=== PATIENT | male | born 1930 | race Caucasian/White ===

== ENCOUNTER 2016-10-09 16:26 | Emergency (ER) | payer OTHER ==
[~2016-10-09] VITALS: Ht 180.3 cm; Wt 92.5 kg
[~2016-10-09 16:26] MED LIST: ADV50050 INH; ALBU18HF IH; AMLO-147 PO; ASPI81TA3 PO; HYDR-3671 PO; LEVO50TA71 PO; OMEP20CA16 PO; PANT40TA3 PO
[2016-10-09 16:35] VITALS: Ht 180.3 cm; Wt 92.5 kg
[2016-10-09] MEDS ORDERED: IPRATROPIUM (NEB) 0.5 MG/2.5 ML AMP NEB STA (17:15)
[2016-10-09] MEDS ORDERED: predniSONE 20 MG TAB PO STA (17:15)
[2016-10-09] MEDS ORDERED: ALBUTEROL 0.083% (NEB) 2.5 MG/3 ML AMP NEB STA (17:15)
[2016-10-09] MEDS ORDERED: AZITHROMYCIN 250 MG TAB PO ONE (17:30)
[2016-10-09] MEDS ORDERED: PRED20TA PO (18:45)
[2016-10-09] MEDS ORDERED: AZIT250T94 PO (18:45)
[2016-10-09] MEDS ORDERED: ALBU18HF INHALATION (18:45)
--- NOTE | 2016-10-09 18:55 | RADRPT ---
PROCEDURE: XR Chest. CLINICAL INDICATION: Asthma exacerbation. TECHNIQUE: Single frontal view of the chest was obtained. COMPARISON: Chest x-ray 12/01/2059 09:36 a.m. FINDINGS: The soft tissues are normal. There are degenerative osteophytes in the thoracic spine. The there a re vascular calcifications in the aortic arch. The heart is enlarged. The cardiomediastinal silhou ette and hilar structures are normal. The pulmonary vasculature is equilibrated. There is a left-si ded aorta. There are perihilar interstitial and basilar infiltrates which have worsened when compare d to 11/26/2015. There are consolidative infiltrates in the left lower lobe partially obscuring the left diaphragm. A left pleural effusion is suspected. The right costophrenic angle is normal. IMPRESSION: 1. Cardiomegaly with mild congestive heart failure and early interstitial pulmonary edema associated with a left pleural effusion. 2. Asymmetric consolidative infiltrates in the left lower lobe may be the result of an associated p neumonia. 3. Atherosclerosis of the aortic arch. 4. Spondylosis of the thoracic spine. RPTAT:AAJJ Physician Natalie Date Time Electronically viewed and signed by Physician Natalie on 10/09/2016 18:55 /
--- NOTE | 2016-10-09 19:19 | ERD ---
ER Documentation Chief Complaint Date/Time DATE: 10/09/16 TIME: 19:17 Chief Complaint cough with SOB and CP with coughx 3 days HPI Patient is an 86-year-old male with asthma presents with shortness of breath. He has had congestion and cough as well as shortness of breath for the past 3 days. It was worse today. He has had no fevers. He tried Tucol per the daughter. He has had no antibiotics as of yet. He does have a primary doctor but has not seen the doctor as of yet for this. ROS All systems reviewed and are negative except as per history of present illness. Medications Home Meds Active Scripts Azithromycin* (Zithromax*) 250 Mg Tablet, 250 MG PO DAILY for 4 Days, TAB Prov:LISA HOUSE MD 10/09/16 Prednisone* (Prednisone*) 20 Mg Tab, 60 MG PO DAILY for 4 Days, TAB Prov:LISA HOUSE MD 10/09/16 Albuterol Sulfate* (Ventolin HFA*) 18 Gm Hfa.aer.ad, 2 PUFF INHALATION Q4H, #1 INHALER Prov:LISA HOUSE MD 10/09/16 Pantoprazole* (Protonix*) 40 Mg Tablet.dr, 40 MG PO BID for 30 Days, TAB Prov:JENNIFER DASH V. CERTIFIED MEDICAL BILLER 11/28/15 Hydralazine Hcl* (Hydralazine Hcl*) 25 Mg Tab, 25 MG PO TID, #120 TAB Prov:JENNIFER DASH V. CERTIFIED MEDICAL BILLER 11/28/15 Amlodipine Besylate* (Amlodipine Besylate*) 10 Mg Tablet, 10 MG PO DAILY for 30 Days, TAB Prov:JENNIFER DASH NP 11/28/15 Reported Medications Levothyroxine Sodium* (Levoxyl*) 50 Mcg Tablet, 50 MCG PO BEFORE BREAKFAST, #30 TAB 11/26/15 Albuterol Sulfate* (Ventolin HFA*) 18 Gm Hfa.aer.ad, 2 PUFF IH DAILY for WHEEZING AND RESP DISTRESS, EA 02/09/14 Salmeterol Xinaf-Fluticasone* (Advair*) 500/50 Diskus Inhaler, 1 INH INH BID, INH 02/09/14 Omeprazole* (Omeprazole*) 20 Mg Capsule.dr, 40 MG PO DAILY, CAP 02/09/14 Aspirin* (Aspirin* Chew) 81 Mg Tab.chew, 81 MG PO DAILY, TAB.CHEW 02/09/14 Allergies Allergies: Coded Allergies: No Known Allergy (Verified , 10/09/16) PMhx/Soc History of Surgery: Yes (cholecystectomy, appendectomy, cataracts) Anesthesia Reaction: No Hx Neurological Disorder: No Hx Respiratory Disorders: Yes (COPD) Hx Cardiac Disorders: Yes (HTN) Hx Psychiatric Problems: No Hx Miscellaneous Medical Probl: Yes (hypothyroid) Hx Alcohol Use: No Hx Substance Use: No Hx Tobacco Use: No FmHx Family History: diabetes Physical Exam Vitals Vital Signs Date Time Temp Pulse Resp B/P Pulse Ox O2 Delivery O2 Flow Rate FiO2 10/09/16 17:27 65 22 100 Nasal Cannula 2.0 10/09/16 17:15 Nasal Cannula 2 10/09/16 16:35 98.2 73 20 172/77 100 Physical Exam Const: No acute distress Head: Atraumatic Eyes: Normal Conjunctiva ENT: Normal External Ears, Nose and Mouth. Neck: Full range of motion..~ No meningismus. Resp: Diffuse expiratory wheezing without accessory muscle use or retractions Cardio: Regular rate and rhythm, no murmurs Abd: Soft, non tender, non distended. Normal bowel sounds Skin: No petechiae or rashes Back: No midline or flank tenderness Ext: No cyanosis, or edema Neur: Awake and alert Psych: Normal Mood and Affect Results 24 hrs Current Medications Medications (Trade) Dose Ordered Sig/Cleo Route PRN Reason Start Time Stop Time Status Last Admin Dose Admin Albuterol (Proventil 0.083% (Neb)) 5 mg ONCE STAT NEB 10/09/16 17:15 10/09/16 17:16 DC 10/09/16 17:27 Ipratropium [place] (Atrovent 0.02% (Neb)) 0.5 mg ONCE STAT NEB 10/09/16 17:15 10/09/16 17:16 DC 10/09/16 17:27 Prednisone (Prednisone) 60 mg ONCE STAT PO 10/09/16 17:15 10/09/16 17:16 DC 10/09/16 17:23 Azithromycin (Zithromax) 500 mg ONCE ONCE PO 10/09/16 17:30 10/09/16 17:31 DC 10/09/16 17:23 Procedures/MDM PROCEDURE: XR Chest. CLINICAL INDICATION: Asthma exacerbation. TECHNIQUE: Single frontal view of the chest was obtained. COMPARISON: Chest x-ray 12/01/2059 09:36 a.m. FINDINGS: The soft tissues are normal. There are degenerative osteophytes in the thoracic spine. The there are vascular calcifications in the aortic arch. The heart is enlarged. The cardiomediastinal silhouette and hilar structures are normal. The pulmonary vasculature is equilibrated. There is a left-sided aorta. There are perihilar interstitial and basilar infiltrates which have worsened when compared to 11/26/2015. There are consolidative infiltrates in the left lower lobe partially obscuring the left diaphragm. A left pleural effusion is suspected. The right costophrenic angle is normal. IMPRESSION: 1. Cardiomegaly with mild congestive heart failure and early interstitial pulmonary edema associated with a left pleural effusion. 2. Asymmetric consolidative infiltrates in the left lower lobe may be the result of an associated pneumonia. 3. Atherosclerosis of the aortic arch. 4. Spondylosis of the thoracic spine. RPTAT:AAJJ Physician N[place]ile Date Time Electronically viewed and signed by Physician Natalie on 10/09/2016 18:55 Patient is an 86-year-old male with asthma presents with acute asthma exacerbation and also possible pneumonia. The patient was given albuterol and Atrovent as well as Zithromax and prednisone. At this point I feel outpatient management is appropriate as the patient is in no respiratory distress. The patient will be given a prescription for Ventolin, Zithromax, and prednisone. The patient can follow-up with the primary doctor within 24-48 hours. The patient can return for any worsening symptoms. Departure Diagnosis: Primary Impression: Shortness of breath Additional Impression: Asthma Asthma severity: unspecified severity Asthma complication type: with acute exacerbation Qualified Code: J45.901 - Asthma with acute exacerbation, unspecified asthma severity Condition: Fair Patient Instructions: Asthma, Acute (Adult) Referrals: NUHA GUTHRIE (PCP) Additional Instructions: Llame al doctor RAF y jeannie willie CLEMENTINE PARA DENTRO DE 1-2 YIN.Dgale a la secretaria que nosotros le instruimos hacer esta clementine.Avise o llame si padilla condicin se empeora antes de la clementine. Regresa aqui si peor o no mejor. LISA HOUSE MD Oct 09, 2016 19:19
== END 2016-10-09 19:15 | disposition home or self-care (01) ==
LOC: FTE 16:26
DX: R06.02 Shortness of breath (principal); J45.901 Unspecified asthma with (acute) exacerbation; I10 Essential (primary) hypertension; J44.9 Chronic obstructive pulmonary disease, unspecified; E03.9 Hypothyroidism, unspecified; Z79.82 Long term (current) use of aspirin
CPT/HCPCS: 71010; 94644; 94664; J7512; Z7502; Z7610

== ENCOUNTER 2016-11-05 15:36 | Emergency (ER) | payer OTHER ==
[~2016-11-05] VITALS: Ht 172.7 cm; Wt 94.0 kg
[~2016-11-05 15:36] MED LIST changes: +ALBU18HF INHALATION; +AZIT250T94 PO; +PRED20TA PO
[2016-11-05 15:39] VITALS: Ht 172.7 cm; Wt 94.0 kg
[2016-11-05] MEDS ORDERED: ALBUTEROL 0.083% (NEB) 2.5 MG/3 ML AMP INH STA (17:20)
--- NOTE | 2016-11-05 17:24 | ERD ---
ER Documentation Chief Complaint Date/Time DATE: 11/05/16 TIME: 17:21 Chief Complaint Cough for 1 week, worse at night HPI Patient is an 86-year-old male with history of asthma who presents with gradual onset, constant, moderate shortness of breath associated with dry cough for 3 weeks. He states that the symptoms are worse when he lays flat at night. He has not had fever or mucus production. He denies chest or back pain. The patient does not have history of CHF or WA. Patient has not had lower extremity swelling. The patient has history of hypertension and has been compliant with medications. He does not have history of renal insufficiency. ROS All systems reviewed and are negative except as per history of present illness. Medications Home Meds Active Scripts Prednisone* (Prednisone*) 20 Mg Tab, 60 MG PO DAILY for 4 Days, TAB Prov:JONNIE ZHAO MD 11/05/16 Albuterol Sulfate* (Ventolin HFA*) 18 Gm Hfa.aer.ad, 2 PUFF INHALATION Q4H, #1 INHALER Prov:JONNIE ZHAO MD 11/05/16 Albuterol Sulfate* (Albuterol Sulfate* Neb) 0.083%-3 Ml Neb, 2.5 MG NEB Q4 Y for SHORTNESS OF BREATH, #30 EA Prov:JONNIE ZHAO MD 11/05/16 Reported Medications Montelukast Sodium* (Montelukast Sodium*) 10 Mg Tablet, 10 MG PO QHS, #30 TAB 11/05/16 Aspirin (Aspir-Low) 81 Mg Tablet.dr, 81 MG PO DAILY 11/05/16 Naproxen* (Naproxen*) 250 Mg Tablet, 250 MG PO BID, TAB 11/05/16 Albuterol Sulfate* (Albuterol Sulfate* Neb) Unknown Strength Neb, 2 PUFF NEB Q4H Y for WHEEZING AND SOB, #30 VIAL 11/05/16 Lisinopril* (Lisinopril*) 5 Mg Tablet, 5 MG PO DAILY, #30 TAB 11/05/16 Levothyroxine Sodium* (Levoxyl*) 50 Mcg Tablet, 50 MCG PO BEFORE BREAKFAST, #30 TAB 11/26/15 Albuterol Sulfate* (Ventolin HFA*) 18 Gm Hfa.aer.ad, 2 PUFF IH DAILY for WHEEZING AND RESP DISTRESS, EA 02/09/14 Omeprazole* (Omeprazole*) 20 Mg Capsule.dr, 40 MG PO DAILY, CAP 02/09/14 Discontinued Reported Medications Salmeterol Xinaf-Fluticasone* (Advair*) 500/50 Diskus Inhaler, 1 INH INH BID, INH 02/09/14 Aspirin* (Aspirin* Chew) 81 Mg Tab.chew, 81 MG PO DAILY, TAB.CHEW 02/09/14 Discontinued Scripts Azithromycin* (Zithromax*) 250 Mg Tablet, 250 MG PO DAILY for 4 Days, TAB Prov:LISA HOUSE MD 10/09/16 Prednisone* (Prednisone*) 20 Mg Tab, 60 MG PO DAILY for 4 Days, TAB Prov:LISA HOUSE MD 10/09/16 Albuterol Sulfate* (Ventolin HFA*) 18 Gm Hfa.aer.ad, 2 PUFF INHALATION Q4H, #1 INHALER Prov:LISA HOUSE MD 10/09/16 Pantoprazole* (Protonix*) 40 Mg Tablet.dr, 40 MG PO BID for 30 Days, TAB Prov:DASHJENNIFER V. INSULATION SPRAYER 11/28/15 Hydralazine Hcl* (Hydralazine Hcl*) 25 Mg Tab, 25 MG PO TID, #120 TAB Prov:DASH,JENNIFER V. INSULATION SPRAYER 11/28/15 Amlodipine Besylate* (Amlodipine Besylate*) 10 Mg Tablet, 10 MG PO DAILY for 30 Days, TAB Prov:DASH,JENNIFER V. INSULATION SPRAYER 11/28/15 Allergies Allergies: Coded Allergies: No Known Allergy (Verified , 10/09/16) PMhx/Soc Past medical history: Hypothyroidism, hypertension, asthma Past surgical history: Denies Social history: Never smoked, no alcohol History of Surgery: Yes (cholecystectomy, appendectomy, cataracts) Anesthesia Reaction: No Hx Neurological Disorder: No Hx Respiratory Disorders: Yes (COPD) Hx Cardiac Disorders: Yes (HTN) Hx Psychiatric Problems: No Hx Miscellaneous Medical Probl: Yes (hypothyroid) Hx Alcohol Use: No Hx Substance Use: No Hx Tobacco Use: No Smoking Status: Never smoker FmHx Family History: No coronary disease, No diabetes Physical Exam Vitals Vital Signs Date Time Temp Pulse Resp B/P Pulse Ox O2 Delivery O2 Flow Rate FiO2 11/05/16 17:54 64 18 96 21 11/05/16 17:20 70 18 206/85 96 Room Air 11/05/16 15:39 98.6 66 18 223/91 100 Physical Exam Const: Alert, no acute distress Head: Atraumatic Eyes: Normal Conjunctiva, no pallor, no icterus ENT: Normal External Ears, Nose and Mouth. Moist mucous membranes Neck: Full range of motion..~ No meningismus. No JVD Resp: Prolonged expiration and diffuse rhonchi, no rales Cardio: Regular rate and rhythm, no murmurs Abd: Soft, non tender, non distended. Skin: No petechiae or rashes Back: No midline or flank tenderness Ext: No cyanosis, trace pitting edema at bilateral ankles, no calf tenderness. 2+ DP pulse bilaterally Neur: Awake and alert, cranial nerves II through XII intact bilaterally, strength and sensation full in 4 extremities. Psych: Normal Mood and Affect Result Diagram: 11/05/16 1736 11/05/16 1736 Results 24 hrs Laboratory Tests Test 11/05/16 17:25 11/05/16 17:36 Blood Gas Specimen Source Blood venous Arterial Blood Date Drawn 11/05/2016 5:30:55 PM Arterial Blood Gas Puncture Site VENOUS LINE Benjamín Test N/A Venous Blood pH 7.329 Venous Blood pCO2 (Temp Corrected) 37.4mmHG Venous Blood pO2 (Temp Corrected) 31.2mmHG Venous Blood HCO3 19.2mmol/L Venous Blood Oxygen Saturation 57.5mmHG Venous Blood Base Excess -6.1mmol/L Venous Blood Total Hemoglobin 12.2g/dl Venous Blood Oxyhemoglobin 57.2% Venous Blood Methemoglobin 0.2% Carboxyhemoglobin 0.4% Blood Gas Temperature 37.0C Blood Gas Modality ROOM AIR FiO2 21.0% Blood Gas Notified Whom RT Blood Gas Notified Time 11/05/2016 5:39:24 PM White Blood Count 7.210^3/ul Red Blood Count 3.7110^6/ul Hemoglobin 12.0g/dl Hematocrit 33.1% Mean Corpuscular Volume 89.2fl Mean Corpuscular Hemoglobin 32.3pg Mean Corpuscular Hemoglobin Concent 36.3g/dl Red Cell Distribution Width 12.1% Platelet Count 96101^3/UL Mean Platelet Volume 10.6fl Neutrophils % 46.0% Lymphocytes % 19.0% Monocytes % 10.0% Eosinophils % 25.0% Basophils % % Nucleated Red Blood Cells % 0.0/100WBC Neutrophils # 3.310^3/ul Lymphocytes # 1.410^3/ul Monocytes # 0.710^3/ul Eosinophils # 1.810^3/ul Basophils # 10^3/ul Nucleated Red Blood Cells # 10^3/ul Prothrombin Time 13.0Sec Prothrombin Time Ratio 1.0 INR International Normalized Ratio 0.98 Sodium Level 133mmol/L Potassium Level 5.2mmol/L Chloride Level 96mmol/L Carbon Dioxide Level 23mmol/L Anion Gap 19 Blood Urea Nitrogen 20mg/dl Creatinine 1.74mg/dl Glucose Level 102mg/dl Calcium Level 9.1mg/dl Total Bilirubin 0.6mg/dl Direct Bilirubin 0.00mg/dl Indirect Bilirubin 0.6mg/dl Aspartate Amino Transf (AST/SGOT) 32IU/L Alanine Aminotransferase (ALT/SGPT) 33IU/L Alkaline Phosphatase 56IU/L Troponin I < 0.012ng/ml B-Type Natriuretic Peptide 588PG/ML Total Protein 7.9g/dl Albumin 4.4g/dl Globulin 3.50g/dl Albumin/Globulin Ratio 1.25 Current Medications Medications (Trade) Dose Ordered Sig/Cleo Route PRN Reason Start Time Stop Time Status Last Admin Dose Admin Albuterol (Proventil 0.083% (Neb)) 5 mg ONCE STAT INH 11/05/16 17:20 11/05/16 17:22 DC 11/05/16 17:44 Methylprednisolone Sodium Succinate (Solu-Medrol) 125 mg ONCE ONCE IV 11/05/16 17:30 11/05/16 17:31 DC 11/05/16 17:38 Ipratropium [place] (Atrovent 0.02% (Neb)) 0.5 mg ONCE ONCE HHN 11/05/16 17:30 11/05/16 17:31 DC 11/05/16 17:44 Procedures/MDM EKG read by me: Time 1850, rate 71 Rhythm: Normal sinus [place]: Normal Intervals: Normal ST-T waves: No ischemic changes, T-wave inversion in aVL only Ectopy: Occasional PACs Q-waves: Lead V2 only Impression: Sinus rhythm with occasional PACs, evidence of prior septal infarct, no ischemic changes. MDM: Patient is an 86-year-old male with long history of asthma who presents with 3 weeks of progressive dyspnea and wheezing. On exam he has prolonged expiration and rhonchi. His chest x-ray is unremarkable. He has no ischemia on EKG, a negative troponin, and no significant BNP elevation. He has no evidence of infection. He has evidence of chronic renal insufficiency. He was treated with albuterol and steroids in the ER, and states that he feels significantly better. He still has mild residual wheezing but improved air movement, no tachypnea or hypoxia. Symptoms are consistent with asthma exacerbation. The patient does not have a smoking history. I will discharge the patient with prescription for albuterol for his nebulizer, which he ran out of recently, as well as albuterol inhaler which she does not have. I will also give him a short course of p.o. steroids. The patient's blood pressure was elevated in the ER, and he has a history of hypertension. He is on multiple antihypertensive medications. I advised his daughter to monitor his blood pressure closely, to make sure that he takes his medications as prescribed, and to follow-up with his PMD in the next 2-3 days for blood pressure recheck. The patient's blood pressure did improve slightly without further treatment while he was in the ER. Departure Diagnosis: Primary Impression: Asthma exacerbation Additional Impression: Poorly-controlled hypertension Condition: JONNIE Tracey MD Nov 05, 2016 17:24
[2016-11-05] MEDS ORDERED: IPRATROPIUM (NEB) 0.5 MG/2.5 ML AMP HHN ONE (17:30)
[2016-11-05] MEDS ORDERED: METHYLPREDNISOLONE 125 MG INJ IV ONE (17:30)
[2016-11-05 17:39] LABS: MODE ROOM AIR; MetHgb Venous 0.2 %; Sample Type Blood venous; Venous COHb 0.4 %; Venous Fraction OxyHgb 57.2 %; Venous Total Hemglobin 12.2 g/dl
[2016-11-05 17:48] LABS: HEMATOCRIT 33.1 % (42.0-52.0); MEAN CORPUSCULAR HEMOGLOBIN 32.3 pg (29.0-33.0); MEAN CORPUSCULAR HGB CONC 36.3 g/dl (32.0-37.0); MEAN CORPUSCULAR VOLUME 89.2 fl (82.0-101.0); MEAN PLATELET VOLUME 10.6 fl (7.4-10.4); PLATELET COUNT 157 10^3/UL (140-415); RED BLOOD COUNT 3.71 10^6/ul (4.70-6.10); RED CELL DISTRIBUTION WIDTH 12.1 % (11.5-14.5); WHITE BLOOD COUNT 7.2 10^3/ul (4.8-10.8)
--- NOTE | 2016-11-05 18:03 | RADRPT ---
PROCEDURE: XR Chest. CLINICAL INDICATION: Shortness of breath TECHNIQUE: Single AP portable chest. COMPARISON: 11/26/2015 Chest x-ray FINDINGS: The cardiomediastinal silhouette is within normal limits of size. Atherosclerotic calcification of t he aorta. The lungs are clear without pleural effusion or focal consolidation. No pneumothorax. The osseous structures and soft tissues are unremarkable. IMPRESSION: 1. No evidence for active cardiopulmonary disease. RPTAT:AAJJ Physician Vu Date Time Electronically viewed and signed by Physician Vu on 11/05/2016 18:03 COURTNEY/
[2016-11-05 18:09] LABS: INR 0.98
[2016-11-05 18:11] LABS: ALANINE AMINOTRANSFERASE 33 IU/L (13-69); ALBUMIN 4.4 g/dl (3.3-4.9); ALBUMIN/GLOBULIN RATIO 1.25; ALKALINE PHOSPHATASE 56 IU/L (42-121); ANION GAP 19 (8-16); ASPARTATE AMINO TRANSFERASE 32 IU/L (15-46); BILIRUBIN,INDIRECT 0.6 mg/dl (0-1.1); BILIRUBIN,TOTAL 0.6 mg/dl (0.2-1.3); BLOOD UREA NITROGEN 20 mg/dl (7-20); CALCIUM 9.1 mg/dl (8.4-10.2); CARBON DIOXIDE 23 mmol/L (21-31); CHLORIDE 96 mmol/L (97-110); CREATININE 1.74 mg/dl (0.61-1.24); GLUCOSE 102 mg/dl (70-220); SODIUM 133 mmol/L (135-144); TOTAL PROTEIN 7.9 g/dl (6.1-8.1)
[2016-11-05 18:16] LABS: POTASSIUM 5.2 mmol/L (3.5-5.1)
[2016-11-05 18:23] LABS: B-TYPE NATRIURETIC PEPTIDE 588 PG/ML (0-450)
[2016-11-05 18:25] LABS: TROPONIN-I < 0.012 ng/ml (0.00-0.12)
[2016-11-05] MEDS ORDERED: LISI-313 PO (18:30)
[2016-11-05] MEDS ORDERED: NAPR-683 PO (18:32)
[2016-11-05] MEDS ORDERED: ALBU2.5V3 NEB ×2 (18:32→18:57)
[2016-11-05] MEDS ORDERED: ASPI81TA50 PO (18:33)
[2016-11-05] MEDS ORDERED: MONT10TA24 PO (18:33)
[2016-11-05] MEDS ORDERED: ALBU18HF INHALATION (18:57)
[2016-11-05] MEDS ORDERED: PRED20TA PO (18:57)
[2016-11-05 19:01] LABS: EOSINOPHILS # 1.8 10^3/ul (0.0-0.5); LYMPHOCYTES # 1.4 10^3/ul (0.8-2.9); MONOCYTE # 0.7 10^3/ul (0.3-0.9); NEUTROPHIL # 3.3 10^3/ul (1.6-7.5)
[2016-11-05 19:08] VITALS: BP 199/88; PULSE 79; RESP 22; TEMP 98.1
== END 2016-11-05 19:12 | disposition home or self-care (01) ==
LOC: E/R 15:36
DX: J45.901 Unspecified asthma with (acute) exacerbation (principal); I10 Essential (primary) hypertension; E03.9 Hypothyroidism, unspecified; R06.02 Shortness of breath; Z79.82 Long term (current) use of aspirin
CPT/HCPCS: 36415; 71010; 80053; 82803; 83880; 84484; 85025; 85610; 93005; 94664; 96374; J2930; Z7502; Z7610

== ENCOUNTER 2016-11-29 11:55 | Inpatient (IN) | payer OTHER ==
[~2016-11-29] VITALS: Ht 172.7 cm; Wt 97.6 kg
[~2016-11-29 11:55] MED LIST changes: -ADV50050 INH; +ALBU2.5V3 NEB; -AMLO-147 PO; -ASPI81TA3 PO; +ASPI81TA50 PO; -AZIT250T94 PO; -HYDR-3671 PO; +LISI-313 PO; +MONT10TA24 PO; +NAPR-683 PO; -PANT40TA3 PO
[2016-11-29] MEDS ORDERED: METHYLPREDNISOLONE 125 MG INJ IV STA (13:03)
[2016-11-29] MEDS ORDERED: IPRATROPIUM (NEB) 0.5 MG/2.5 ML AMP INH STA (13:03)
[2016-11-29] MEDS ORDERED: ALBUTEROL 0.083% (NEB) 2.5 MG/3 ML AMP INH STA ×2 (13:03→15:27)
[2016-11-29 13:51] LABS: INR 0.96; PROTIME 12.8 Sec (12.2-14.2)
[2016-11-29 13:52] LABS: PARTIAL THROMBOPLASTIN TIME 28.6 Sec (25.0-35.0)
--- NOTE | 2016-11-29 13:52 | RADRPT ---
PROCEDURE: XR Chest. CLINICAL INDICATION: Shortness of breath. TECHNIQUE: Single frontal view. COMPARISON: 11/05/2016. FINDINGS: The lungs are clear. The heart size is normal. There is calcification in the aorta consistent with atherosclerosis. There is no pleural effusion. There is no pneumothorax. IMPRESSION: 1. Atherosclerosis. 2. Otherwise normal chest radiograph. RPTAT: QQ .Aneesh Rico MD, MD Date Time Electronically viewed and signed by .Aneesh Rico MD, MD on 11/29/2016 13:52 .R/
[2016-11-29 14:00] LABS: ANION GAP 15 (8-16); BLOOD UREA NITROGEN 17 mg/dl (7-20); CALCIUM 9.1 mg/dl (8.4-10.2); CARBON DIOXIDE 24 mmol/L (21-31); CHLORIDE 99 mmol/L (97-110); CREATININE 1.49 mg/dl (0.61-1.24); GLUCOSE 101 mg/dl (70-220); POTASSIUM 5.1 mmol/L (3.5-5.1); SODIUM 133 mmol/L (135-144)
[2016-11-29 14:11] LABS: HEMATOCRIT 33.1 % (42.0-52.0); HEMOGLOBIN 11.8 g/dl (14.0-18.0); MEAN CORPUSCULAR HEMOGLOBIN 32.2 pg (29.0-33.0); MEAN CORPUSCULAR HGB CONC 35.6 g/dl (32.0-37.0); MEAN CORPUSCULAR VOLUME 90.4 fl (82.0-101.0); PLATELET COUNT 140 10^3/UL (140-415); RED BLOOD COUNT 3.66 10^6/ul (4.70-6.10); RED CELL DISTRIBUTION WIDTH 12.4 % (11.5-14.5); WHITE BLOOD COUNT 7.8 10^3/ul (4.8-10.8)
[2016-11-29 14:13] LABS: TROPONIN-I < 0.012 ng/ml (0.00-0.12)
--- NOTE | 2016-11-29 14:16 | ERA ---
ER Documentation Chief Complaint Date/Time DATE: 11/29/16 TIME: 14:15 Chief Complaint Shortness of Breath HPI This is a 86-year-old male with a past medical history of hypertension, hypothyroidism, significant COPD with previous exacerbations who is presenting with 2 days of worsening cough with productive white yellow sputum, progressive worsening wheezes, shortness of breath and fatigue. The patient does not feel sick. He denies any fever or chills. He denies any nausea or vomiting. He does not endorse any chest pain or radiating pain. He has no abdominal pain. He has no changes to bowel movements urination. He has no focal deficits. ROS All systems reviewed and are negative except as per history of present illness. Medications Home Meds Active Scripts Prednisone* (Prednisone*) 20 Mg Tab, 60 MG PO DAILY for 4 Days, TAB Prov:JONNIE ZHAO MD 11/05/16 Albuterol Sulfate* (Ventolin HFA*) 18 Gm Hfa.aer.ad, 2 PUFF INHALATION Q4H, #1 INHALER Prov:JONNIE ZHAO MD 11/05/16 Albuterol Sulfate* (Albuterol Sulfate* Neb) 0.083%-3 Ml Neb, 2.5 MG NEB Q4 Y for SHORTNESS OF BREATH, #30 EA Prov:JONNIE ZHAO MD 11/05/16 Reported Medications Montelukast Sodium* (Montelukast Sodium*) 10 Mg Tablet, 10 MG PO QHS, #30 TAB 11/05/16 Aspirin (Aspir-Low) 81 Mg Tablet.dr, 81 MG PO DAILY 11/05/16 Naproxen* (Naproxen*) 250 Mg Tablet, 250 MG PO BID, TAB 11/05/16 Albuterol Sulfate* (Albuterol Sulfate* Neb) Unknown Strength Neb, 2 PUFF NEB Q4H Y for WHEEZING AND SOB, #30 VIAL 11/05/16 Lisinopril* (Lisinopril*) 5 Mg Tablet, 5 MG PO DAILY, #30 TAB 11/05/16 Levothyroxine Sodium* (Levoxyl*) 50 Mcg Tablet, 50 MCG PO BEFORE BREAKFAST, #30 TAB 11/26/15 Albuterol Sulfate* (Ventolin HFA*) 18 Gm Hfa.aer.ad, 2 PUFF IH DAILY for WHEEZING AND RESP DISTRESS, EA 11/7/14 Omeprazole* (Omeprazole*) 20 Mg Capsule.dr, 40 MG PO DAILY, CAP 02/09/14 Allergies Allergies: Coded Allergies: No Known Allergy (Verified , 10/09/16) PMhx/Soc History of Surgery: Yes (cholecystectomy, appendectomy, cataracts) Anesthesia Reaction: No Hx Neurological Disorder: No Hx Respiratory Disorders: Yes (COPD) Hx Cardiac Disorders: Yes (HTN) Hx Psychiatric Problems: No Hx Miscellaneous Medical Probl: Yes (hypothyroid) Hx Alcohol Use: No Hx Substance Use: No Hx Tobacco Use: No Smoking Status: Never smoker Physical Exam Vitals Vital Signs Date Time Temp Pulse Resp B/P Pulse Ox O2 Delivery O2 Flow Rate FiO2 11/29/16 15:24 81 17 172/97 94 Room Air 11/29/16 14:04 112 22 96 21 11/29/16 11:59 98.2 69 28 204/80 96 Physical Exam Const: [] Head: Atraumatic Eyes: Normal Conjunctiva ENT: Normal External Ears, Nose and Mouth. Neck: Full range of motion..~ No meningismus. Resp: Clear to auscultation bilaterally Cardio: Regular rate and rhythm, no murmurs Abd: Soft, non tender, non distended. Normal bowel sounds Skin: No petechiae or rashes Back: No midline or flank tenderness Ext: No cyanosis, or edema Neur: Awake and alert Psych: Normal Mood and Affect Result Diagram: 11/29/16 1315 11/29/16 1315 Results 24 hrs Laboratory Tests Test 11/29/16 13:15 White Blood Count 7.810^3/ul Red Blood Count 3.6610^6/ul Hemoglobin 11.8g/dl Hematocrit 33.1% Mean Corpuscular Volume 90.4fl Mean Corpuscular Hemoglobin 32.2pg Mean Corpuscular Hemoglobin Concent 35.6g/dl Red Cell Distribution Width 12.4% Platelet Count 70090^3/UL Mean Platelet Volume 11.0fl Neutrophils % % Lymphocytes % % Monocytes % % Eosinophils % % Basophils % % Nucleated Red Blood Cells % 0.0/100WBC Neutrophils # (Manual) 3.410^3/ul Lymphocytes # 10^3/ul Monocytes # 10^3/ul Eosinophils # 10^3/ul Basophils # 10^3/ul Nucleated Red Blood Cells # 10^3/ul Prothrombin Time 12.8Sec Prothrombin Time Ratio 1.0 INR International Normalized Ratio 0.96 Activated Partial Thromboplast Time 28.6Sec Sodium Level 133mmol/L Potassium Level 5.1mmol/L Chloride Level 99mmol/L Carbon Dioxide Level 24mmol/L Anion Gap 15 Blood Urea Nitrogen 17mg/dl Creatinine 1.49mg/dl Glucose Level 101mg/dl Calcium Level 9.1mg/dl Troponin I < 0.012ng/ml Current Medications Medications (Trade) Dose Ordered Sig/Cleo Route PRN Reason Start Time Stop Time Status Last Admin Dose Admin Albuterol (Proventil 0.083% (Neb)) 7.5 mg ONCE STAT INH 11/29/16 13:03 11/29/16 13:05 DC 11/29/16 14:03 Ipratropium [place] (Atrovent 0.02% (Neb)) 1.5 mg ONCE STAT INH 11/29/16 13:03 11/29/16 13:05 DC 11/29/16 14:02 Methylprednisolone Sodium Succinate (Solu-Medrol) 125 mg ONCE STAT IV 11/29/16 13:03 11/29/16 13:05 DC 11/29/16 13:14 Albuterol (Proventil 0.083% (Neb)) 7.5 mg ONCE STAT INH 11/29/16 15:27 11/29/16 15:28 DC Procedures/MDM The patient's presentation warrants a cardiopulmonary workup. The patient does not not endorse symptoms of a cardiac pathology, however given his age and shortness of breath and fatigue, a cardiac workup will be performed. The patient is diffusely wheezy, and my suspicion for a COPD exacerbation is quite high. The patient does not have a sputum color change, but he does have a productive cough that has been more concerning to him recently. The patient's blood work was obtained and reviewed. The patient does not have a leukocytosis or left shift. He is afebrile and I do not suspect a systemic infection. The patient does have a mild anemia that does not need to be emergently treated. The patient's BMP demonstrates an elevated creatinine, but this is around his baseline. The rest of the BMP is unremarkable. The patient' s troponin is negative. The patient's chest x-ray is as follows: PROCEDURE: XR Chest. CLINICAL INDICATION: Shortness of breath. TECHNIQUE: Single frontal view. COMPARISON: 11/05/2016. FINDINGS: The lungs are clear. The heart size is normal. There is calcification in the aorta consistent with atherosclerosis. There is no pleural effusion. There is no pneumothorax. IMPRESSION: 1. Atherosclerosis. 2. Otherwise normal chest radiograph. .Aneesh Rico MD, Date Time Electronically viewed and signed by .Aneesh Rico MD, on 11/29/2016 13:52 I do not see signs of pleural effusion or pulmonary edema or pneumonia, which is reassuring. I do not see an infectious etiology of the patient's symptoms. I do not intend to start antibiotics at this time. EKG read by me: Rate/Rhythm: Regular rate at a rate of 65, irregular rhythm secondary to PVCs Intervals: Normal [place]: Leftward impression: No evidence of ischemia or arrhythmia My suspicion for a cardiac etiology of his symptoms given his EKG and negative troponin and lack of chest pain or other cardiac symptoms is low. The patient was given 2 hours of nebulized treatments of ipratropium and albuterol. He is also given 125 mg Solu-Medrol. This treatment significantly improved his symptoms. The patient will require albuterol therapy over the next 2 days. He may then continue with as needed therapy as prescribed by his doctor. The patient also be given a short course of steroids. This occurred at the beginning of November as well. He does require close follow-up in the next 2-3 days for reevaluation. He will be given precautions with which to return to the emergency department. Departure Diagnosis: Primary Impression: Shortness of breath Additional Impression: COPD exacerbation Condition: Stable Patient Instructions: Treatments for COPD, What Is COPD? Additional Instructions: Your symptoms are concerning for a COPD exacerbation. Your diffusely wheezy in the emergency department. Your given nebulized treatments of albuterol and ipratropium in addition to steroids in the ER with significant improvement of your symptoms. You have a nebulizer at home, but you are out of your albuterol medication. We will provide you prescription for both her albuterol as well as steroids. Is very important to follow-up with your doctor next week. Please call on Wednesday to schedule an appointment. Please return to the emergency department for any concerns. Thank you for for coming to [facility] for your care today. Please ask your nurse or provider if you have questions about your care today and do not leave until all your questions have been answered. Please use any medications given as directed and follow-up with your doctor (or the doctor you were referred to) in the next 2-3 days. If you do not have a primary care doctor you may follow up at the [facility] (listed below). You may also use motrin and tylenol as needed for fever and/or pain unless instructed otherwise by your provider or nurse. Indications for more urgent follow-up have been discussed, but you may return to the Emergency Department at ANY time for any worrisome or worsening symptoms. If you have abdominal pain, please know that no test or exam you received is perfect and you should follow up within 8 hours for continued pain. If you had any imaging studies today, such as an X-Ray or CT Scan, these studies will be reviewed later by a radiologist. You will be called if there are important findings that were not identified today, so make sure the contact information you provided at registration is correct. If you received any narcotic pain control medicine today, such as Vicodin, Morphine or Dilaudid, your coordination and judgment may be affected for a number of hours. Please do not drive or operate heavy machinery, and you may want someone to assist you at home. If you were given a prescription for narcotic medication, be aware that it is very addictive- use sparingly and only if necessary. RAFAEL PULIDO MD Nov 29, 2016 14:16
[2016-11-29] MEDS ORDERED: PRED20TA PO (15:37)
[2016-11-29] MEDS ORDERED: ALBU2.5V3 NEB (15:37)
[2016-11-29 16:05] LABS: EOSINOPHILS % (M) 23 % (0-7); MONOCYTES % (M) 5 % (0-11); PLATELET ESTIMATE NORMAL
[2016-11-29] MEDS ORDERED: ONDANSETRON 4 MG INJ IV PRN (18:00)
[2016-11-29] MEDS ORDERED: LEVOFLOXACIN 500MG/D5W (PMX) 100 ML IVPB ONE (18:00)
[2016-11-29] MEDS ORDERED: ACETAMINOPHEN 325 MG TAB PO PRN (18:00)
--- NOTE | 2016-11-29 21:18 | HP ---
Date/Time of Note Date/Time of Note DATE: 11/29/16 TIME: 20:52 Assessment/Plan VTE Prophylaxis VTE Prophylaxis Intervention: LMWH, other Assessment/Plan Assessment/Plan - COPD EXACERBATION - Pulmonary consult- Dr You notified - steroidds - Levaquin - breathing treatments - KILO - Nephrology consult- dr Bernstein notified - Abnormal EKG - will get cardiology consult- notified HTN - Lisiniprill - Hydralazine PRN hypothyroid - SYNTHRYOID lOVENOX pROTONIX dw Dr Mcallister HPI/ROS Admit Date/Time Admit Date/Time Hx of Present Illness HPI This is a 86-year-old male with a past medical history of hypertension, hypothyroidism, significant COPD with previous exacerbations who is presenting with 2 days of worsening cough with productive white yellow sputum, progressive worsening wheezes, shortness of breath and fatigue. The patient does not feel sick. He denies any fever or chills. He denies any nausea or vomiting. He does not endorse any chest pain or radiating pain. He has no abdominal pain. He has no changes to bowel movements urination. He has no focal deficits. ROS All systems reviewed and are negative except as per history of present illness. Allergies Allergies: Coded Allergies: No Known Allergy (Verified , 10/09/16) PMhx/Soc History of Surgery: Yes (cholecystectomy, appendectomy, cataracts) Anesthesia Reaction: No Hx Neurological Disorder: No Hx Respiratory Disorders: Yes (COPD) Hx Cardiac Disorders: Yes (HTN) Hx Psychiatric Problems: No Hx Miscellaneous Medical Probl: Yes (hypothyroid) Hx Alcohol Use: No Hx Substance Use: No Hx Tobacco Use: No Smoking Status: Never smoker ROS ENT: no complaints Respiratory: shortness of breath Cardiovascular: no complaints Gastrointestinal: no complaints Genitourinary: no complaints Musculoskeletal: no complaints PMH/Family/Social Social History Smoking Status: Never smoker Exam/Review of Systems Vital Signs Vitals Vital Signs Date Time Temp Pulse Resp B/P Pulse Ox O2 Delivery O2 Flow Rate FiO2 11/29/16 19:20 98.3 83 18 152/83 94 Room Air 11/29/16 14:04 21 Exam Constitutional: alert, oriented, well developed Respiratory: diminished breath sounds Cardiovascular: nl pulses Gastrointestinal: non-tender, soft Musculoskeletal: nl extremities to inspection Extremities: normal pulses Neurological: nl mental status, nl speech Labs Result Diagram: 8/27/17 1315 11/29/16 1315 Procedures Procedures The patient's chest x-ray is as follows: PROCEDURE: XR Chest. CLINICAL INDICATION: Shortness of breath. TECHNIQUE: Single frontal view. COMPARISON: 11/05/2016. FINDINGS: The lungs are clear. The heart size is normal. There is calcification in the aorta consistent with atherosclerosis. There is no pleural effusion. There is no pneumothorax. IMPRESSION: 1. Atherosclerosis. 2. Otherwise normal chest radiograph. .Aneesh Rico MD, MD Date Time Electronically viewed and signed by .Aneesh Rico MD, MD on 11/29/2016 13:52 I do not see signs of pleural effusion or pulmonary edema or pneumonia, which is reassuring. I do not see an infectious etiology of the patient's symptoms. I do not intend to start antibiotics at this time. EKG read by me: Rate/Rhythm: Regular rate at a rate of 65, irregular rhythm secondary to PVCs Intervals: Normal [place]: Leftward impression: No evidence of ischemia or arrhythmia MELVIN MARROQUIN Nov 29, 2016 21:03
[2016-11-29] MEDS ORDERED: PROVENTIL HFA 6.7GM INHALER INH SCH (21:30)
[2016-11-29] MEDS ORDERED: ALBUTEROL 0.083% (NEB) 2.5 MG/3 ML AMP NEB PRN ×2 (21:30)
[2016-11-29 22:14] LABS: CHOL/HDL RATIO 3.3 RATIO
--- NOTE | 2016-11-29 23:02 | CONS ---
Date/Time of Note Date/Time of Note DATE: 11/29/16 TIME: 23:02 Assessment/Plan Assessment/Plan Additional Assessment/Plan 1. acute kidney injury due to prerenal azotemia 2. Hyponatremia due to hypovolemic hyponatremia 3. acute COPD exacerbation 4. HTN 5. Hypothyroidism Plan: IV levaquin IV solumedrol Monitor Electrolytes, especially Na since pt is on IV steroids BP stable Pulmonary has been consulted on the case Thanks for consultation, will follow up Consultation Date/Type/Reason Admit Date/Time 11/29/2016 Date of Consultation: Nov 30, 2016 Type of Consultation: NEPHROLOGY Reason for Consultation acute renal failure, COPD Referring Provider: JONAS CALDERON MD Hx of Present Illness 86-year-old male with a past medical history of hypertension, hypothyroidism, significant COPD with previous exacerbations who is presenting with 2 days of worsening cough with productive white yellow sputum, progressive worsening wheezes, shortness of breath and fatigue. The patient does not feel sick. He denies any fever or chills. He denies any nausea or vomiting. He does not endorse any chest pain or radiating pain. He has no abdominal pain. He has no changes to bowel movements urination. He has no focal deficits.He is noted to have Na 133, Cr 1.49 and renal has been consulted for KILO. Constitutional: no complaints Eyes: no complaints ENT: no complaints Respiratory: shortness of breath Cardiovascular: no complaints Gastrointestinal: no complaints Genitourinary: no complaints Musculoskeletal: no complaints Past Medical History Medical History: hypertension, hypothyroid, other (COPD, asthma, ascites ) Past Surgical History Past Surgical Hx: no surgical history Family History Significant Family History: no pertinent family hx, asthma Social History Alcohol Use: none Smoking Status: Never smoker Drug Use: none Exam/Review of Systems Vital Signs Vitals Vital Signs Date Time Temp Pulse Resp B/P Pulse Ox O2 Delivery O2 Flow Rate FiO2 11/29/16 21:42 89 20 166/96 94 Room Air 11/29/16 19:20 98.3 11/29/16 14:04 21 Exam Constitutional: alert, oriented Psych: no complaints Head: atraumatic, normocephalic Eyes: EOMI, nl conjunctiva ENMT: mucosa pink and moist, nl external ears & nose, nl lips & teeth, nl nasal mucosa & septum Neck: non-tender, supple Respiratory: clear to auscultation, normal air movement Cardiovascular: nl pulses, regular rate and rhythm Gastrointestinal: nl liver, spleen, non-tender, soft Musculoskeletal: nl extremities to inspection Extremities: normal pulses Neurological: CRYSTAL MACHINING COORDINATOR II-XII intact, nl mental status, nl speech, nl strength Skin: nl turgor, rash or lesions Lymph: nl lymph nodes Results Result Diagram: 11/29/16 1315 11/29/16 1315 Results 24 hrs Laboratory Tests Test 11/29/16 13:15 11/29/16 22:00 White Blood Count 7.8 Red Blood Count 3.66 L Hemoglobin 11.8 L Hematocrit 33.1 L Mean Corpuscular Volume 90.4 Mean Corpuscular Hemoglobin 32.2 Mean Corpuscular Hemoglobin Concent 35.6 Red Cell Distribution Width 12.4 Platelet Count 140 Mean Platelet Volume 11.0 H Neutrophils % Segmented Neutrophils % (Manual) 51 Lymphocytes % Lymphocytes % (Manual) 21 Monocytes % Monocytes % (Manual) 5 Eosinophils % Eosinophils % (Manual) 23 H Basophils % Nucleated Red Blood Cells % 0.0 Neutrophils # (Manual) Absolute Lymphocytes (Manual) 1.6 Lymphocytes # Monocytes # Absolute Monocytes (Manual) 0.3 Eosinophils # Basophils # Nucleated Red Blood Cells # Platelet Estimate NORMAL Prothrombin Time 12.8 Prothrombin Time Ratio 1.0 INR International Normalized Ratio 0.96 Activated Partial Thromboplast Time 28.6 Sodium Level 133 L Potassium Level 5.1 Chloride Level 99 Carbon Dioxide Level 24 Anion Gap 15 Blood Urea Nitrogen 17 Creatinine 1.49 H Glucose Level 101 Calcium Level 9.1 Troponin I < 0.012 Triglycerides Level 83 Cholesterol Level 146 LDL Cholesterol, Calculated 86 HDL Cholesterol 43 Cholesterol/HDL Ratio 3.3 Free Thyroxine 1.09 Medications Medications Current Medications Aspirin (Halfprin) 81 mg DAILY PO ; Start 11/30/16 at 09:00 Lisinopril (Zestril) 5 mg DAILY PO ; Start 11/30/16 at 09:00 Montelukast Sodium (Singulair) 10 mg QHS PO ; Start 11/30/16 at 21:00 Naproxen (Naprosyn) 250 mg BID PO ; Start 11/30/16 at 09:00 Pantoprazole (Protonix Tab) 40 mg DAILY@06 PO ; Start 11/30/16 at 06:00 Hydralazine HCl (Apresoline) 10 mg Q6 PRN IV ELEVATED BLOOD PRESSURE; Start at 21:30 Enoxaparin Sodium (Lovenox) 30 mg DAILY SC ; Start 11/30/16 at 09:00 ARIANE CHRIS MD Nov 29, 2016 23:02
[2016-11-29 23:42] VITALS: TEMP 98.2
[2016-11-29 23:49] VITALS: BP 194/84; RESP 18
[2016-11-29] MEDS: hydrALAzine 20 MG INJ IV PRN (23:58)
[2016-11-30] VITALS (7 sets, daily range): BP systolic 133–184; BP diastolic 72–99; PULSE 99–105; RESP 16–20; Ht 172.7 cm; Wt 97.6 kg
[2016-11-30] MEDS ORDERED: ALBUTEROL 18 GM INHALER INH ONE
[2016-11-30] MEDS: ALBUTEROL/IPRATROPIUM (NEB) 3 ML AMP HHN SCH ×4 (00:23→19:41)
[2016-11-30] MEDS: ALBUTEROL/IPRATROPIUM (NEB) 3 ML AMP HHN PRN (05:04)
[2016-11-30] MEDS ORDERED: NITROGLYCERIN 2% 1 GM OINT PKT TD SCH ×3 (06:00→09:00)
[2016-11-30] MEDS: PANTOPRAZOLE (EC) 40 MG TAB PO SCH (06:18)
[2016-11-30] MEDS: LEVOTHYROXINE 50 MCG TAB PO SCH (06:18)
[2016-11-30] MEDS: ACETAMINOPHEN 325 MG TAB PO PRN (06:51)
[2016-11-30] MEDS ORDERED: ACETAMINOPHEN 325 MG TAB PO PRN (07:00)
[2016-11-30] MEDS: ASPIRIN (EC) 81 MG TAB PO SCH (08:47)
[2016-11-30] MEDS: NAPROXEN 250 MG TAB PO SCH ×2 (08:47→21:24)
[2016-11-30] MEDS: hydrALAzine 20 MG INJ IV PRN (08:49)
[2016-11-30] MEDS: ENOXAPARIN 30 MG/0.3 ML SYG SC SCH (08:54)
[2016-11-30] MEDS ORDERED: LISINOPRIL 5 MG TAB PO SCH (09:00)
[2016-11-30] MEDS ORDERED: PROVENTIL HFA 6.7GM INHALER INH SCH (09:00)
[2016-11-30 10:24] LABS: BASOPHILS % 0.1 % (0.0-2.0); HEMOGLOBIN 11.7 g/dl (14.0-18.0); LYMPHOCYTES # 0.8 10^3/ul (0.8-2.9); MEAN CORPUSCULAR HEMOGLOBIN 31.9 pg (29.0-33.0); MEAN CORPUSCULAR HGB CONC 35.5 g/dl (32.0-37.0); MEAN CORPUSCULAR VOLUME 89.9 fl (82.0-101.0); MEAN PLATELET VOLUME 11.3 fl (7.4-10.4); MONOCYTE # 0.8 10^3/ul (0.3-0.9); MONOCYTES % 5.5 % (0.0-11.0); NEUTROPHILS % 88.8 % (39.0-77.0); PLATELET COUNT 157 10^3/UL (140-415); RED BLOOD COUNT 3.67 10^6/ul (4.70-6.10); RED CELL DISTRIBUTION WIDTH 12.5 % (11.5-14.5)
[2016-11-30 10:44] LABS: CHOL/HDL RATIO 2.9 RATIO
[2016-11-30 10:47] LABS: CALCIUM 9.4 mg/dl (8.4-10.2); CREATININE 1.55 mg/dl (0.61-1.24); POTASSIUM 5.9 mmol/L (3.5-5.1)
[2016-11-30] MEDS ORDERED: NA POLYST SULFON 15 GM/60 ML BTL PO ONE (11:30)
--- NOTE | 2016-11-30 11:51 | PN ---
Date/Time of Note Date/Time of Note DATE: 11/30/16 TIME: 11:44 Assessment/Plan VTE Prophylaxis VTE Prophylaxis Intervention: SCD's Assessment/Plan Chief Complaint/Hosp Course Patient denies any chest pain, shortness of breath, continues on supplemental oxygen. Problems: Assessment/Plan - COPD with acute exacerbation, tinea breathing treatment steroids and oxygen supplementation. - Acute tracheobronchitis, start Levaquin - Rule out acute coronary syndrome. Dr. Vazquez is following in cardiology consultation. -Acute kidney injury. Dr. Bernstein is following in nephrology consultation. - Hyperkalemia, will give Kayexalate, continue to monitor electrolytes - Hypertension - Hypothyroidism, TSH is within normal limits continue current dose of Synthroid Further recommendations based on clinical course. Plan of care discussed with Dr. Mcallister. Exam/Review of Systems Vital Signs Vitals Vital Signs Date Time Temp Pulse Resp B/P Pulse Ox O2 Delivery O2 Flow Rate FiO2 11/30/16 07:57 98.3 77 20 169/76 95 11/30/16 07:54 21 11/29/16 23:42 Room Air Intake and Output 11/29/16 11/29/16 11/30/16 15:00 23:00 07:00 Intake Total 440 ml Output Total 1400 ml Balance -960 ml Exam Constitutional: alert, oriented Head: normocephalic Neck: supple Respiratory: normal air movement Cardiovascular: nl pulses Gastrointestinal: soft Extremities: edema, normal pulses Results Result Diagram: 11/30/16 1002 11/30/16 1002 Results 24 hrs Laboratory Tests Test 11/29/16 13:15 11/29/16 22:00 11/30/16 10:02 White Blood Count 7.8 15.0 #H Red Blood Count 3.66 L 3.67 L Hemoglobin 11.8 L 11.7 L Hematocrit 33.1 L 33.0 L Mean Corpuscular Volume 90.4 89.9 Mean Corpuscular Hemoglobin 32.2 31.9 Mean Corpuscular Hemoglobin Concent 35.6 35.5 Red Cell Distribution Width 12.4 12.5 Platelet Count 140 157 Mean Platelet Volume 11.0 H 11.3 H Neutrophils % 88.8 H Segmented Neutrophils % (Manual) 51 Lymphocytes % 5.0 L Lymphocytes % (Manual) 21 Monocytes % 5.5 Monocytes % (Manual) 5 Eosinophils % 0.0 Eosinophils % (Manual) 23 H Basophils % 0.1 Nucleated Red Blood Cells % 0.0 0.0 Neutrophils # (Manual) 13.3 H Absolute Lymphocytes (Manual) 1.6 Lymphocytes # 0.8 Monocytes # 0.8 Absolute Monocytes (Manual) 0.3 Eosinophils # 0.0 Basophils # 0.0 Nucleated Red Blood Cells # 0.0 Platelet Estimate NORMAL Prothrombin Time 12.8 Prothrombin Time Ratio 1.0 INR International Normalized Ratio 0.96 Activated Partial Thromboplast Time 28.6 Sodium Level 133 L 136 Potassium Level 5.1 5.9 H Chloride Level 99 99 Carbon Dioxide Level 24 21 Anion Gap 15 22 #H Blood Urea Nitrogen 17 24 H Creatinine 1.49 H 1.55 H Glucose Level 101 147 # Calcium Level 9.1 9.4 Troponin I < 0.012 Triglycerides Level 83 57 Cholesterol Level 146 155 LDL Cholesterol, Calculated 86 91 HDL Cholesterol 43 53 # Cholesterol/HDL Ratio 3.3 2.9 Free Thyroxine 1.09 Thyroid Stimulating Hormone (TSH) 1.040 Medications Medications Current Medications Aspirin (Halfprin) 81 mg DAILY PO Last administered on 11/30/16 08:47; Admin Dose 81 MG; Start 11/30/16 at 09:00 Montelukast Sodium (Singulair) 10 mg QHS PO ; Start 11/30/16 at 21:00 Naproxen (Naprosyn) 250 mg BID PO Last administered on 11/30/16 08:47; Admin Dose 250 MG; Start 11/30/16 at 09:00 Pantoprazole (Protonix Tab) 40 mg DAILY@06 PO Last administered on 11/30/16 06 :18; Admin Dose 40 MG; Start 11/30/16 at 06:00 Hydralazine HCl (Apresoline) 10 mg Q6 PRN IV ELEVATED BLOOD PRESSURE Last administered on 11/30/16 08:49; Admin Dose 10 MG; Start 11/29/16 at 21:30 Enoxaparin Sodium (Lovenox) 30 mg DAILY SC Last administered on 11/30/16 08:54 ; Admin Dose 30 MG; Start 11/30/16 at 09:00 Nitroglycerin (Nitroglycerin 2% Oint) 1 inch Q8 TD Last administered on 08:50; Admin Dose 1 INCH; Start 11/30/16 at 09:00 Acetaminophen (Tylenol Tab) 650 mg Q4H PRN PO PAIN AND OR ELEVATED TEMP Last administered on 11/30/16 06:51; Admin Dose 650 MG; Start 11/30/16 at 06:47 Methylprednisolone Sodium Succinate (Solu-Medrol) 20 mg Q6 IV ; Start 11/30/16 at 12:00 MARTI RINALDI Nov 30, 2016 11:51
[2016-11-30] MEDS: METHYLPREDNISOLONE 40 MG INJ IV SCH ×3 (12:10→23:13)
--- NOTE | 2016-11-30 12:50 | CONS ---
Date/Time of Note Date/Time of Note DATE: 11/30/16 TIME: 12:46 Assessment/Plan Assessment/Plan Chief Complaint/Hosp Course Assessment 1. Acute tracheobronchitis 2. Hypoxemic respiratory distress 3. History of hypothyroidism 4. Mild renal insufficiency Plan 1. Continue bronchodilators 2. Continue steroid taper 3. Continue to encourage out of bed 4. Consider initiation antibiotics if respiratory status or white count deteriorate Problems: Consultation Date/Type/Reason Admit Date/Time 11/29/2016 Date of Consultation: Nov 30, 2016 Reason for Consultation SOB Hx of Present Illness 86-year-old gentleman with history of hypertension hyperlipidemia COPD comes in with several day history of increasing cough congestion and increased sputum production. No fever no chills no chest pain or palpitations no orthopnea or PND. On auscultation found to have bilateral expiratory wheezing. Denies any recent travel history no sick contacts. Initial chest x-ray was unremarkable. As above. Constitutional: no complaints Eyes: no complaints ENT: no complaints Respiratory: shortness of breath Cardiovascular: no complaints Gastrointestinal: no complaints Genitourinary: no complaints Musculoskeletal: no complaints Psychological: no complaints Past Medical History As above. Medical History: hypertension, hypothyroid, other (COPD, asthma, ascites ) Past Surgical History Past Surgical Hx: no surgical history Social History Alcohol Use: none Smoking Status: Never smoker Drug Use: none Exam/Review of Systems Vital Signs Vitals Vital Signs Date Time Temp Pulse Resp B/P Pulse Ox O2 Delivery O2 Flow Rate FiO2 11/30/16 07:57 98.3 77 20 169/76 95 11/30/16 07:54 21 11/29/16 23:42 Room Air Intake and Output 11/29/16 11/29/16 11/30/16 15:00 23:00 07:00 Intake Total 440 ml Output Total 1400 ml Balance -960 ml Exam GENERAL: Elderly gentleman comfortable at rest no acute distress VITAL SIGNS: per chart NECK: Supple. No JVD or lymphadenopathy. CARDIAC EXAM: S1, S2. No added sounds or murmurs. CHEST: Bilateral expiratory wheezing. ABDOMEN: Soft, nontender. No guarding or rebound. EXTREMITIES: No cyanosis, clubbing or edema. NEUROLOGIC: Generalized weakness. No focal deficits. Results Chest x-ray no infiltrates or effusions Result Diagram: 11/30/16 1002 11/30/16 1002 Results 24 hrs Laboratory Tests Test 11/29/16 13:15 11/29/16 22:00 11/30/16 10:02 White Blood Count 7.8 15.0 #H Red Blood Count 3.66 L 3.67 L Hemoglobin 11.8 L 11.7 L Hematocrit 33.1 L 33.0 L Mean Corpuscular Volume 90.4 89.9 Mean Corpuscular Hemoglobin 32.2 31.9 Mean Corpuscular Hemoglobin Concent 35.6 35.5 Red Cell Distribution Width 12.4 12.5 Platelet Count 140 157 Mean Platelet Volume 11.0 H 11.3 H Neutrophils % 88.8 H Segmented Neutrophils % (Manual) 51 Lymphocytes % 5.0 L Lymphocytes % (Manual) 21 Monocytes % 5.5 Monocytes % (Manual) 5 Eosinophils % 0.0 Eosinophils % (Manual) 23 H Basophils % 0.1 Nucleated Red Blood Cells % 0.0 0.0 Neutrophils # (Manual) 13.3 H Absolute Lymphocytes (Manual) 1.6 Lymphocytes # 0.8 Monocytes # 0.8 Absolute Monocytes (Manual) 0.3 Eosinophils # 0.0 Basophils # 0.0 Nucleated Red Blood Cells # 0.0 Platelet Estimate NORMAL Prothrombin Time 12.8 Prothrombin Time Ratio 1.0 INR International Normalized Ratio 0.96 Activated Partial Thromboplast Time 28.6 Sodium Level 133 L 136 Potassium Level 5.1 5.9 H Chloride Level 99 99 Carbon Dioxide Level 24 21 Anion Gap 15 22 #H Blood Urea Nitrogen 17 24 H Creatinine 1.49 H 1.55 H Glucose Level 101 147 # Calcium Level 9.1 9.4 Troponin I < 0.012 Triglycerides Level 83 57 Cholesterol Level 146 155 LDL Cholesterol, Calculated 86 91 HDL Cholesterol 43 53 # Cholesterol/HDL Ratio 3.3 2.9 Free Thyroxine 1.09 Thyroid Stimulating Hormone (TSH) 1.040 Medications Medications Current Medications Aspirin (Halfprin) 81 mg DAILY PO Last administered on 11/30/16 08:47; Admin Dose 81 MG; Start 11/30/16 at 09:00 Montelukast Sodium (Singulair) 10 mg QHS PO ; Start 11/30/16 at 21:00 Naproxen (Naprosyn) 250 mg BID PO Last administered on 11/30/16 08:47; Admin Dose 250 MG; Start 11/30/16 at 09:00 Pantoprazole (Protonix Tab) 40 mg DAILY@06 PO Last administered on 11/30/16 06 :18; Admin Dose 40 MG; Start 11/30/16 at 06:00 Hydralazine HCl (Apresoline) 10 mg Q6 PRN IV ELEVATED BLOOD PRESSURE Last administered on 11/30/16 08:49; Admin Dose 10 MG; Start 11/29/16 at 21:30 Enoxaparin Sodium (Lovenox) 30 mg DAILY SC Last administered on 11/30/16 08:54 ; Admin Dose 30 MG; Start 11/30/16 at 09:00 Nitroglycerin (Nitroglycerin 2% Oint) 1 inch Q8 TD Last administered on 08:50; Admin Dose 1 INCH; Start 11/30/16 at 09:00 Acetaminophen (Tylenol Tab) 650 mg Q4H PRN PO PAIN AND OR ELEVATED TEMP Last administered on 11/30/16 06:51; Admin Dose 650 MG; Start 11/30/16 at 06:47 Methylprednisolone Sodium Succinate (Solu-Medrol) 20 mg Q6 IV Last administered on 11/30/16 12:10; Admin Dose 20 MG; Start 11/30/16 at 12:00 ISABEL DONG MD, [facility] Nov 30, 2016 12:50
--- NOTE | 2016-11-30 13:20 | RADRPT ---
Echocardiogram Report Patient Name: KEM CARLOS Gender: Male Date: 1930 Study Date: 30-Nov-2016 Manager [employer]: [facility] Location: [id number] Ref. Physician: MELVIN MARROQUIN Quality: Adequate Procedures: Transthoracic echocardiogram with complete 2D, M-Mode, and doppler examination. Indications: Tachy/PVC`s/SOB. 2D/M Mode Doppler Measurement Value Normal Ranges Measurement Value Normal Ranges LVIDd 2D 5.3 3.5 - 5.6 cm LVOT Peak [place] 1.3 m/sec LVIDs 2D 3.5 2.1 - 4.1 cm LVOT Peak PG 7.0 mmHg FS 2D 33.3 % MV E Peak [place] 1.5 m/sec LVPWd 2D 1.5 0.6 - 1.1 cm MV Decel Time 183 msec IVSd 2D 1.5 0.6 - 1.1 cm TR Peak Augustine 3.6 m/sec IVS/LVPW 2D 1.0 TR Peak PG 52.0 mmHg AoR Diam 2D 2.3 2.0 - 3.7 cm LA/Ao 2D 2 0 - 1 EDV 2D 145.0 cm3 ESV 2D 42.9 cm3 LA Dimen 2D 3.9 2.3 - 4.0 cm Findings Left Ventricle: Lower limits of normal systolic function. Moderate concentric left ventricular hypertrophy. Ejection fraction is visually estimated at 5055 %. Abnormal Diastolic Function. Right Ventricle: Normal right ventricular size. Normal right ventricular systolic function. Left Atrium: The left atrium is normal in size. Right Atrium: The right atrium is normal in size. Mitral Valve: Mild mitral leaflet calcification. Mild mitral annular calcification. Trace mitral regurgitation. Aortic Valve: Normal appearance of the aortic valve. No significant aortic stenosis or insufficiency. Tricuspid Valve: Normal appearance of the tricuspid valve. Estimated peak PA systolic pressure 52 mmHg. There is mild tricuspid regurgitation. Pericardium: Normal pericardium with no significant pericardial effusion. Aorta: Normal aortic root. IVC: Normal size and poor respiratory collapse consistent with elevated right atrial pressure. Conclusions 1.Lower limits of normal systolic function. Moderate concentric left ventricular hypertrophy. Ejection fraction is visually estimated at 50-55 %. Abnormal Diastolic Function. 2.Normal right ventricular size. Normal right ventricular systolic function. 3.Mild mitral leaflet calcification. Mild mitral annular calcification. Trace mitral regurgitation. 4.Normal appearance of the tricuspid valve. Estimated peak PA systolic pressure 52 mmHg. There is mild tricuspid regurgitation. Electronically Signed By: Rudy Vazquez 30-Nov-2016 13:19:51 -0700 Patient Name: KEM CARLOS Study Date: 30-Nov-2016 [id number]
[2016-11-30] MEDS: METOPROLOL 25 MG TAB PO SCH ×2 (14:38→21:24)
[2016-11-30] MEDS: ISOSORBIDE DINITRATE 10 MG TAB PO SCH ×2 (15:10→21:25)
--- NOTE | 2016-11-30 18:06 | CONS ---
Date/Time of Note Date/Time of Note DATE: 11/30/16 TIME: 18:05 Assessment/Plan Assessment/Plan Chief Complaint/Hosp Course 86-year-old male with a past medical history of hypertension, hypothyroidism, significant COPD with previous exacerbations who is presenting with 2 days of worsening cough with productive white yellow sputum, progressive worsening wheezes, shortness of breath and fatigue. The patient does not feel sick. He denies any fever or chills. He denies any nausea or vomiting. He does not endorse any chest pain or radiating pain. He has no abdominal pain. He has no changes to bowel movements urination. He has no focal deficits.He is noted to have Na 133, Cr 1.49 and renal has been consulted for KILO. Problems: Additional Assessment/Plan 1. acute kidney injury due to prerenal azotemia 2. Hyponatremia due to hypovolemic hyponatremia 3. acute COPD exacerbation 4. HTN 5. Hypothyroidism Plan: IV levaquin IV solumedrol Cr went up, K high, stop Lisinopril, kayexalate has been given BP stable will follow up Consultation Date/Type/Reason Admit Date/Time Nov 29, 2016 at 17:53 Initial Consult Date 11/30/16 Type of Consultation: NEPHROLOGY Referring Provider: JONAS CALDERON MD 24 HR Interval Summary Free Text/Dictation Cr went up, K high Exam/Review of Systems Vital Signs Vitals Vital Signs Date Time Temp Pulse Resp B/P Pulse Ox O2 Delivery O2 Flow Rate FiO2 11/30/16 14:14 98.2 100 19 154/99 94 11/30/16 13:12 21 11/29/16 23:42 Room Air Intake and Output 11/29/16 11/29/16 11/30/16 15:00 23:00 07:00 Intake Total 440 ml Output Total 1400 ml Balance -960 ml Results Result Diagram: 11/30/16 1002 11/30/16 1002 Results 24 hrs Laboratory Tests Test 11/29/16 22:00 11/30/16 10:02 Triglycerides Level 83 57 Cholesterol Level 146 155 LDL Cholesterol, Calculated 86 91 HDL Cholesterol 43 53 # Cholesterol/HDL Ratio 3.3 2.9 Free Thyroxine 1.09 White Blood Count 15.0 #H Red Blood Count 3.67 L Hemoglobin 11.7 L Hematocrit 33.0 L Mean Corpuscular Volume 89.9 Mean Corpuscular Hemoglobin 31.9 Mean Corpuscular Hemoglobin Concent 35.5 Red Cell Distribution Width 12.5 Platelet Count 157 Mean Platelet Volume 11.3 H Neutrophils % 88.8 H Lymphocytes % 5.0 L Monocytes % 5.5 Eosinophils % 0.0 Basophils % 0.1 Nucleated Red Blood Cells % 0.0 Neutrophils # (Manual) 13.3 H Lymphocytes # 0.8 Monocytes # 0.8 Eosinophils # 0.0 Basophils # 0.0 Nucleated Red Blood Cells # 0.0 Sodium Level 136 Potassium Level 5.9 H Chloride Level 99 Carbon Dioxide Level 21 Anion Gap 22 #H Blood Urea Nitrogen 24 H Creatinine 1.55 H Glucose Level 147 # Calcium Level 9.4 Thyroid Stimulating Hormone (TSH) 1.040 Medications Medications Current Medications Aspirin (Halfprin) 81 mg DAILY PO Last administered on 11/30/16 08:47; Admin Dose 81 MG; Start 11/30/16 at 09:00 Montelukast Sodium (Singulair) 10 mg QHS PO ; Start 11/30/16 at 21:00 Naproxen (Naprosyn) 250 mg BID PO Last administered on 11/30/16 08:47; Admin Dose 250 MG; Start 11/30/16 at 09:00 Pantoprazole (Protonix Tab) 40 mg DAILY@06 PO Last administered on 11/30/16 06 :18; Admin Dose 40 MG; Start 11/30/16 at 06:00 Hydralazine HCl (Apresoline) 10 mg Q6 PRN IV ELEVATED BLOOD PRESSURE Last administered on 11/30/16 08:49; Admin Dose 10 MG; Start 11/29/16 at 21:30 Enoxaparin Sodium (Lovenox) 30 mg DAILY SC Last administered on 11/30/16 08:54 ; Admin Dose 30 MG; Start 11/30/16 at 09:00 Acetaminophen (Tylenol Tab) 650 mg Q4H PRN PO PAIN AND OR ELEVATED TEMP Last administered on 11/30/16 06:51; Admin Dose 650 MG; Start 11/30/16 at 06:47 Methylprednisolone Sodium Succinate (Solu-Medrol) 20 mg Q6 IV Last administered on 11/30/16 12:10; Admin Dose 20 MG; Start 11/30/16 at 12:00 Hydralazine HCl (Apresoline) 25 mg Q8 PO Last administered on 11/30/16 14:38; Admin Dose 25 MG; Start 11/30/16 at 14:00 Metoprolol Tartrate (Lopressor) 25 mg BID PO Last administered on 11/30/16 14: 38; Admin Dose 25 MG; Start 11/30/16 at 13:00 Isosorbide Dinitrate (Isordil) 10 mg TID PO Last administered on 11/30/16 15: 10; Admin Dose 10 MG; Start 11/30/16 at 14:00 ARIANE CHRIS MD Nov 30, 2016 18:06
[2016-11-30 19:37] LABS: TROPONIN-I 0.045 ng/ml (0.00-0.12)
[2016-11-30 19:38] LABS: CK-MB 6.45 ng/ml (0.0-2.4)
[2016-11-30] MEDS: MONTELUKAST 10 MG TAB PO SCH (21:24)
[2016-11-30] MEDS: LEVOFLOXACIN 250MG/D5W (PMX) 50 ML IVPB SCH (21:54)
--- NOTE | 2016-11-30 22:37 | CONS ---
DATE OF ADMISSION: 11/29/2016 DATE OF CONSULTATION: 11/30/2016 REASON FOR CONSULTATION: Hypertension, tachycardia, abnormal electrocardiogram. REFERRING PHYSICIAN: Brayden Mcallister MD HISTORY OF PRESENT ILLNESS: Mr. Cano is an 86-year-old male with history of hypertension, hypothyroidism, COPD, who initially presented with complaints of shortness of breath, cough, generalized fatigue, ongoing for approximately 2 days prior to admit. Upon arrival, temperature 98.2, blood pressure markedly elevated at 204/80, pulse 69, respiratory rate 28, satting 96 percent. Patient's labs revealed a white cell count of 7.8, hemoglobin 0.8, platelet count of 140. Sodium 133, potassium 5.1, creatinine of 1.49, BUN 17. Troponin negative. TSH of 1.040. LDL 86, HDL 43. INR 0.96. Patient underwent a chest x-ray, revealing atherosclerosis, otherwise normal chest radiograph, clear lungs. Patient's electrocardiogram revealed sinus rhythm at 65 with a normal axis, left ventricular hypertrophy voltage criteria and PAC, anteroseptal Q's. Patient subsequently admitted to the floor and since admit to the floor, has had some elevated systolic blood pressure as high as 160s to 170s. Patient has chest pain with cough only. PAST MEDICAL HISTORY: As above in HPI. MEDICATION: Currently in hospital: 1. Singulair. 2. Solu-Medrol 20 mg IV q.6. 3. Aspirin 81 mg daily. 4. Lovenox 30 mg subcu daily. 5. Nitropaste 1 inch q.8. 6. Synthroid 50 mcg daily. 7. Tylenol p.r.n. 8. Protonix p.r.n. 9. Duoneb p.r.n. 10. Hydralazine. ALLERGIES: NO KNOWN DRUG ALLERGIES. SOCIAL HISTORY: No tobacco, EtOH or illicit drug use. FAMILY HISTORY: No history of sudden cardiac or early CAD. REVIEW OF SYSTEMS: As above in HPI. CONSTITUTIONAL: No fevers, chills. RESPIRATORY: Shortness of breath. CARDIOVASCULAR: Chest pain with cough. GASTROINTESTINAL: No vomiting. GENITOURINARY: No hematuria. MUSCULOSKELETAL: Degenerative joint disease. PSYCHIATRIC: Patient denies depression. NEUROLOGIC: No documented CVA. ENDOCRINE: No documented diabetes mellitus. PHYSICAL EXAMINATION: VITAL SIGNS: Temperature 98.3, blood pressure most recently 169/76, pulse 77, respiratory rate 20, satting 95 percent. GENERAL: The patient is alert, awake, complaining of cough, shortness of breath. NECK: JVP approximately 8-9 cm of water. LUNGS: Fair air movement throughout. HEART: Regular rate and rhythm. Normal S1, S2. A 1/6 systolic murmur. Nondisplaced PMI. ABDOMEN: Positive bowel sounds. Soft. EXTREMITIES: No edema, 1+ pulses. Bilateral posterior tibials. LABORATORY: As above in HPI, with most recent from today, sodium 136, potassium 5.9, creatinine 1.55, BUN 24. TSH 1.040. White blood cell count 15, hemoglobin 11.7, platelet count of 157. INR 0.96. IMAGING STUDIES: As above in HPI. No further imaging studies are reviewed. Findings from ECG: As above in HPI. No further electrocardiogram has been reviewed at this time. IMPRESSION: 1. Chest pain. Assess for acute coronary syndrome, at this time only with cough. 2. Abnormal electrocardiogram, with anteroseptal Q's. Assess for acute coronary syndrome. 3. Hypertension, uncontrolled. 4. Chronic obstructive pulmonary disease exacerbation. 5. Shortness of breath. 6. Renal failure. 7. Anemia. 8. Leukocytosis. RECOMMENDATIONS: 1. At this time, would check serial EKGs to assess for changes including myocardial infarction, although the patient's chest pain is somewhat atypical, along with cough. 2. Continue the patient's aspirin for prophylaxis of cardiac events. 3. Will initiate patient on hydralazine p.o. to improve overall systolic blood pressure control. Given renal failure, risk of calcium channel chandler and will give patient beta chandler for heart rate control and additional blood pressure control, beta-1 selective, so as not to exacerbate any possible bronchospasm. 4. Continue the patient's current steroids/bronchodilators and will change the patient's Nitropaste to oral nitrates. Thank you for allowing me to take part in the care of this patient. I will continue to follow him very closely with you. follow his clinical course. Dictated By: Mahad Hammer /bjorn/mary /Document#: [id number] CC: Brayden Mcallister MD;*EndCC*
[2016-12-01] VITALS (7 sets, daily range): BP systolic 140–187; BP diastolic 65–79; PULSE 98–100; RESP 18–19
[2016-12-01] MEDS: METHYLPREDNISOLONE 40 MG INJ IV SCH ×4 (00:27→22:06)
[2016-12-01] MEDS: ALBUTEROL/IPRATROPIUM (NEB) 3 ML AMP HHN SCH ×4 (01:02→19:45)
[2016-12-01 01:34] LABS: TROPONIN-I 0.048 ng/ml (0.00-0.12)
[2016-12-01 01:38] LABS: CK-MB 6.55 ng/ml (0.0-2.4)
[2016-12-01] MEDS: PANTOPRAZOLE (EC) 40 MG TAB PO SCH (06:04)
[2016-12-01] MEDS: LEVOTHYROXINE 50 MCG TAB PO SCH (06:04)
[2016-12-01 06:14] LABS: ABNORMAL IP MESSAGE 1; HEMATOCRIT 29.7 % (42.0-52.0); HEMOGLOBIN 10.3 g/dl (14.0-18.0); LYMPHOCYTES # 0.6 10^3/ul (0.8-2.9); LYMPHOCYTES % 7.1 % (15.0-51.0); MEAN CORPUSCULAR HEMOGLOBIN 31.4 pg (29.0-33.0); MEAN CORPUSCULAR HGB CONC 34.7 g/dl (32.0-37.0); MEAN CORPUSCULAR VOLUME 90.5 fl (82.0-101.0); MEAN PLATELET VOLUME 11.8 fl (7.4-10.4); MONOCYTE # 0.1 10^3/ul (0.3-0.9); MONOCYTES % 1.7 % (0.0-11.0); PLATELET COUNT 140 10^3/UL (140-415); POSITIVE DIFF @See below; RED BLOOD COUNT 3.28 10^6/ul (4.70-6.10); RED CELL DISTRIBUTION WIDTH 12.8 % (11.5-14.5); WHITE BLOOD COUNT 8.3 10^3/ul (4.8-10.8)
[2016-12-01 06:55] LABS: CALCIUM 8.6 mg/dl (8.4-10.2); CREATININE 1.68 mg/dl (0.61-1.24); POTASSIUM 5.1 mmol/L (3.5-5.1)
[2016-12-01] MEDS: NAPROXEN 250 MG TAB PO SCH ×2 (08:07→20:49)
[2016-12-01] MEDS: ASPIRIN (EC) 81 MG TAB PO SCH (08:08)
[2016-12-01] MEDS: ENOXAPARIN 30 MG/0.3 ML SYG SC SCH (08:12)
[2016-12-01] MEDS: METOPROLOL 25 MG TAB PO SCH ×2 (08:17→20:50)
[2016-12-01] MEDS: ISOSORBIDE DINITRATE 10 MG TAB PO SCH ×3 (08:21→20:50)
--- NOTE | 2016-12-01 09:24 | CONS ---
Date/Time of Note Date/Time of Note DATE: 12/01/16 TIME: 09:22 Assessment/Plan Assessment/Plan Additional Assessment/Plan 1. Chest pain. Assess for acute coronary syndrome, at this time only with cough. R/O FL - doubt acute ischemia. 2. Abnormal electrocardiogram, with anteroseptal Q's. Assess for acute coronary syndrome. Will monitor clinically. 3. Hypertension, uncontrolled- will add additional agents now, 4. Chronic obstructive pulmonary disease exacerbation - con't RX - improved breathing. 5. Shortness of breath- COPD likely. 6. Renal failure- avoid nephrotoxic meds. 7. Anemia. 8. Leukocytosis. Consultation Date/Type/Reason Admit Date/Time Nov 29, 2016 at 17:53 Initial Consult Date 11/30/16 Type of Consultation: NEPHROLOGY Referring Provider: JONAS CALDERON MD 24 HR Interval Summary Free Text/Dictation NO acute events - improved SOB. BP high - flores ad RX. ROS: No fever, no chills, no nausea, no vomiting, no diarrhea/constipation No recent weight changes No chest pain, no PND, no orthopnea BETTER SOB No dizziness, blurred vision No thirst, no heat or cold intolerance Exam/Review of Systems Vital Signs Vitals Vital Signs Date Time Temp Pulse Resp B/P Pulse Ox O2 Delivery O2 Flow Rate FiO2 12/01/16 08:11 69 20 95 21 12/01/16 07:20 98.0 187/76 11/29/16 23:42 Room Air Intake and Output 11/30/16 11/30/16 12/01/16 15:00 23:00 07:00 Intake Total 2050 ml 480 ml Output Total 200 ml Balance 1850 ml 480 ml Exam General: WN/WD/NAD, AOx 3 (Lao) HEENT: Unicetric/atraumatic/EOMI (follows commands) NECK: JVD elevated, no thyromegaly Lymph: no lymphadenopathy HEART: regular with no S3, II/ systolic murmur at apex LUNGS: Coarse sounds, occ Wheezing + ABD: soft, NT, ND, +BS : Intact Neuro: non focal SKIN: chronic changes EXT: trace edema Results Result Diagram: 12/01/1617 12/01/16516 Results 24 hrs Laboratory Tests Test 11/30/16 10:02 11/30/16 18:04 12/01/16 00:38 12/01/16 05:17 White Blood Count 15.0 #H 8.3 # Red Blood Count 3.67 L 3.28 L Hemoglobin 11.7 L 10.3 L Hematocrit 33.0 L 29.7 L Mean Corpuscular Volume 89.9 90.5 Mean Corpuscular Hemoglobin 31.9 31.4 Mean Corpuscular Hemoglobin Concent 35.5 34.7 Red Cell Distribution Width 12.5 12.8 Platelet Count 157 140 Mean Platelet Volume 11.3 H 11.8 H Neutrophils % 88.8 H 91.0 H Lymphocytes % 5.0 L 7.1 L Monocytes % 5.5 1.7 Eosinophils % 0.0 0.0 Basophils % 0.1 0.0 Nucleated Red Blood Cells % 0.0 0.0 Neutrophils # (Manual) 13.3 H 7.6 H Lymphocytes # 0.8 0.6 L Monocytes # 0.8 0.1 L Eosinophils # 0.0 0.0 Basophils # 0.0 0.0 Nucleated Red Blood Cells # 0.0 0.0 Sodium Level 136 134 L Potassium Level 5.9 H 5.1 Chloride Level 99 97 Carbon Dioxide Level 21 23 Anion Gap 22 #H 19 H Blood Urea Nitrogen 24 H 33 H Creatinine 1.55 H 1.68 H Glucose Level 147 # 141 Calcium Level 9.4 8.6 Triglycerides Level 57 80 Cholesterol Level 155 144 LDL Cholesterol, Calculated 91 80 HDL Cholesterol 53 # 48 Cholesterol/HDL Ratio 2.9 3.0 Thyroid Stimulating Hormone (TSH) 1.040 Creatine Kinase 249 H 267 H Creatine Kinase Index 2.6 2.5 Creatinine Kinase MB (Mass) 6.45 H 6.55 H Troponin I 0.045 0.048 Medications Medications Current Medications Aspirin (Halfprin) 81 mg DAILY PO Last administered on 12/01/16 08:08; Admin Dose 81 MG; Start 11/30/16 at 09:00 Montelukast Sodium (Singulair) 10 mg QHS PO Last administered on 11/30/16 21: 24; Admin Dose 10 MG; Start 11/30/16 at 21:00 Naproxen (Naprosyn) 250 mg BID PO Last administered on 12/01/16 08:07; Admin Dose 250 MG; Start 11/30/16 at 09:00 Pantoprazole (Protonix Tab) 40 mg DAILY@06 PO Last administered on 12/01/16 06 :04; Admin Dose 40 MG; Start 11/30/16 at 06:00 Hydralazine HCl (Apresoline) 10 mg Q6 PRN IV ELEVATED BLOOD PRESSURE Last administered on 11/30/16 08:49; Admin Dose 10 MG; Start 11/29/16 at 21:30 Enoxaparin Sodium (Lovenox) 30 mg DAILY SC Last administered on 12/01/16 08:12 ; Admin Dose 30 MG; Start 11/30/16 at 09:00 Acetaminophen (Tylenol Tab) 650 mg Q4H PRN PO PAIN AND OR ELEVATED TEMP Last administered on 11/30/16 06:51; Admin Dose 650 MG; Start 11/30/16 at 06:47 Methylprednisolone Sodium Succinate (Solu-Medrol) 20 mg Q6 IV Last administered on 12/01/16 06:04; Admin Dose 20 MG; Start 11/30/16 at 12:00 Hydralazine HCl (Apresoline) 25 mg Q8 PO Last administered on 12/01/16 06:05; Admin Dose 25 MG; Start 11/30/16 at 14:00 Metoprolol Tartrate (Lopressor) 25 mg BID PO Last administered on 12/01/16 08: 17; Admin Dose 25 MG; Start 11/30/16 at 13:00 Isosorbide Dinitrate 10 mg 10 mg TID PO Last administered on 12/01/16 08:21; Admin Dose 10 MG; Start 11/30/16 at 14:00 Levofloxacin/ Dextrose (Levaquin 250 Mg/ D5W 50 ml (Pmx)) 50 ml @ 50 mls/hr Q48H IVPB Last administered on 11/30/16 21:54; Admin Dose 50 MLS/HR; Start at 20:00 TINO HOOPER MD Dec 01, 2016 09:24
--- NOTE | 2016-12-01 10:38 | CONS ---
Date/Time of Note Date/Time of Note DATE: 12/01/16 TIME: 10:37 Consult Date/Type/Reason Admit Date/Time Nov 29, 2016 at 17:53 Initial Consult Date 11/30/16 Type of Consultation: Pulm Ordering Provider: JONAS CALDERON MD Subjective Better, less shortness of breath. Objective Vital Signs Date Time Temp Pulse Resp B/P Pulse Ox O2 Delivery O2 Flow Rate FiO2 12/01/16 08:11 69 20 95 21 12/01/16 07:20 98.0 187/76 11/29/16 23:42 Room Air Intake and Output 11/30/16 11/30/16 12/01/16 14:59 22:59 06:59 Intake Total 2050 ml 480 ml Output Total 200 ml Balance 1850 ml 480 ml Results/Medications Result Diagram: 12/01/1651612/01/16516 Results 24 hrs Laboratory Tests Test 11/30/16 18:04 12/01/16 00:38 12/01/16 05:17 Creatine Kinase 249 H 267 H Creatine Kinase Index 2.6 2.5 Creatinine Kinase MB (Mass) 6.45 H 6.55 H Troponin I 0.045 0.048 White Blood Count 8.3 # Red Blood Count 3.28 L Hemoglobin 10.3 L Hematocrit 29.7 L Mean Corpuscular Volume 90.5 Mean Corpuscular Hemoglobin 31.4 Mean Corpuscular Hemoglobin Concent 34.7 Red Cell Distribution Width 12.8 Platelet Count 140 Mean Platelet Volume 11.8 H Neutrophils % 91.0 H Lymphocytes % 7.1 L Monocytes % 1.7 Eosinophils % 0.0 Basophils % 0.0 Nucleated Red Blood Cells % 0.0 Neutrophils # (Manual) 7.6 H Lymphocytes # 0.6 L Monocytes # 0.1 L Eosinophils # 0.0 Basophils # 0.0 Nucleated Red Blood Cells # 0.0 Sodium Level 134 L Potassium Level 5.1 Chloride Level 97 Carbon Dioxide Level 23 Anion Gap 19 H Blood Urea Nitrogen 33 H Creatinine 1.68 H Glucose Level 141 Calcium Level 8.6 Triglycerides Level 80 Cholesterol Level 144 LDL Cholesterol, Calculated 80 HDL Cholesterol 48 Cholesterol/HDL Ratio 3.0 Medications Current Medications Aspirin (Halfprin) 81 mg DAILY PO Last administered on 12/01/16t 08:08; Admin Dose 81 MG; Start 11/30/16 at 09:00 Montelukast Sodium (Singulair) 10 mg QHS PO Last administered on 11/30/16 21: 24; Admin Dose 10 MG; Start 11/30/16 at 21:00 Naproxen (Naprosyn) 250 mg BID PO Last administered on 12/01/16 08:07; Admin Dose 250 MG; Start 11/30/16 at 09:00 Pantoprazole (Protonix Tab) 40 mg DAILY@06 PO Last administered on 12/01/16 06 :04; Admin Dose 40 MG; Start 11/30/16 at 06:00 Hydralazine HCl (Apresoline) 10 mg Q6 PRN IV ELEVATED BLOOD PRESSURE Last administered on 11/30/16 08:49; Admin Dose 10 MG; Start 11/29/16 at 21:30 Enoxaparin Sodium (Lovenox) 30 mg DAILY SC Last administered on 12/01/16 08:12 ; Admin Dose 30 MG; Start 11/30/16 at 09:00 Acetaminophen (Tylenol Tab) 650 mg Q4H PRN PO PAIN AND OR ELEVATED TEMP Last administered on 11/30/16 06:51; Admin Dose 650 MG; Start 11/30/16 at 06:47 Methylprednisolone Sodium Succinate (Solu-Medrol) 20 mg Q6 IV Last administered on 12/01/16 06:04; Admin Dose 20 MG; Start 11/30/16 at 12:00 Hydralazine HCl (Apresoline) 25 mg Q8 PO Last administered on 12/01/16 06:05; Admin Dose 25 MG; Start 11/30/16 at 14:00 Metoprolol Tartrate (Lopressor) 25 mg BID PO Last administered on 12/01/16 08: 17; Admin Dose 25 MG; Start 11/30/16 at 13:00 Isosorbide Dinitrate 10 mg 10 mg TID PO Last administered on 12/01/16 08:21; Admin Dose 10 MG; Start 11/30/16 at 14:00 Levofloxacin/ Dextrose (Levaquin 250 Mg/ D5W 50 ml (Pmx)) 50 ml @ 50 mls/hr Q48H IVPB Last administered on 11/30/16 21:54; Admin Dose 50 MLS/HR; Start at 20:00 Minoxidil (Loniten) 5 mg BID PO ; Start 12/01/16 at 21:00 Assessment/Plan Chief Complaint/Hosp Course Assessment 1. Acute tracheobronchitis improved. 2. Hypoxemic respiratory distress improved. 3. History of hypothyroidism 4. Mild renal insufficiency Plan 1. Continue bronchodilators 2. Continue steroid taper 3. Continue to encourage out of bed dc ok from pulm standpoint. Problems: ISABEL DONG MD, [facility] Dec 01, 2016 10:38
--- NOTE | 2016-12-01 16:52 | CONS ---
Date/Time of Note Date/Time of Note DATE: 12/01/16 TIME: 16:51 Assessment/Plan Assessment/Plan Additional Assessment/Plan 1. acute kidney injury due to prerenal azotemia 2. Hyponatremia due to hypovolemic hyponatremia 3. acute COPD exacerbation 4. HTN 5. Hypothyroidism Plan: IV levaquin- renally dose, Cr tending up, d/w with pharmacy IV solumedrol- change to Q 8 hr continue to hold lisinopril due to rising creatiine, monitor K BP stable will follow up Consultation Date/Type/Reason Admit Date/Time Nov 29, 2016 at 17:53 Initial Consult Date 11/30/16 Type of Consultation: Pulm Referring Provider: JONAS CALDERON MD Exam/Review of Systems Vital Signs Vitals Vital Signs Date Time Temp Pulse Resp B/P Pulse Ox O2 Delivery O2 Flow Rate FiO2 12/01/16 15:00 140/75 12/01/16 14:03 98.3 78 18 94 12/01/16 13:22 21 11/29/16 23:42 Room Air Intake and Output 11/30/16 11/30/16 12/01/16 14:59 22:59 06:59 Intake Total 2050 ml 480 ml Output Total 200 ml Balance 1850 ml 480 ml Results Result Diagram: 12/01/1651612/01/16516 Results 24 hrs Laboratory Tests Test 11/30/16 18:04 12/01/16 00:38 12/01/16 05:17 Creatine Kinase 249 H 267 H Creatine Kinase Index 2.6 2.5 Creatinine Kinase MB (Mass) 6.45 H 6.55 H Troponin I 0.045 0.048 White Blood Count 8.3 # Red Blood Count 3.28 L Hemoglobin 10.3 L Hematocrit 29.7 L Mean Corpuscular Volume 90.5 Mean Corpuscular Hemoglobin 31.4 Mean Corpuscular Hemoglobin Concent 34.7 Red Cell Distribution Width 12.8 Platelet Count 140 Mean Platelet Volume 11.8 H Neutrophils % 91.0 H Lymphocytes % 7.1 L Monocytes % 1.7 Eosinophils % 0.0 Basophils % 0.0 Nucleated Red Blood Cells % 0.0 Neutrophils # (Manual) 7.6 H Lymphocytes # 0.6 L Monocytes # 0.1 L Eosinophils # 0.0 Basophils # 0.0 Nucleated Red Blood Cells # 0.0 Sodium Level 134 L Potassium Level 5.1 Chloride Level 97 Carbon Dioxide Level 23 Anion Gap 19 H Blood Urea Nitrogen 33 H Creatinine 1.68 H Glucose Level 141 Calcium Level 8.6 Triglycerides Level 80 Cholesterol Level 144 LDL Cholesterol, Calculated 80 HDL Cholesterol 48 Cholesterol/HDL Ratio 3.0 Medications Medications Current Medications Aspirin (Halfprin) 81 mg DAILY PO Last administered on 12/01/16 08:08; Admin Dose 81 MG; Start 11/30/16 at 09:00 Montelukast Sodium (Singulair) 10 mg QHS PO Last administered on 11/30/16 21: 24; Admin Dose 10 MG; Start 11/30/16 at 21:00 Naproxen (Naprosyn) 250 mg BID PO Last administered on 12/01/16 08:07; Admin Dose 250 MG; Start 11/30/16 at 09:00 Pantoprazole (Protonix Tab) 40 mg DAILY@06 PO Last administered on 12/01/16 06 :04; Admin Dose 40 MG; Start 11/30/16 at 06:00 Hydralazine HCl (Apresoline) 10 mg Q6 PRN IV ELEVATED BLOOD PRESSURE Last administered on 11/30/16 08:49; Admin Dose 10 MG; Start 11/29/16 at 21:30 Enoxaparin Sodium (Lovenox) 30 mg DAILY SC Last administered on 12/01/16 08:12 ; Admin Dose 30 MG; Start 11/30/16 at 09:00 Acetaminophen (Tylenol Tab) 650 mg Q4H PRN PO PAIN AND OR ELEVATED TEMP Last administered on 11/30/16 06:51; Admin Dose 650 MG; Start 11/30/16 at 06:47 Methylprednisolone Sodium Succinate (Solu-Medrol) 20 mg Q6 IV Last administered on 12/01/16 12:19; Admin Dose 20 MG; Start 11/30/16 at 12:00 Hydralazine HCl (Apresoline) 25 mg Q8 PO Last administered on 12/01/16 14:30; Admin Dose 25 MG; Start 11/30/16 at 14:00 Metoprolol Tartrate (Lopressor) 25 mg BID PO Last administered on 12/01/16 08: 17; Admin Dose 25 MG; Start 11/30/16 at 13:00 Isosorbide Dinitrate 10 mg 10 mg TID PO Last administered on 12/01/16 12:18; Admin Dose 10 MG; Start 11/30/16 at 14:00 Levofloxacin/ Dextrose (Levaquin 250 Mg/ D5W 50 ml (Pmx)) 50 ml @ 50 mls/hr Q48H IVPB Last administered on 11/30/16 21:54; Admin Dose 50 MLS/HR; Start at 20:00 Minoxidil (Loniten) 5 mg BID PO ; Start 12/01/16 at 21:00 ARIANE CHRIS MD Dec 01, 2016 16:52
--- NOTE | 2016-12-01 18:08 | RADRPT ---
Vent Rate: 69 bpm RR Interval: 0 msec OK Interval: 164 msec QRS Duration: 100 msec QT Interval: 418 msec QTC Interval: 447 msec P-R-T [place]: 36 - 18 - 43 degrees Normal sinus rhythm Septal infarct , age undetermined Abnormal ECG Electronically Signed By: Ian Collazo [id number]
[2016-12-01] MEDS: ALBUTEROL/IPRATROPIUM (NEB) 3 ML AMP HHN PRN (18:22)
--- NOTE | 2016-12-01 18:26 | PN ---
Date/Time of Note Date/Time of Note DATE: 12/01/16 TIME: 18:24 Assessment/Plan VTE Prophylaxis VTE Prophylaxis Intervention: SCD's Lines/Catheters IV Catheter Type (from [facility]): [place] Assessment/Plan Chief Complaint/Hosp Course Assessment/Plan - COPD with acute exacerbation, tinea breathing treatment steroids and oxygen supplementation. - Acute tracheobronchitis, continue Levaquin - Rule out acute coronary syndrome. Dr. Vazquez is following in cardiology consultation. -Acute kidney injury. Dr. Bernstein is following in nephrology consultation. - Hyperkalemia, s/p Kayexalate, continue to monitor electrolytes - Hypertension, continue metoprolol - Hypothyroidism, TSH is within normal limits, continue current dose of Synthroid Further recommendations based on clinical course. Plan of care discussed with Dr. Mcallister. Problems: Exam/Review of Systems Vital Signs Vitals Vital Signs Date Time Temp Pulse Resp B/P Pulse Ox O2 Delivery O2 Flow Rate FiO2 12/01/16 15:00 140/75 12/01/16 14:03 98.3 78 18 94 12/01/16 13:22 21 11/29/16 23:42 Room Air Intake and Output 11/30/16 11/30/16 12/01/16 14:59 22:59 06:59 Intake Total 2050 ml 480 ml Output Total 200 ml Balance 1850 ml 480 ml Exam Constitutional: alert, oriented Head: normocephalic Neck: supple Respiratory: normal air movement Cardiovascular: nl pulses Gastrointestinal: soft Extremities: edema, normal pulses Results Result Diagram: 12/01/1617 12/01/16 0517 Results 24 hrs Laboratory Tests Test 12/01/16 00:38 12/01/16 05:17 Creatine Kinase 267 H Creatine Kinase Index 2.5 Creatinine Kinase MB (Mass) 6.55 H Troponin I 0.048 White Blood Count 8.3 # Red Blood Count 3.28 L Hemoglobin 10.3 L Hematocrit 29.7 L Mean Corpuscular Volume 90.5 Mean Corpuscular Hemoglobin 31.4 Mean Corpuscular Hemoglobin Concent 34.7 Red Cell Distribution Width 12.8 Platelet Count 140 Mean Platelet Volume 11.8 H Neutrophils % 91.0 H Lymphocytes % 7.1 L Monocytes % 1.7 Eosinophils % 0.0 Basophils % 0.0 Nucleated Red Blood Cells % 0.0 Neutrophils # (Manual) 7.6 H Lymphocytes # 0.6 L Monocytes # 0.1 L Eosinophils # 0.0 Basophils # 0.0 Nucleated Red Blood Cells # 0.0 Sodium Level 134 L Potassium Level 5.1 Chloride Level 97 Carbon Dioxide Level 23 Anion Gap 19 H Blood Urea Nitrogen 33 H Creatinine 1.68 H Glucose Level 141 Calcium Level 8.6 Triglycerides Level 80 Cholesterol Level 144 LDL Cholesterol, Calculated 80 HDL Cholesterol 48 Cholesterol/HDL Ratio 3.0 Medications Medications Current Medications Aspirin (Halfprin) 81 mg DAILY PO Last administered on 12/01/16 08:08; Admin Dose 81 MG; Start 11/30/16 at 09:00 Montelukast Sodium (Singulair) 10 mg QHS PO Last administered on 11/30/16 21: 24; Admin Dose 10 MG; Start 11/30/16 at 21:00 Naproxen (Naprosyn) 250 mg BID PO Last administered on 12/01/16 08:07; Admin Dose 250 MG; Start 11/30/16 at 09:00 Pantoprazole (Protonix Tab) 40 mg DAILY@06 PO Last administered on 12/01/16 06 :04; Admin Dose 40 MG; Start 11/30/16 at 06:00 Hydralazine HCl (Apresoline) 10 mg Q6 PRN IV ELEVATED BLOOD PRESSURE Last administered on 11/30/16 08:49; Admin Dose 10 MG; Start 11/29/16 at 21:30 Enoxaparin Sodium (Lovenox) 30 mg DAILY SC Last administered on 12/01/16 08:12 ; Admin Dose 30 MG; Start 11/30/16 at 09:00 Acetaminophen (Tylenol Tab) 650 mg Q4H PRN PO PAIN AND OR ELEVATED TEMP Last administered on 11/30/16 06:51; Admin Dose 650 MG; Start 11/30/16 at 06:47 Hydralazine HCl (Apresoline) 25 mg Q8 PO Last administered on 12/01/16 14:30; Admin Dose 25 MG; Start 11/30/16 at 14:00 Metoprolol Tartrate (Lopressor) 25 mg BID PO Last administered on 12/01/16 08: 17; Admin Dose 25 MG; Start 11/30/16 at 13:00 Isosorbide Dinitrate 10 mg 10 mg TID PO Last administered on 12/01/16 12:18; Admin Dose 10 MG; Start 11/30/16 at 14:00 Levofloxacin/ Dextrose (Levaquin 250 Mg/ D5W 50 ml (Pmx)) 50 ml @ 50 mls/hr Q48H IVPB Last administered on 11/30/16 21:54; Admin Dose 50 MLS/HR; Start at 20:00 Minoxidil (Loniten) 5 mg BID PO ; Start 12/01/16 at 21:00 Methylprednisolone Sodium Succinate (Solu-Medrol) 20 mg Q8 IV ; Start 12/01/16 at 22:00 MARTI RINALDI Dec 01, 2016 18:26
[2016-12-01] MEDS: MONTELUKAST 10 MG TAB PO SCH (20:48)
[2016-12-01] MEDS: ACETAMINOPHEN 325 MG TAB PO PRN (20:49)
[2016-12-01] MEDS: MINOXIDIL 2.5 MG TAB PO SCH (20:51)
[2016-12-02] MEDS: ALBUTEROL/IPRATROPIUM (NEB) 3 ML AMP HHN SCH ×4 (01:11→20:07)
[2016-12-02 02:19] VITALS: BP 135/63; RESP 18
[2016-12-02] MEDS: PANTOPRAZOLE (EC) 40 MG TAB PO SCH (06:04)
[2016-12-02] MEDS: METHYLPREDNISOLONE 40 MG INJ IV SCH ×3 (06:04→22:57)
[2016-12-02] MEDS: LEVOTHYROXINE 50 MCG TAB PO SCH (06:31)
[2016-12-02 06:40] LABS: BASOPHILS % 0.1 % (0.0-2.0); HEMATOCRIT 30.2 % (42.0-52.0); HEMOGLOBIN 10.5 g/dl (14.0-18.0); LYMPHOCYTES # 0.7 10^3/ul (0.8-2.9); LYMPHOCYTES % 9.1 % (15.0-51.0); MEAN CORPUSCULAR HEMOGLOBIN 31.5 pg (29.0-33.0); MEAN CORPUSCULAR HGB CONC 34.8 g/dl (32.0-37.0); MEAN CORPUSCULAR VOLUME 90.7 fl (82.0-101.0); MEAN PLATELET VOLUME 11.5 fl (7.4-10.4); MONOCYTE # 0.4 10^3/ul (0.3-0.9); MONOCYTES % 5.3 % (0.0-11.0); NEUTROPHILS % 84.8 % (39.0-77.0); PLATELET COUNT 148 10^3/UL (140-415); RED BLOOD COUNT 3.33 10^6/ul (4.70-6.10); RED CELL DISTRIBUTION WIDTH 12.6 % (11.5-14.5); WHITE BLOOD COUNT 8.1 10^3/ul (4.8-10.8)
[2016-12-02 07:03] LABS: CALCIUM 8.5 mg/dl (8.4-10.2); CREATININE 1.62 mg/dl (0.61-1.24); POTASSIUM 5.1 mmol/L (3.5-5.1)
[2016-12-02 07:47] VITALS: BP 130/59; RESP 20
[2016-12-02] MEDS: ASPIRIN (EC) 81 MG TAB PO SCH (08:27)
[2016-12-02] MEDS: NAPROXEN 250 MG TAB PO SCH ×2 (08:27→21:19)
[2016-12-02] MEDS: ISOSORBIDE DINITRATE 10 MG TAB PO SCH ×3 (08:28→21:18)
[2016-12-02] MEDS: METOPROLOL 25 MG TAB PO SCH ×2 (08:28→21:19)
[2016-12-02] MEDS: MINOXIDIL 2.5 MG TAB PO SCH ×2 (08:28→21:18)
[2016-12-02] MEDS: ENOXAPARIN 30 MG/0.3 ML SYG SC SCH (08:29)
--- NOTE | 2016-12-02 13:15 | CONS ---
Date/Time of Note Date/Time of Note DATE: 12/02/16 TIME: 13:13 Consult Date/Type/Reason Admit Date/Time Nov 29, 2016 at 17:53 Initial Consult Date 11/30/16 Type of Consultation: Pulm Ordering Provider: JONAS CALDERON MD Subjective Comfortable, less sob. Objective Vital Signs Date Time Temp Pulse Resp B/P Pulse Ox O2 Delivery O2 Flow Rate FiO2 12/02/16 08:48 69 98 21 12/02/16 07:47 98.3 69 130/59 11/29/16 23:42 Room Air Intake and Output 12/01/16 12/01/16 12/02/16 15:00 23:00 07:00 Intake Total 590 ml 450 ml Balance 590 ml 450 ml Results/Medications Result Diagram: 12/02/16 0540 12/02/16 0540 Results 24 hrs Laboratory Tests Test 12/02/16 05:40 White Blood Count 8.1 Red Blood Count 3.33 L Hemoglobin 10.5 L Hematocrit 30.2 L Mean Corpuscular Volume 90.7 Mean Corpuscular Hemoglobin 31.5 Mean Corpuscular Hemoglobin Concent 34.8 Red Cell Distribution Width 12.6 Platelet Count 148 Mean Platelet Volume 11.5 H Neutrophils % 84.8 H Lymphocytes % 9.1 L Monocytes % 5.3 Eosinophils % 0.0 Basophils % 0.1 Nucleated Red Blood Cells % 0.0 Neutrophils # (Manual) 6.8 Lymphocytes # 0.7 L Monocytes # 0.4 Eosinophils # 0.0 Basophils # 0.0 Nucleated Red Blood Cells # 0.0 Sodium Level 133 L Potassium Level 5.1 Chloride Level 96 L Carbon Dioxide Level 23 Anion Gap 19 H Blood Urea Nitrogen 43 H Creatinine 1.62 H Glucose Level 137 Calcium Level 8.5 Medications Current Medications Aspirin (Halfprin) 81 mg DAILY PO Last administered on 12/02/16 08:27; Admin Dose 81 MG; Start 11/30/16 at 09:00 Montelukast Sodium (Singulair) 10 mg QHS PO Last administered on 12/01/16 20: 48; Admin Dose 10 MG; Start 11/30/16 at 21:00 Naproxen (Naprosyn) 250 mg BID PO Last administered on 12/02/16 08:27; Admin Dose 250 MG; Start 11/30/16 at 09:00 Pantoprazole (Protonix Tab) 40 mg DAILY@06 PO Last administered on 12/02/16 06 :04; Admin Dose 40 MG; Start 11/30/16 at 06:00 Hydralazine HCl (Apresoline) 10 mg Q6 PRN IV ELEVATED BLOOD PRESSURE Last administered on 11/30/16 08:49; Admin Dose 10 MG; Start 11/29/16 at 21:30 Enoxaparin Sodium (Lovenox) 30 mg DAILY SC Last administered on 12/02/16 08:29 ; Admin Dose 30 MG; Start 11/30/16 at 09:00 Acetaminophen (Tylenol Tab) 650 mg Q4H PRN PO PAIN AND OR ELEVATED TEMP Last administered on 12/01/16 20:49; Admin Dose 650 MG; Start 11/30/16 at 06:47 Hydralazine HCl (Apresoline) 25 mg Q8 PO Last administered on 12/02/16 06:04; Admin Dose 25 MG; Start 11/30/16 at 14:00 Metoprolol Tartrate (Lopressor) 25 mg BID PO Last administered on 12/02/16 08: 28; Admin Dose 25 MG; Start 11/30/16 at 13:00 Isosorbide Dinitrate 10 mg 10 mg TID PO Last administered on 12/02/16 08:28; Admin Dose 10 MG; Start 11/30/16 at 14:00 Levofloxacin/ Dextrose (Levaquin 250 Mg/ D5W 50 ml (Pmx)) 50 ml @ 50 mls/hr Q48H IVPB Last administered on 11/30/16 21:54; Admin Dose 50 MLS/HR; Start at 20:00 Minoxidil (Loniten) 5 mg BID PO Last administered on 12/02/16 08:28; Admin Dose 5 MG; Start 12/01/16 at 21:00 Methylprednisolone Sodium Succinate (Solu-Medrol) 20 mg Q8 IV Last administered on 12/02/16 06:04; Admin Dose 20 MG; Start 12/01/16 at 22:00 Assessment/Plan Chief Complaint/Hosp Course Assessment 1. Acute tracheobronchitis improved. 2. Hypoxemic respiratory distress improved. 3. History of hypothyroidism 4. Mild renal insufficiency 5. Doubt ACS. Plan 1. Continue bronchodilators 2. Continue steroid taper 3. Continue to encourage out of bed dc ok from pulm standpoint outpatient Pulm and PFTs. Problems: ISABEL DONG MD, [facility] Dec 02, 2016 13:15
--- NOTE | 2016-12-02 14:06 | CONS ---
Date/Time of Note Date/Time of Note DATE: 12/02/16 TIME: 13:59 Assessment/Plan Assessment/Plan Chief Complaint/Hosp Course IMPRESSION: 1. Chest pain. Assess for acute coronary syndrome, at this time only with cough.-negative trop x3/NL EF by echo this admit/ no further ongoing cp 2. Abnormal electrocardiogram, with anteroseptal Q's. Assess for acute coronary syndrome. 3. Hypertension, uncontrolled. 4. Chronic obstructive pulmonary disease exacerbation. 5. Shortness of breath. 6. Renal failure. 7. Anemia. 8. Leukocytosis. Recc: -Tele -serial ecg's -Continue asa -Continue current hydralazine with uptitration -Continue current BB/isordil -Continue abx's and f/u cx data -Continue steroids/bronchodilators Problems: Consultation Date/Type/Reason Admit Date/Time Nov 29, 2016 at 17:53 Initial Consult Date 11/30/16 Type of Consultation: cardiology Reason for Consultation chest pain Referring Provider: JONAS CALDERON MD Exam/Review of Systems Vital Signs Vitals Vital Signs Date Time Temp Pulse Resp B/P Pulse Ox O2 Delivery O2 Flow Rate FiO2 12/02/16 13:17 94 20 96 21 12/02/16 07:47 98.3 130/59 11/29/16 23:42 Room Air Intake and Output 12/01/16 12/01/16 12/02/16 15:00 23:00 07:00 Intake Total 590 ml 450 ml Balance 590 ml 450 ml Exam Review of Systems: CONSTITUTIONAL: No fevers, chills. PULMONARY: No sob CARDIOVASCULAR: No chest pain/palpitations GASTROINTESTINAL: No nausea/vomiting. GENITOURINARY: No hematuria/dysuria. MUSCULOSKELETAL: No myagias/arthalgias. PSYCHIATRIC: The patient denies depression. NEUROLOGIC: No weakness Constitutional: alert Psych: no complaints Head: normocephalic ENMT: mucosa pink and moist Neck: jvd, supple Respiratory: diminished breath sounds Cardiovascular: regular rate and rhythm Gastrointestinal: non-tender, soft Musculoskeletal: muscle tone (normal) Extremities: edema (none) Neurological: other (No focal deficvits) Results Result Diagram: 12/02/16 0540 12/02/16 0540 Results 24 hrs Laboratory Tests Test 12/02/16 05:40 White Blood Count 8.1 Red Blood Count 3.33 L Hemoglobin 10.5 L Hematocrit 30.2 L Mean Corpuscular Volume 90.7 Mean Corpuscular Hemoglobin 31.5 Mean Corpuscular Hemoglobin Concent 34.8 Red Cell Distribution Width 12.6 Platelet Count 148 Mean Platelet Volume 11.5 H Neutrophils % 84.8 H Lymphocytes % 9.1 L Monocytes % 5.3 Eosinophils % 0.0 Basophils % 0.1 Nucleated Red Blood Cells % 0.0 Neutrophils # (Manual) 6.8 Lymphocytes # 0.7 L Monocytes # 0.4 Eosinophils # 0.0 Basophils # 0.0 Nucleated Red Blood Cells # 0.0 Sodium Level 133 L Potassium Level 5.1 Chloride Level 96 L Carbon Dioxide Level 23 Anion Gap 19 H Blood Urea Nitrogen 43 H Creatinine 1.62 H Glucose Level 137 Calcium Level 8.5 Medications Medications Current Medications Aspirin (Halfprin) 81 mg DAILY PO Last administered on 12/02/16 08:27; Admin Dose 81 MG; Start 11/30/16 at 09:00 Montelukast Sodium (Singulair) 10 mg QHS PO Last administered on 12/01/16 20: 48; Admin Dose 10 MG; Start 11/30/16 at 21:00 Naproxen (Naprosyn) 250 mg BID PO Last administered on 12/02/16 08:27; Admin Dose 250 MG; Start 11/30/16 at 09:00 Pantoprazole (Protonix Tab) 40 mg DAILY@06 PO Last administered on 12/02/16 06 :04; Admin Dose 40 MG; Start 11/30/16 at 06:00 Hydralazine HCl (Apresoline) 10 mg Q6 PRN IV ELEVATED BLOOD PRESSURE Last administered on 11/30/16 08:49; Admin Dose 10 MG; Start 11/29/16 at 21:30 Enoxaparin Sodium (Lovenox) 30 mg DAILY SC Last administered on 12/02/16 08:29 ; Admin Dose 30 MG; Start 11/30/16 at 09:00 Acetaminophen (Tylenol Tab) 650 mg Q4H PRN PO PAIN AND OR ELEVATED TEMP Last administered on 12/01/16 20:49; Admin Dose 650 MG; Start 11/30/16 at 06:47 Hydralazine HCl (Apresoline) 25 mg Q8 PO Last administered on 12/02/16 13:52; Admin Dose 25 MG; Start 11/30/16 at 14:00 Metoprolol Tartrate (Lopressor) 25 mg BID PO Last administered on 12/02/16 08: 28; Admin Dose 25 MG; Start 11/30/16 at 13:00 Isosorbide Dinitrate 10 mg 10 mg TID PO Last administered on 12/02/16 13:52; Admin Dose 10 MG; Start 11/30/16 at 14:00 Levofloxacin/ Dextrose (Levaquin 250 Mg/ D5W 50 ml (Pmx)) 50 ml @ 50 mls/hr Q48H IVPB Last administered on 11/30/16 21:54; Admin Dose 50 MLS/HR; Start at 20:00 Minoxidil (Loniten) 5 mg BID PO Last administered on 12/02/16 08:28; Admin Dose 5 MG; Start 12/01/16 at 21:00 Methylprednisolone Sodium Succinate (Solu-Medrol) 20 mg Q8 IV Last administered on 12/02/16 13:51; Admin Dose 20 MG; Start 12/01/16 at 22:00 CONG DUGGAN Dec 02, 2016 14:06
[2016-12-02 14:44] VITALS: BP 132/62; RESP 20
[2016-12-02] MEDS: ACETAMINOPHEN 325 MG TAB PO PRN (16:27)
--- NOTE | 2016-12-02 17:13 | CONS ---
Date/Time of Note Date/Time of Note DATE: 12/02/16 TIME: 17:10 Assessment/Plan Assessment/Plan Additional Assessment/Plan 1. acute kidney injury due to prerenal azotemia 2. Hyponatremia due to hypovolemic hyponatremia 3. acute COPD exacerbation 4. HTN, not well controlled 5. Hypothyroidism Plan: IV levaquin- renally dose, BUN 43, Cr 1.5- stable today IV solumedrol- change to Q 8 hr continue to hold lisinopril due to rising creatiine, monitor K , continue MTP, Minoxidil, Hydralazine for BP control, if needed we can increase hydralzine or add amlodipine for better BP control BP stable will follow up Consultation Date/Type/Reason Admit Date/Time Nov 29, 2016 at 17:53 Initial Consult Date 11/30/16 Type of Consultation: NEPHROLOGY Referring Provider: JONAS CALDERON MD Exam/Review of Systems Vital Signs Vitals Vital Signs Date Time Temp Pulse Resp B/P Pulse Ox O2 Delivery O2 Flow Rate FiO2 12/02/16 14:44 98.3 72 20 132/62 98 12/02/16 13:17 21 11/29/16 23:42 Room Air Intake and Output 12/01/16 12/01/16 12/02/16 15:00 23:00 07:00 Intake Total 590 ml 450 ml Balance 590 ml 450 ml Exam Constitutional: alert, oriented Respiratory: clear to auscultation, normal air movement Cardiovascular: nl pulses, regular rate and rhythm Gastrointestinal: nl liver, spleen, non-tender, soft Musculoskeletal: nl extremities to inspection Extremities: normal pulses Neurological: [employer] II-XII intact, nl mental status, nl speech, nl strength Skin: nl turgor, rash or lesions Lymph: nl lymph nodes Results Result Diagram: 12/02/16 0540 12/02/16 0540 Results 24 hrs Laboratory Tests Test 12/02/16 05:40 White Blood Count 8.1 Red Blood Count 3.33 L Hemoglobin 10.5 L Hematocrit 30.2 L Mean Corpuscular Volume 90.7 Mean Corpuscular Hemoglobin 31.5 Mean Corpuscular Hemoglobin Concent 34.8 Red Cell Distribution Width 12.6 Platelet Count 148 Mean Platelet Volume 11.5 H Neutrophils % 84.8 H Lymphocytes % 9.1 L Monocytes % 5.3 Eosinophils % 0.0 Basophils % 0.1 Nucleated Red Blood Cells % 0.0 Neutrophils # (Manual) 6.8 Lymphocytes # 0.7 L Monocytes # 0.4 Eosinophils # 0.0 Basophils # 0.0 Nucleated Red Blood Cells # 0.0 Sodium Level 133 L Potassium Level 5.1 Chloride Level 96 L Carbon Dioxide Level 23 Anion Gap 19 H Blood Urea Nitrogen 43 H Creatinine 1.62 H Glucose Level 137 Calcium Level 8.5 Medications Medications Current Medications Aspirin (Halfprin) 81 mg DAILY PO Last administered on 12/02/16 08:27; Admin Dose 81 MG; Start 11/30/16 at 09:00 Montelukast Sodium (Singulair) 10 mg QHS PO Last administered on 12/01/16 20: 48; Admin Dose 10 MG; Start 11/30/16 at 21:00 Naproxen (Naprosyn) 250 mg BID PO Last administered on 12/02/16 08:27; Admin Dose 250 MG; Start 11/30/16 at 09:00 Pantoprazole (Protonix Tab) 40 mg DAILY@06 PO Last administered on 12/02/16 06 :04; Admin Dose 40 MG; Start 11/30/16 at 06:00 Hydralazine HCl (Apresoline) 10 mg Q6 PRN IV ELEVATED BLOOD PRESSURE Last administered on 11/30/16 08:49; Admin Dose 10 MG; Start 11/29/16 at 21:30 Enoxaparin Sodium (Lovenox) 30 mg DAILY SC Last administered on 12/02/16 08:29 ; Admin Dose 30 MG; Start 11/30/16 at 09:00 Acetaminophen (Tylenol Tab) 650 mg Q4H PRN PO PAIN AND OR ELEVATED TEMP Last administered on 12/02/16 16:27; Admin Dose 650 MG; Start 11/30/16 at 06:47 Metoprolol Tartrate (Lopressor) 25 mg BID PO Last administered on 12/02/16 08: 28; Admin Dose 25 MG; Start 11/30/16 at 13:00 Isosorbide Dinitrate 10 mg 10 mg TID PO Last administered on 12/02/16 13:52; Admin Dose 10 MG; Start 11/30/16 at 14:00 Levofloxacin/ Dextrose (Levaquin 250 Mg/ D5W 50 ml (Pmx)) 50 ml @ 50 mls/hr Q48H IVPB Last administered on 11/30/16 21:54; Admin Dose 50 MLS/HR; Start at 20:00 Minoxidil (Loniten) 5 mg BID PO Last administered on 12/02/16 08:28; Admin Dose 5 MG; Start 12/01/16 at 21:00 Methylprednisolone Sodium Succinate (Solu-Medrol) 20 mg Q8 IV Last administered on 12/02/16 13:51; Admin Dose 20 MG; Start 12/01/16 at 22:00 Hydralazine HCl (Apresoline) 50 mg Q8 PO Last administered on 12/02/16 14:04; Admin Dose 50 MG; Start 12/02/16 at 14:00 ARIANE CHRIS MD Dec 02, 2016 17:13
--- NOTE | 2016-12-02 18:24 | PN ---
Date/Time of Note Date/Time of Note DATE: 12/02/16 TIME: 18:22 Assessment/Plan VTE Prophylaxis VTE Prophylaxis Intervention: SCD's Lines/Catheters IV Catheter Type (from Nrs): Saline Lock Assessment/Plan Chief Complaint/Hosp Course Patient with improvements in symptoms of shortness of breath, denies any chest pain Assessment/Plan - COPD with acute exacerbation, tinea breathing treatment steroids and oxygen supplementation. - Acute tracheobronchitis, continue Levaquin - Rule out acute coronary syndrome. Dr. Vazquez is following in cardiology consultation. -Acute kidney injury. Dr. Bernstein is following in nephrology consultation. - Hyperkalemia, s/p Kayexalate, continue to monitor electrolytes - Hypertension, continue metoprolol - Hypothyroidism, TSH is within normal limits, continue current dose of Synthroid Further recommendations based on clinical course. Plan of care discussed with Dr. Mcallister. Problems: Exam/Review of Systems Vital Signs Vitals Vital Signs Date Time Temp Pulse Resp B/P Pulse Ox O2 Delivery O2 Flow Rate FiO2 12/02/16 14:44 98.3 72 20 132/62 98 12/02/16 13:17 21 11/29/16 23:42 Room Air Intake and Output 12/01/16 12/01/16 12/02/16 14:59 22:59 06:59 Intake Total 590 ml 450 ml Balance 590 ml 450 ml Exam Constitutional: alert, oriented Head: normocephalic Neck: supple Respiratory: normal air movement Cardiovascular: nl pulses Gastrointestinal: soft Extremities: edema, normal pulses Results Result Diagram: 12/02/16 0540 12/02/16 0540 Results 24 hrs Laboratory Tests Test 12/02/16 05:40 White Blood Count 8.1 Red Blood Count 3.33 L Hemoglobin 10.5 L Hematocrit 30.2 L Mean Corpuscular Volume 90.7 Mean Corpuscular Hemoglobin 31.5 Mean Corpuscular Hemoglobin Concent 34.8 Red Cell Distribution Width 12.6 Platelet Count 148 Mean Platelet Volume 11.5 H Neutrophils % 84.8 H Lymphocytes % 9.1 L Monocytes % 5.3 Eosinophils % 0.0 Basophils % 0.1 Nucleated Red Blood Cells % 0.0 Neutrophils # (Manual) 6.8 Lymphocytes # 0.7 L Monocytes # 0.4 Eosinophils # 0.0 Basophils # 0.0 Nucleated Red Blood Cells # 0.0 Sodium Level 133 L Potassium Level 5.1 Chloride Level 96 L Carbon Dioxide Level 23 Anion Gap 19 H Blood Urea Nitrogen 43 H Creatinine 1.62 H Glucose Level 137 Calcium Level 8.5 Medications Medications Current Medications Aspirin (Halfprin) 81 mg DAILY PO Last administered on 12/02/16 08:27; Admin Dose 81 MG; Start 11/30/16 at 09:00 Montelukast Sodium (Singulair) 10 mg QHS PO Last administered on 12/01/16 20: 48; Admin Dose 10 MG; Start 11/30/16 at 21:00 Naproxen (Naprosyn) 250 mg BID PO Last administered on 12/02/16 08:27; Admin Dose 250 MG; Start 11/30/16 at 09:00 Pantoprazole (Protonix Tab) 40 mg DAILY@06 PO Last administered on 12/02/16 06 :04; Admin Dose 40 MG; Start 11/30/16 at 06:00 Hydralazine HCl (Apresoline) 10 mg Q6 PRN IV ELEVATED BLOOD PRESSURE Last administered on 11/30/16 08:49; Admin Dose 10 MG; Start 11/29/16 at 21:30 Enoxaparin Sodium (Lovenox) 30 mg DAILY SC Last administered on 12/02/16 08:29 ; Admin Dose 30 MG; Start 11/30/16 at 09:00 Acetaminophen (Tylenol Tab) 650 mg Q4H PRN PO PAIN AND OR ELEVATED TEMP Last administered on 12/02/16 16:27; Admin Dose 650 MG; Start 11/30/16 at 06:47 Metoprolol Tartrate (Lopressor) 25 mg BID PO Last administered on 12/02/16 08: 28; Admin Dose 25 MG; Start 11/30/16 at 13:00 Isosorbide Dinitrate 10 mg 10 mg TID PO Last administered on 12/02/16 13:52; Admin Dose 10 MG; Start 11/30/16 at 14:00 Levofloxacin/ Dextrose (Levaquin 250 Mg/ D5W 50 ml (Pmx)) 50 ml @ 50 mls/hr Q48H IVPB Last administered on 11/30/16 21:54; Admin Dose 50 MLS/HR; Start at 20:00 Minoxidil (Loniten) 5 mg BID PO Last administered on 12/02/16 08:28; Admin Dose 5 MG; Start 12/01/16 at 21:00 Methylprednisolone Sodium Succinate (Solu-Medrol) 20 mg Q8 IV Last administered on 12/02/16 13:51; Admin Dose 20 MG; Start 12/01/16 at 22:00 Hydralazine HCl (Apresoline) 50 mg Q8 PO Last administered on 12/02/16 14:04; Admin Dose 50 MG; Start 12/02/16 at 14:00 MARTI RINALDI Dec 02, 2016 18:24
[2016-12-02 20:53] VITALS: BP 179/78; RESP 16
[2016-12-02] MEDS: LEVOFLOXACIN 250MG/D5W (PMX) 50 ML IVPB SCH (21:13)
[2016-12-02] MEDS: MONTELUKAST 10 MG TAB PO SCH (21:19)
[2016-12-03] MEDS: ALBUTEROL/IPRATROPIUM (NEB) 3 ML AMP HHN SCH ×4 (01:04→20:03)
[2016-12-03 02:33] VITALS: BP 120/59; RESP 16
[2016-12-03] MEDS: METHYLPREDNISOLONE 40 MG INJ IV SCH ×3 (05:35→21:17)
[2016-12-03] MEDS: PANTOPRAZOLE (EC) 40 MG TAB PO SCH (05:36)
[2016-12-03] MEDS: LEVOTHYROXINE 50 MCG TAB PO SCH (06:05)
[2016-12-03 06:43] LABS: BASOPHILS % 0.2 % (0.0-2.0); HEMATOCRIT 33.9 % (42.0-52.0); HEMOGLOBIN 11.9 g/dl (14.0-18.0); LYMPHOCYTES # 0.6 10^3/ul (0.8-2.9); LYMPHOCYTES % 7.5 % (15.0-51.0); MEAN CORPUSCULAR HEMOGLOBIN 31.5 pg (29.0-33.0); MEAN CORPUSCULAR HGB CONC 35.1 g/dl (32.0-37.0); MEAN CORPUSCULAR VOLUME 89.7 fl (82.0-101.0); MEAN PLATELET VOLUME 11.6 fl (7.4-10.4); MONOCYTE # 0.4 10^3/ul (0.3-0.9); MONOCYTES % 4.4 % (0.0-11.0); NEUTROPHILS % 86.7 % (39.0-77.0); PLATELET COUNT 187 10^3/UL (140-415); RED BLOOD COUNT 3.78 10^6/ul (4.70-6.10); RED CELL DISTRIBUTION WIDTH 12.5 % (11.5-14.5); WHITE BLOOD COUNT 8.4 10^3/ul (4.8-10.8)
[2016-12-03 07:20] LABS: CREATININE 1.53 mg/dl (0.61-1.24); POTASSIUM 4.6 mmol/L (3.5-5.1)
[2016-12-03 07:35] VITALS: BP 95/50; RESP 19
[2016-12-03] MEDS: ENOXAPARIN 30 MG/0.3 ML SYG SC SCH (09:01)
[2016-12-03] MEDS: ISOSORBIDE DINITRATE 10 MG TAB PO SCH ×3 (09:01→21:12)
[2016-12-03] MEDS: ASPIRIN (EC) 81 MG TAB PO SCH (09:02)
[2016-12-03] MEDS: METOPROLOL 25 MG TAB PO SCH ×2 (09:02→21:12)
[2016-12-03] MEDS: NAPROXEN 250 MG TAB PO SCH ×2 (09:02→21:13)
[2016-12-03] MEDS: MINOXIDIL 2.5 MG TAB PO SCH ×2 (09:02→21:13)
--- NOTE | 2016-12-03 09:56 | CONS ---
Date/Time of Note Date/Time of Note DATE: 12/03/16 TIME: 09:54 Assessment/Plan Assessment/Plan Additional Assessment/Plan 1. acute kidney injury due to prerenal azotemia 2. Hyponatremia due to hypovolemic hyponatremia 3. acute COPD exacerbation 4. HTN, not well controlled 5. Hypothyroidism Plan: IV levaquin- renally dose, BUN 48, Cr 1.53, Na 133 today IV solumedrol- change to Q 8 hr continue to hold lisinopril due to rising creatiine, monitor K , yesteday Hydralazine was increased to 50MG TID, BP dropped tosystolic 90s, Holding parameters for BP meds, Hold Hydralazine, Isordil might have caused low BP will follow up Consultation Date/Type/Reason Admit Date/Time Nov 29, 2016 at 17:53 Initial Consult Date 11/30/16 Type of Consultation: NEPHROLOGY Referring Provider: JONAS CALDERON MD 24 HR Interval Summary Free Text/Dictation Cr 1.53, Na slightly low no acute events Exam/Review of Systems Vital Signs Vitals Vital Signs Date Time Temp Pulse Resp B/P Pulse Ox O2 Delivery O2 Flow Rate FiO2 12/03/16 09:14 111 22 96 21 12/03/16 07:35 98.2 95/50 11/29/16 23:42 Room Air Intake and Output 12/02/16 12/02/16 12/03/16 15:00 23:00 07:00 Intake Total 890 ml 480 ml Balance 890 ml 480 ml Exam Constitutional: alert, oriented Respiratory: clear to auscultation, normal air movement Cardiovascular: nl pulses, regular rate and rhythm Gastrointestinal: nl liver, spleen, non-tender, soft Musculoskeletal: nl extremities to inspection Extremities: normal pulses Neurological: CR[employer] JUDGE II-XII intact, nl mental status, nl speech, nl strength Skin: nl turgor, rash or lesions Lymph: nl lymph nodes Results Result Diagram: 12/03/16 0545 12/03/16 0545 Results 24 hrs Laboratory Tests Test 12/03/16 05:45 White Blood Count 8.4 Red Blood Count 3.78 L Hemoglobin 11.9 L Hematocrit 33.9 L Mean Corpuscular Volume 89.7 Mean Corpuscular Hemoglobin 31.5 Mean Corpuscular Hemoglobin Concent 35.1 Red Cell Distribution Width 12.5 Platelet Count 187 # Mean Platelet Volume 11.6 H Neutrophils % 86.7 H Lymphocytes % 7.5 L Monocytes % 4.4 Eosinophils % 0.0 Basophils % 0.2 Nucleated Red Blood Cells % 0.0 Neutrophils # (Manual) 7.3 Lymphocytes # 0.6 L Monocytes # 0.4 Eosinophils # 0.0 Basophils # 0.0 Nucleated Red Blood Cells # 0.0 Sodium Level 133 L Potassium Level 4.6 Chloride Level 94 L Carbon Dioxide Level 21 Anion Gap 23 H Blood Urea Nitrogen 48 H Creatinine 1.53 H Glucose Level 143 Calcium Level 9.0 Medications Medications Current Medications Aspirin (Halfprin) 81 mg DAILY PO Last administered on 12/03/16 09:02; Admin Dose 81 MG; Start 11/30/16 at 09:00 Montelukast Sodium (Singulair) 10 mg QHS PO Last administered on 12/02/16 21: 19; Admin Dose 10 MG; Start 11/30/16 at 21:00 Naproxen (Naprosyn) 250 mg BID PO Last administered on 12/03/16 09:02; Admin Dose 250 MG; Start 11/30/16 at 09:00 Pantoprazole (Protonix Tab) 40 mg DAILY@06 PO Last administered on 12/03/16 05 :36; Admin Dose 40 MG; Start 11/30/16 at 06:00 Hydralazine HCl (Apresoline) 10 mg Q6 PRN IV ELEVATED BLOOD PRESSURE Last administered on 11/30/16 08:49; Admin Dose 10 MG; Start 11/29/16 at 21:30 Enoxaparin Sodium (Lovenox) 30 mg DAILY SC Last administered on 12/03/16 09:01 ; Admin Dose 30 MG; Start 11/30/16 at 09:00 Acetaminophen (Tylenol Tab) 650 mg Q4H PRN PO PAIN AND OR ELEVATED TEMP Last administered on 12/02/16 16:27; Admin Dose 650 MG; Start 11/30/16 at 06:47 Metoprolol Tartrate (Lopressor) 25 mg BID PO Last administered on 12/03/16 09: 02; Admin Dose 25 MG; Start 11/30/16 at 13:00 Isosorbide Dinitrate (Isordil) 10 mg TID PO Last administered on 12/03/16 09: 01; Admin Dose 10 MG; Start 11/30/16 at 14:00 Minoxidil (Loniten) 5 mg BID PO Last administered on 12/03/16 09:02; Admin Dose 5 MG; Start 12/01/16 at 21:00 Methylprednisolone Sodium Succinate (Solu-Medrol) 20 mg Q8 IV Last administered on 12/03/16 05:35; Admin Dose 20 MG; Start 12/01/16 at 22:00 Hydralazine HCl (Apresoline) 50 mg Q8 PO Last administered on 12/03/16 05:35; Admin Dose 50 MG; Start 12/02/16 at 14:00 Levofloxacin (Levaquin) 250 mg DAILY@06 PO ; Start 12/04/16 at 06:00 ARIANE CHRIS MD Dec 03, 2016 09:56
--- NOTE | 2016-12-03 11:48 | PN ---
Date/Time of Note Date/Time of Note DATE: 12/03/16 TIME: 11:47 Assessment/Plan VTE Prophylaxis VTE Prophylaxis Intervention: other Lines/Catheters IV Catheter Type (from Nrs): Saline Lock Assessment/Plan Assessment/Plan - COPD with acute exacerbation, tinea breathing treatment steroids and oxygen supplementation. - per pulmonary - Acute tracheobronchitis, continue Levaquin - Rule out acute coronary syndrome. Dr. Vazquez is following in cardiology consultation. -Acute kidney injury. Dr. Bernstein is following in nephrology consultation. - Hyperkalemia, s/p Kayexalate, continue to monitor electrolytes - Hypertension, continue metoprolol - Hypothyroidism, TSH is within normal limits, continue current dose of Synthroid Further recommendations based on clinical course. Plan of care discussed with Dr. Mcallister. Subjective 24 Hr Interval Summary Respiratory: cough Gastrointestinal: constipation, no complaints Musculoskeletal: no complaints Skin: no complaints Exam/Review of Systems Vital Signs Vitals Vital Signs Date Time Temp Pulse Resp B/P Pulse Ox O2 Delivery O2 Flow Rate FiO2 12/03/16 09:14 111 22 96 21 12/03/16 07:35 98.2 95/50 11/29/16 23:42 Room Air Intake and Output 12/02/16 12/02/16 12/03/16 15:00 23:00 07:00 Intake Total 890 ml 480 ml Balance 890 ml 480 ml Exam Constitutional: alert, oriented, well developed Respiratory: diminished breath sounds Cardiovascular: nl pulses, regular rate and rhythm Gastrointestinal: non-tender, soft Musculoskeletal: nl extremities to inspection Extremities: normal pulses Neurological: nl mental status, nl speech Results Result Diagram: 12/03/16 0545 12/03/16 0545 Results 24 hrs Laboratory Tests Test 12/03/16 05:45 White Blood Count 8.4 Red Blood Count 3.78 L Hemoglobin 11.9 L Hematocrit 33.9 L Mean Corpuscular Volume 89.7 Mean Corpuscular Hemoglobin 31.5 Mean Corpuscular Hemoglobin Concent 35.1 Red Cell Distribution Width 12.5 Platelet Count 187 # Mean Platelet Volume 11.6 H Neutrophils % 86.7 H Lymphocytes % 7.5 L Monocytes % 4.4 Eosinophils % 0.0 Basophils % 0.2 Nucleated Red Blood Cells % 0.0 Neutrophils # (Manual) 7.3 Lymphocytes # 0.6 L Monocytes # 0.4 Eosinophils # 0.0 Basophils # 0.0 Nucleated Red Blood Cells # 0.0 Sodium Level 133 L Potassium Level 4.6 Chloride Level 94 L Carbon Dioxide Level 21 Anion Gap 23 H Blood Urea Nitrogen 48 H Creatinine 1.53 H Glucose Level 143 Calcium Level 9.0 Medications Medications Current Medications Aspirin (Halfprin) 81 mg DAILY PO Last administered on 12/03/16 09:02; Admin Dose 81 MG; Start 11/30/16 at 09:00 Montelukast Sodium (Singulair) 10 mg QHS PO Last administered on 12/02/16 21: 19; Admin Dose 10 MG; Start 11/30/16 at 21:00 Naproxen (Naprosyn) 250 mg BID PO Last administered on 12/03/16 09:02; Admin Dose 250 MG; Start 11/30/16 at 09:00 Pantoprazole (Protonix Tab) 40 mg DAILY@06 PO Last administered on 12/03/16 05 :36; Admin Dose 40 MG; Start 11/30/16 at 06:00 Hydralazine HCl (Apresoline) 10 mg Q6 PRN IV ELEVATED BLOOD PRESSURE Last administered on 11/30/16 08:49; Admin Dose 10 MG; Start 11/29/16 at 21:30 Enoxaparin Sodium (Lovenox) 30 mg DAILY SC Last administered on 12/03/16 09:01 ; Admin Dose 30 MG; Start 11/30/16 at 09:00 Acetaminophen (Tylenol Tab) 650 mg Q4H PRN PO PAIN AND OR ELEVATED TEMP Last administered on 12/02/16 16:27; Admin Dose 650 MG; Start 11/30/16 at 06:47 Metoprolol Tartrate (Lopressor) 25 mg BID PO Last administered on 12/03/16 09: 02; Admin Dose 25 MG; Start 11/30/16 at 13:00 Isosorbide Dinitrate (Isordil) 10 mg TID PO Last administered on 12/03/16 09: 01; Admin Dose 10 MG; Start 11/30/16 at 14:00 Minoxidil (Loniten) 5 mg BID PO Last administered on 12/03/16 09:02; Admin Dose 5 MG; Start 12/01/16 at 21:00 Methylprednisolone Sodium Succinate (Solu-Medrol) 20 mg Q8 IV Last administered on 12/03/16 05:35; Admin Dose 20 MG; Start 12/01/16 at 22:00 Hydralazine HCl (Apresoline) 50 mg Q8 PO Last administered on 12/03/16 05:35; Admin Dose 50 MG; Start 12/02/16 at 14:00; Status Future Hold Levofloxacin (Levaquin) 250 mg DAILY@06 PO ; Start 12/04/16 at 06:00 MELVIN MARROQUIN Dec 03, 2016 11:48
[2016-12-03] MEDS: DOCUSATE SODIUM 100 MG CAP PO SCH ×2 (12:57→21:11)
[2016-12-03 14:22] VITALS: BP 125/58; RESP 18
[2016-12-03] MEDS: LACTULOSE 30ML CUP PO PRN (18:24)
[2016-12-03 20:00] VITALS: BP 169/71; RESP 20
--- NOTE | 2016-12-03 20:36 | CONS ---
Date/Time of Note Date/Time of Note DATE: 12/03/16 TIME: 20:33 Assessment/Plan Assessment/Plan Chief Complaint/Hosp Course IMPRESSION: 1. Chest pain. Assess for acute coronary syndrome, at this time only with cough.-negative trop x3/NL EF by echo this admit/ no further ongoing cp 2. Abnormal electrocardiogram, with anteroseptal Q's. Assess for acute coronary syndrome. 3. Hypertension, uncontrolled. 4. Chronic obstructive pulmonary disease exacerbation. 5. Shortness of breath. 6. Renal failure. 7. Anemia. 8. Leukocytosis. Recc: -Tele -serial ecg's -Continue asa -Continue current hydralazine with uptitration -Continue current BB/isordil -Continue abx's and f/u cx data -Continue steroids/bronchodilators Problems: Consultation Date/Type/Reason Admit Date/Time Nov 29, 2016 at 17:53 Initial Consult Date 11/30/16 Type of Consultation: cardiology Reason for Consultation Chest pain Referring Provider: JONAS CALDERON MD Exam/Review of Systems Vital Signs Vitals Vital Signs Date Time Temp Pulse Resp B/P Pulse Ox O2 Delivery O2 Flow Rate FiO2 12/03/16 20:04 80 20 98 21 12/03/16 14:22 98.5 125/58 11/29/16 23:42 Room Air Intake and Output 12/02/16 12/02/16 12/03/16 15:00 23:00 07:00 Intake Total 890 ml 480 ml Balance 890 ml 480 ml Exam Review of Systems: CONSTITUTIONAL: No fevers, chills. PULMONARY: No sob CARDIOVASCULAR: No chest pain/palpitations GASTROINTESTINAL: No nausea/vomiting. GENITOURINARY: No hematuria/dysuria. MUSCULOSKELETAL: No myagias/arthalgias. PSYCHIATRIC: The patient denies depression. NEUROLOGIC: No weakness Constitutional: alert, oriented Head: normocephalic ENMT: mucosa pink and moist Neck: jvd (8 cm water), supple Respiratory: diminished breath sounds Cardiovascular: regular rate and rhythm Gastrointestinal: non-tender, soft Musculoskeletal: muscle tone Extremities: edema (none) Neurological: other (No focal deficits) Results Result Diagram: 12/03/16 0545 12/03/16 0545 Results 24 hrs Laboratory Tests Test 12/03/16 05:45 White Blood Count 8.4 Red Blood Count 3.78 L Hemoglobin 11.9 L Hematocrit 33.9 L Mean Corpuscular Volume 89.7 Mean Corpuscular Hemoglobin 31.5 Mean Corpuscular Hemoglobin Concent 35.1 Red Cell Distribution Width 12.5 Platelet Count 187 # Mean Platelet Volume 11.6 H Neutrophils % 86.7 H Lymphocytes % 7.5 L Monocytes % 4.4 Eosinophils % 0.0 Basophils % 0.2 Nucleated Red Blood Cells % 0.0 Neutrophils # (Manual) 7.3 Lymphocytes # 0.6 L Monocytes # 0.4 Eosinophils # 0.0 Basophils # 0.0 Nucleated Red Blood Cells # 0.0 Sodium Level 133 L Potassium Level 4.6 Chloride Level 94 L Carbon Dioxide Level 21 Anion Gap 23 H Blood Urea Nitrogen 48 H Creatinine 1.53 H Glucose Level 143 Calcium Level 9.0 Medications Medications Current Medications Aspirin (Halfprin) 81 mg DAILY PO Last administered on 12/03/16 09:02; Admin Dose 81 MG; Start 11/30/16 at 09:00 Montelukast Sodium (Singulair) 10 mg QHS PO Last administered on 12/02/16 21: 19; Admin Dose 10 MG; Start 11/30/16 at 21:00 Naproxen (Naprosyn) 250 mg BID PO Last administered on 12/03/16 09:02; Admin Dose 250 MG; Start 11/30/16 at 09:00 Pantoprazole (Protonix Tab) 40 mg DAILY@06 PO Last administered on 12/03/16 05 :36; Admin Dose 40 MG; Start 11/30/16 at 06:00 Hydralazine HCl (Apresoline) 10 mg Q6 PRN IV ELEVATED BLOOD PRESSURE Last administered on 11/30/16 08:49; Admin Dose 10 MG; Start 11/29/16 at 21:30 Enoxaparin Sodium (Lovenox) 30 mg DAILY SC Last administered on 12/03/16 09:01 ; Admin Dose 30 MG; Start 11/30/16 at 09:00 Acetaminophen (Tylenol Tab) 650 mg Q4H PRN PO PAIN AND OR ELEVATED TEMP Last administered on 12/02/16 16:27; Admin Dose 650 MG; Start 11/30/16 at 06:47 Metoprolol Tartrate (Lopressor) 25 mg BID PO Last administered on 12/03/16 09: 02; Admin Dose 25 MG; Start 11/30/16 at 13:00 Isosorbide Dinitrate (Isordil) 10 mg TID PO Last administered on 12/03/16 14: 24; Admin Dose 10 MG; Start 11/30/16 at 14:00 Minoxidil (Loniten) 5 mg BID PO Last administered on 12/03/16 09:02; Admin Dose 5 MG; Start 12/01/16 at 21:00 Methylprednisolone Sodium Succinate (Solu-Medrol) 20 mg Q8 IV Last administered on 12/03/16 14:24; Admin Dose 20 MG; Start 12/01/16 at 22:00 Hydralazine HCl (Apresoline) 50 mg Q8 PO Last administered on 12/03/16 05:35; Admin Dose 50 MG; Start 12/02/16 at 14:00; Status Future Hold Levofloxacin (Levaquin) 250 mg DAILY@06 PO ; Start 12/04/16 at 06:00 Docusate Sodium (Colace) 100 mg BID PO Last administered on 12/03/16 12:57; Admin Dose 100 MG; Start 12/03/16 at 12:00 Lactulose (Enulose) 20 gm DAILY PRN PO CONSTIPATION Last administered on 18:24; Admin Dose 20 GM; Start 12/03/16 at 12:00 Guaifenesin/ Codeine Phosphate (Robitussin Ac Liquid Cup) 10 ml Q6 PRN PO COUGH ; Start 12/03/16 at 12:00 CONG DUGGAN Dec 03, 2016 20:36
[2016-12-03] MEDS: MONTELUKAST 10 MG TAB PO SCH (21:12)
[2016-12-03] MEDS: GUAIFENESIN/CODEINE 5ML CUP PO PRN (21:13)
[2016-12-03 23:20] VITALS: BP 127/56; PULSE 88
[2016-12-04] VITALS (7 sets, daily range): BP systolic 126–178; BP diastolic 59–77; PULSE 85–90; RESP 18–20
[2016-12-04] MEDS: ALBUTEROL/IPRATROPIUM (NEB) 3 ML AMP HHN SCH ×4 (01:37→20:40)
[2016-12-04] MEDS: METHYLPREDNISOLONE 40 MG INJ IV SCH ×3 (06:06→22:34)
[2016-12-04] MEDS: GUAIFENESIN/CODEINE 5ML CUP PO PRN ×2 (06:07→15:29)
[2016-12-04] MEDS: LEVOTHYROXINE 50 MCG TAB PO SCH (06:07)
[2016-12-04] MEDS: LEVOFLOXACIN 250 MG TAB PO SCH (06:07)
[2016-12-04] MEDS: PANTOPRAZOLE (EC) 40 MG TAB PO SCH (06:07)
[2016-12-04 07:13] LABS: BASOPHILS % 0.1 % (0.0-2.0); HEMATOCRIT 30.8 % (42.0-52.0); HEMOGLOBIN 10.8 g/dl (14.0-18.0); LYMPHOCYTES # 0.8 10^3/ul (0.8-2.9); MEAN CORPUSCULAR HEMOGLOBIN 31.2 pg (29.0-33.0); MEAN CORPUSCULAR HGB CONC 35.1 g/dl (32.0-37.0); MEAN PLATELET VOLUME 11.6 fl (7.4-10.4); MONOCYTE # 0.7 10^3/ul (0.3-0.9); MONOCYTES % 8.6 % (0.0-11.0); NEUTROPHILS % 78.8 % (39.0-77.0); PLATELET COUNT 181 10^3/UL (140-415); RED BLOOD COUNT 3.46 10^6/ul (4.70-6.10); RED CELL DISTRIBUTION WIDTH 12.5 % (11.5-14.5); WHITE BLOOD COUNT 7.6 10^3/ul (4.8-10.8)
[2016-12-04 07:39] LABS: CALCIUM 8.4 mg/dl (8.4-10.2); CREATININE 1.74 mg/dl (0.61-1.24); POTASSIUM 4.5 mmol/L (3.5-5.1)
[2016-12-04] MEDS: ASPIRIN (EC) 81 MG TAB PO SCH (08:03)
[2016-12-04] MEDS: LACTULOSE 30ML CUP PO PRN (08:03)
[2016-12-04] MEDS: MINOXIDIL 2.5 MG TAB PO SCH ×2 (08:04→21:20)
[2016-12-04] MEDS: METOPROLOL 25 MG TAB PO SCH ×2 (08:04→21:21)
[2016-12-04] MEDS: ENOXAPARIN 30 MG/0.3 ML SYG SC SCH (08:05)
[2016-12-04] MEDS: DOCUSATE SODIUM 100 MG CAP PO SCH ×2 (08:07→21:19)
[2016-12-04] MEDS: NAPROXEN 250 MG TAB PO SCH ×2 (09:06→21:21)
[2016-12-04] MEDS: ISOSORBIDE DINITRATE 10 MG TAB PO SCH ×3 (09:07→21:21)
--- NOTE | 2016-12-04 14:47 | CONS ---
Date/Time of Note Date/Time of Note DATE: 12/04/16 TIME: 14:46 Consult Date/Type/Reason Admit Date/Time Nov 29, 2016 at 17:53 Initial Consult Date 11/30/16 Type of Consultation: Pulm Ordering Provider: JONAS CALDERON MD Subjective Remains stable no chest pain or shortness of breath Objective Vital Signs Date Time Temp Pulse Resp B/P Pulse Ox O2 Delivery O2 Flow Rate FiO2 12/04/16 14:12 98.2 77 18 137/60 95 12/04/16 08:48 21 Intake and Output 12/03/16 12/03/16 12/04/16 15:00 23:00 07:00 Intake Total 900 ml 650 ml Balance 900 ml 650 ml Exam GENERAL: Elderly gentleman comfortable at rest no acute distress VITAL SIGNS: per chart NECK: Supple. No JVD or lymphadenopathy. CARDIAC EXAM: S1, S2. No added sounds or murmurs. CHEST: Bilateral expiratory wheezing. ABDOMEN: Soft, nontender. No guarding or rebound. EXTREMITIES: No cyanosis, clubbing or edema. NEUROLOGIC: Generalized weakness. No focal deficits. Results/Medications Result Diagram: 12/04/16 0610 12/04/16 0610 Results 24 hrs Laboratory Tests Test 12/04/16 06:10 White Blood Count 7.6 Red Blood Count 3.46 L Hemoglobin 10.8 L Hematocrit 30.8 L Mean Corpuscular Volume 89.0 Mean Corpuscular Hemoglobin 31.2 Mean Corpuscular Hemoglobin Concent 35.1 Red Cell Distribution Width 12.5 Platelet Count 181 Mean Platelet Volume 11.6 H Neutrophils % 78.8 H Lymphocytes % 11.0 L Monocytes % 8.6 Eosinophils % 0.0 Basophils % 0.1 Nucleated Red Blood Cells % 0.0 Neutrophils # (Manual) 6.0 Lymphocytes # 0.8 Monocytes # 0.7 Eosinophils # 0.0 Basophils # 0.0 Nucleated Red Blood Cells # 0.0 Sodium Level 128 L Potassium Level 4.5 Chloride Level 97 Carbon Dioxide Level 23 Anion Gap 13 # Blood Urea Nitrogen 55 H Creatinine 1.74 H Glucose Level 143 Calcium Level 8.4 Medications Current Medications Aspirin (Halfprin) 81 mg DAILY PO Last administered on 12/04/16t 08:03; Admin Dose 81 MG; Start 11/30/16 at 09:00 Montelukast Sodium (Singulair) 10 mg QHS PO Last administered on 12/03/16 21: 12; Admin Dose 10 MG; Start 11/30/16 at 21:00 Naproxen (Naprosyn) 250 mg BID PO Last administered on 12/04/16 09:06; Admin Dose 250 MG; Start 11/30/16 at 09:00 Pantoprazole (Protonix Tab) 40 mg DAILY@06 PO Last administered on 12/04/16 06: 07; Admin Dose 40 MG; Start 11/30/16 at 06:00 Hydralazine HCl (Apresoline) 10 mg Q6 PRN IV ELEVATED BLOOD PRESSURE Last administered on 11/30/16 08:49; Admin Dose 10 MG; Start 11/29/16 at 21:30 Enoxaparin Sodium (Lovenox) 30 mg DAILY SC Last administered on 12/04/16 08:05 ; Admin Dose 30 MG; Start 11/30/16 at 09:00 Acetaminophen (Tylenol Tab) 650 mg Q4H PRN PO PAIN AND OR ELEVATED TEMP Last administered on 12/02/16 16:27; Admin Dose 650 MG; Start 11/30/16 at 06:47 Metoprolol Tartrate (Lopressor) 25 mg BID PO Last administered on 12/04/16 08: 04; Admin Dose 25 MG; Start 11/30/16 at 13:00 Isosorbide Dinitrate (Isordil) 10 mg TID PO Last administered on 12/04/16 12:15 ; Admin Dose 10 MG; Start 11/30/16 at 14:00 Minoxidil (Loniten) 5 mg BID PO Last administered on 12/04/16 08:04; Admin Dose 5 MG; Start 12/01/16 at 21:00 Methylprednisolone Sodium Succinate (Solu-Medrol) 20 mg Q8 IV Last administered on 12/04/16 06:06; Admin Dose 20 MG; Start 12/01/16 at 22:00 Hydralazine HCl (Apresoline) 50 mg Q8 PO Last administered on 12/03/16 05:35; Admin Dose 50 MG; Start 12/02/16 at 14:00; Status Future Hold Levofloxacin (Levaquin) 250 mg DAILY@06 PO Last administered on 12/04/16 06:07 ; Admin Dose 250 MG; Start 12/04/16 at 06:00 Docusate Sodium (Colace) 100 mg BID PO Last administered on 12/04/16 08:07; Admin Dose 100 MG; Start 12/03/16 at 12:00 Lactulose (Enulose) 20 gm DAILY PRN PO CONSTIPATION Last administered on 08:03; Admin Dose 20 GM; Start 12/03/16 at 12:00 Guaifenesin/ Codeine Phosphate (Robitussin Ac Liquid Cup) 10 ml Q6 PRN PO COUGH Last administered on 12/04/16 06:07; Admin Dose 10 ML; Start 12/03/16 at 12:00 Assessment/Plan Chief Complaint/Hosp Course Assessment 1. Acute tracheobronchitis improved. 2. Hypoxemic respiratory distress improved. 3. History of hypothyroidism 4. Mild renal insufficiency 5. Doubt ACS. Plan 1. Continue bronchodilators 2. Continue steroid taper 3. Continue to encourage out of bed dc ok from pulm standpoint outpatient Pulm and PFTs. Problems: [facility] DONG [facility] Dec 04, 2016 14:47
[2016-12-04] MEDS ORDERED: ALBUMIN HUMAN 25% 100 ML IV ONE (16:30)
[2016-12-04] MEDS ORDERED: SOD CHLORIDE 0.9% 1,000 ML IV ONE (16:30)
--- NOTE | 2016-12-04 16:31 | CONS ---
Date/Time of Note Date/Time of Note DATE: 12/04/16 TIME: 16:28 Assessment/Plan Assessment/Plan Additional Assessment/Plan 1. acute kidney injury due to prerenal azotemia 2. Hyponatremia due to hypovolemic hyponatremia 3. acute COPD exacerbation 4. HTN, not well controlled 5. Hypothyroidism Plan: IV levaquin- renally dose, BUN 55, Cr 1.74, Na dropped to 127 today- will give Albumin 25% 100ml IV x 1 followed by NS at 50 cc/hr x 1 liter then stop IV solumedrol- change to Q 8 hr continue to hold lisinopril due to rising creatiine, monitor K , now BP more stable today will follow up Consultation Date/Type/Reason Admit Date/Time Nov 29, 2016 at 17:53 Initial Consult Date 11/30/16 Type of Consultation: NEPHROLOGY Referring Provider: JONAS CALDERON MD Exam/Review of Systems Vital Signs Vitals Vital Signs Date Time Temp Pulse Resp B/P Pulse Ox O2 Delivery O2 Flow Rate FiO2 12/04/16 15:02 89 18 98 21 12/04/16 14:12 98.2 137/60 Intake and Output 12/03/16 12/03/16 12/04/16 15:00 23:00 07:00 Intake Total 900 ml 650 ml Balance 900 ml 650 ml Exam Constitutional: alert, oriented Respiratory: clear to auscultation, normal air movement Cardiovascular: nl pulses, regular rate and rhythm Gastrointestinal: nl liver, spleen, non-tender, soft Musculoskeletal: nl extremities to inspection Extremities: normal pulses Neurological: ACID DIPPER II-XII intact, nl mental status, nl speech, nl strength Skin: nl turgor, rash or lesions Lymph: nl lymph nodes Results Result Diagram: 12/04/16 0610 12/04/16 0610 Results 24 hrs Laboratory Tests Test 12/04/16 06:10 White Blood Count 7.6 Red Blood Count 3.46 L Hemoglobin 10.8 L Hematocrit 30.8 L Mean Corpuscular Volume 89.0 Mean Corpuscular Hemoglobin 31.2 Mean Corpuscular Hemoglobin Concent 35.1 Red Cell Distribution Width 12.5 Platelet Count 181 Mean Platelet Volume 11.6 H Neutrophils % 78.8 H Lymphocytes % 11.0 L Monocytes % 8.6 Eosinophils % 0.0 Basophils % 0.1 Nucleated Red Blood Cells % 0.0 Neutrophils # (Manual) 6.0 Lymphocytes # 0.8 Monocytes # 0.7 Eosinophils # 0.0 Basophils # 0.0 Nucleated Red Blood Cells # 0.0 Sodium Level 128 L Potassium Level 4.5 Chloride Level 97 Carbon Dioxide Level 23 Anion Gap 13 # Blood Urea Nitrogen 55 H Creatinine 1.74 H Glucose Level 143 Calcium Level 8.4 Medications Medications Current Medications Aspirin (Halfprin) 81 mg DAILY PO Last administered on 12/04/16 08:03; Admin Dose 81 MG; Start 11/30/16 at 09:00 Montelukast Sodium (Singulair) 10 mg QHS PO Last administered on 12/03/16 21: 12; Admin Dose 10 MG; Start 11/30/16 at 21:00 Naproxen (Naprosyn) 250 mg BID PO Last administered on 12/04/16 09:06; Admin Dose 250 MG; Start 11/30/16 at 09:00 Pantoprazole (Protonix Tab) 40 mg DAILY@06 PO Last administered on 12/04/16 06: 07; Admin Dose 40 MG; Start 11/30/16 at 06:00 Hydralazine HCl (Apresoline) 10 mg Q6 PRN IV ELEVATED BLOOD PRESSURE Last administered on 11/30/16 08:49; Admin Dose 10 MG; Start 11/29/16 at 21:30 Enoxaparin Sodium (Lovenox) 30 mg DAILY SC Last administered on 12/04/16 08:05 ; Admin Dose 30 MG; Start 11/30/16 at 09:00 Acetaminophen (Tylenol Tab) 650 mg Q4H PRN PO PAIN AND OR ELEVATED TEMP Last administered on 12/02/16 16:27; Admin Dose 650 MG; Start 11/30/16 at 06:47 Metoprolol Tartrate (Lopressor) 25 mg BID PO Last administered on 12/04/16 08: 04; Admin Dose 25 MG; Start 11/30/16 at 13:00 Isosorbide Dinitrate (Isordil) 10 mg TID PO Last administered on 12/04/16 12:15 ; Admin Dose 10 MG; Start 11/30/16 at 14:00 Minoxidil (Loniten) 5 mg BID PO Last administered on 12/04/16 08:04; Admin Dose 5 MG; Start 12/01/16 at 21:00 Methylprednisolone Sodium Succinate (Solu-Medrol) 20 mg Q8 IV Last administered on 12/04/16 15:00; Admin Dose 20 MG; Start 12/01/16 at 22:00 Hydralazine HCl (Apresoline) 50 mg Q8 PO Last administered on 12/03/16 05:35; Admin Dose 50 MG; Start 12/02/16 at 14:00; Status Future Hold Levofloxacin (Levaquin) 250 mg DAILY@06 PO Last administered on 12/04/16 06:07 ; Admin Dose 250 MG; Start 12/04/16 at 06:00 Docusate Sodium (Colace) 100 mg BID PO Last administered on 12/04/16 08:07; Admin Dose 100 MG; Start 12/03/16 at 12:00 Lactulose (Enulose) 20 gm DAILY PRN PO CONSTIPATION Last administered on 08:03; Admin Dose 20 GM; Start 12/03/16 at 12:00 Guaifenesin/ Codeine Phosphate (Robitussin Ac Liquid Cup) 10 ml Q6 PRN PO COUGH Last administered on 12/04/16 15:29; Admin Dose 10 ML; Start 12/03/16 at 12:00 ARIANE CHRIS MD Dec 04, 2016 16:31
--- NOTE | 2016-12-04 17:33 | CONS ---
Date/Time of Note Date/Time of Note DATE: 12/04/16 TIME: 17:29 Assessment/Plan Assessment/Plan Chief Complaint/Hosp Course IMPRESSION: 1. Chest pain. Assess for acute coronary syndrome, at this time only with cough and continues to be that why.-negative trop x3/NL EF by echo this admit/ no further ongoing cp 2. Abnormal electrocardiogram, with anteroseptal Q's. Assess for acute coronary syndrome. 3. Hypertension, uncontrolled. 4. Chronic obstructive pulmonary disease exacerbation. 5. Shortness of breath. 6. Renal failure. 7. Anemia. 8. Leukocytosis. Recc: -Now on med-surg -Continue asa -Continue current minoxdil for now -Continue current isordil and increase BB kushal improve BP control -Continue abx's and f/u cx data -Continue steroids/bronchodilators Problems: Consultation Date/Type/Reason Admit Date/Time Nov 29, 2016 at 17:53 Initial Consult Date 11/30/16 Type of Consultation: cardiology Reason for Consultation chest pain Referring Provider: JONAS CALDERON MD Exam/Review of Systems Vital Signs Vitals Vital Signs Date Time Temp Pulse Resp B/P Pulse Ox O2 Delivery O2 Flow Rate FiO2 12/04/16 15:02 89 18 98 21 12/04/16 14:12 98.2 137/60 Intake and Output 12/03/16 12/03/16 12/04/16 15:00 23:00 07:00 Intake Total 900 ml 650 ml Balance 900 ml 650 ml Exam Review of Systems: CONSTITUTIONAL: No fevers, chills. PULMONARY: No sob CARDIOVASCULAR: No chest pain/palpitations GASTROINTESTINAL: No nausea/vomiting. GENITOURINARY: No hematuria/dysuria. MUSCULOSKELETAL: No myagias/arthalgias. PSYCHIATRIC: The patient denies depression. NEUROLOGIC: No weakness Constitutional: alert Psych: no complaints Head: normocephalic ENMT: mucosa pink and moist Neck: jvd (8 cm water), supple Respiratory: other (mild exp wheezing) Cardiovascular: regular rate and rhythm Gastrointestinal: non-tender, soft Musculoskeletal: muscle tone (normal) Extremities: edema (none) Neurological: other (No focal deficits) Results Result Diagram: 12/04/16 0610 12/04/16 0610 Results 24 hrs Laboratory Tests Test 12/04/16 06:10 White Blood Count 7.6 Red Blood Count 3.46 L Hemoglobin 10.8 L Hematocrit 30.8 L Mean Corpuscular Volume 89.0 Mean Corpuscular Hemoglobin 31.2 Mean Corpuscular Hemoglobin Concent 35.1 Red Cell Distribution Width 12.5 Platelet Count 181 Mean Platelet Volume 11.6 H Neutrophils % 78.8 H Lymphocytes % 11.0 L Monocytes % 8.6 Eosinophils % 0.0 Basophils % 0.1 Nucleated Red Blood Cells % 0.0 Neutrophils # (Manual) 6.0 Lymphocytes # 0.8 Monocytes # 0.7 Eosinophils # 0.0 Basophils # 0.0 Nucleated Red Blood Cells # 0.0 Sodium Level 128 L Potassium Level 4.5 Chloride Level 97 Carbon Dioxide Level 23 Anion Gap 13 # Blood Urea Nitrogen 55 H Creatinine 1.74 H Glucose Level 143 Calcium Level 8.4 Medications Medications Current Medications Aspirin (Halfprin) 81 mg DAILY PO Last administered on 12/04/16 08:03; Admin Dose 81 MG; Start 11/30/16 at 09:00 Montelukast Sodium (Singulair) 10 mg QHS PO Last administered on 12/03/16 21: 12; Admin Dose 10 MG; Start 11/30/16 at 21:00 Naproxen (Naprosyn) 250 mg BID PO Last administered on 12/04/16 09:06; Admin Dose 250 MG; Start 11/30/16 at 09:00 Pantoprazole (Protonix Tab) 40 mg DAILY@06 PO Last administered on 12/04/16 06: 07; Admin Dose 40 MG; Start 11/30/16 at 06:00 Hydralazine HCl (Apresoline) 10 mg Q6 PRN IV ELEVATED BLOOD PRESSURE Last administered on 11/30/16 08:49; Admin Dose 10 MG; Start 11/29/16 at 21:30 Enoxaparin Sodium (Lovenox) 30 mg DAILY SC Last administered on 12/04/16 08:05 ; Admin Dose 30 MG; Start 11/30/16 at 09:00 Acetaminophen (Tylenol Tab) 650 mg Q4H PRN PO PAIN AND OR ELEVATED TEMP Last administered on 12/02/16 16:27; Admin Dose 650 MG; Start 11/30/16 at 06:47 Metoprolol Tartrate (Lopressor) 25 mg BID PO Last administered on 12/04/16 08: 04; Admin Dose 25 MG; Start 11/30/16 at 13:00 Isosorbide Dinitrate (Isordil) 10 mg TID PO Last administered on 12/04/16 12:15 ; Admin Dose 10 MG; Start 11/30/16 at 14:00 Minoxidil (Loniten) 5 mg BID PO Last administered on 12/04/16 08:04; Admin Dose 5 MG; Start 12/01/16 at 21:00 Methylprednisolone Sodium Succinate (Solu-Medrol) 20 mg Q8 IV Last administered on 12/04/16 15:00; Admin Dose 20 MG; Start 12/01/16 at 22:00 Hydralazine HCl (Apresoline) 50 mg Q8 PO Last administered on 12/03/16 05:35; Admin Dose 50 MG; Start 12/02/16 at 14:00; Status Future Hold Levofloxacin (Levaquin) 250 mg DAILY@06 PO Last administered on 12/04/16 06:07 ; Admin Dose 250 MG; Start 12/04/16 at 06:00 Docusate Sodium (Colace) 100 mg BID PO Last administered on 12/04/16 08:07; Admin Dose 100 MG; Start 12/03/16 at 12:00 Lactulose (Enulose) 20 gm DAILY PRN PO CONSTIPATION Last administered on 08:03; Admin Dose 20 GM; Start 12/03/16 at 12:00 Guaifenesin/ Codeine Phosphate 10 ml 10 ml Q6 PRN PO COUGH Last administered on 12/04/16 15:29; Admin Dose 10 ML; Start 12/03/16 at 12:00 Sodium Chloride (NS) 1,000 ml @ 50 mls/hr Q20H ONCE IV ; Start 12/04/16 at 16:30 ; Stop 12/05/16 at 12:29 CONG DUGGAN Dec 04, 2016 17:33
--- NOTE | 2016-12-04 18:32 | PDOCDIS ---
Discharge Instructions CONDITION Patient Condition: Stable HOME CARE INSTRUCTIONS: Special Diet: renal, LC, LF ACTIVITY: Activity Restrictions: Slowly Increase Activity Rest between Activity Avoid heavy lifting MELVIN MARROQUIN Dec 04, 2016 18:31
--- NOTE | 2016-12-04 18:42 | PN ---
Date/Time of Note Date/Time of Note DATE: 12/04/16 TIME: 18:40 Assessment/Plan VTE Prophylaxis VTE Prophylaxis Intervention: other Lines/Catheters IV Catheter Type (from Nrs): Saline Lock Assessment/Plan Assessment/Plan - COPD with acute exacerbation, tinea breathing treatment steroids and oxygen supplementation. - per pulmonary - Acute tracheobronchitis, continue Levaquin - Rule out acute coronary syndrome. Dr. Vazquez is following in cardiology consultation. -Acute kidney injury- Creatinine is elevation - Dr. Bernstein is following in nephrology consultation. - Hyperkalemia, s/p Kayexalate, continue to monitor electrolytes - Hypertension, continue metoprolol - Hypothyroidism, TSH is within normal limits, continue current dose of Synthroid Further recommendations based on clinical course. Plan of care discussed with Dr. Mcallister. Subjective 24 Hr Interval Summary Respiratory: no complaints Cardiovascular: no complaints Gastrointestinal: no complaints Musculoskeletal: no complaints Neurologic: no complaints Exam/Review of Systems Vital Signs Vitals Vital Signs Date Time Temp Pulse Resp B/P Pulse Ox O2 Delivery O2 Flow Rate FiO2 12/04/16 15:02 89 18 98 21 12/04/16 14:12 98.2 137/60 Intake and Output 12/03/16 12/03/16 12/04/16 14:59 22:59 06:59 Intake Total 900 ml 650 ml Balance 900 ml 650 ml Exam Constitutional: alert, well developed Cardiovascular: regular rate and rhythm Gastrointestinal: non-tender, soft Musculoskeletal: nl extremities to inspection Neurological: nl mental status, nl speech Results Result Diagram: 12/04/16 0610 12/04/16 0610 Results 24 hrs Laboratory Tests Test 12/04/16 06:10 White Blood Count 7.6 Red Blood Count 3.46 L Hemoglobin 10.8 L Hematocrit 30.8 L Mean Corpuscular Volume 89.0 Mean Corpuscular Hemoglobin 31.2 Mean Corpuscular Hemoglobin Concent 35.1 Red Cell Distribution Width 12.5 Platelet Count 181 Mean Platelet Volume 11.6 H Neutrophils % 78.8 H Lymphocytes % 11.0 L Monocytes % 8.6 Eosinophils % 0.0 Basophils % 0.1 Nucleated Red Blood Cells % 0.0 Neutrophils # (Manual) 6.0 Lymphocytes # 0.8 Monocytes # 0.7 Eosinophils # 0.0 Basophils # 0.0 Nucleated Red Blood Cells # 0.0 Sodium Level 128 L Potassium Level 4.5 Chloride Level 97 Carbon Dioxide Level 23 Anion Gap 13 # Blood Urea Nitrogen 55 H Creatinine 1.74 H Glucose Level 143 Calcium Level 8.4 Medications Medications Current Medications Aspirin (Halfprin) 81 mg DAILY PO Last administered on 12/04/16 08:03; Admin Dose 81 MG; Start 11/30/16 at 09:00 Montelukast Sodium (Singulair) 10 mg QHS PO Last administered on 12/03/16 21: 12; Admin Dose 10 MG; Start 11/30/16 at 21:00 Naproxen (Naprosyn) 250 mg BID PO Last administered on 12/04/16 09:06; Admin Dose 250 MG; Start 11/30/16 at 09:00 Pantoprazole (Protonix Tab) 40 mg DAILY@06 PO Last administered on 12/04/16 06: 07; Admin Dose 40 MG; Start 11/30/16 at 06:00 Hydralazine HCl (Apresoline) 10 mg Q6 PRN IV ELEVATED BLOOD PRESSURE Last administered on 11/30/16 08:49; Admin Dose 10 MG; Start 11/29/16 at 21:30 Enoxaparin Sodium (Lovenox) 30 mg DAILY SC Last administered on 12/04/16 08:05 ; Admin Dose 30 MG; Start 11/30/16 at 09:00 Acetaminophen (Tylenol Tab) 650 mg Q4H PRN PO PAIN AND OR ELEVATED TEMP Last administered on 12/02/16 16:27; Admin Dose 650 MG; Start 11/30/16 at 06:47 Isosorbide Dinitrate (Isordil) 10 mg TID PO Last administered on 12/04/16 12:15 ; Admin Dose 10 MG; Start 11/30/16 at 14:00 Minoxidil (Loniten) 5 mg BID PO Last administered on 12/04/16 08:04; Admin Dose 5 MG; Start 12/01/16 at 21:00 Methylprednisolone Sodium Succinate (Solu-Medrol) 20 mg Q8 IV Last administered on 12/04/16 15:00; Admin Dose 20 MG; Start 12/01/16 at 22:00 Hydralazine HCl (Apresoline) 50 mg Q8 PO Last administered on 12/03/16 05:35; Admin Dose 50 MG; Start 12/02/16 at 14:00; Status Future Hold Levofloxacin (Levaquin) 250 mg DAILY@06 PO Last administered on 12/04/16 06:07 ; Admin Dose 250 MG; Start 12/04/16 at 06:00 Docusate Sodium (Colace) 100 mg BID PO Last administered on 12/04/16 08:07; Admin Dose 100 MG; Start 12/03/16 at 12:00 Lactulose (Enulose) 20 gm DAILY PRN PO CONSTIPATION Last administered on 08:03; Admin Dose 20 GM; Start 12/03/16 at 12:00 Guaifenesin/ Codeine Phosphate 10 ml 10 ml Q6 PRN PO COUGH Last administered on 12/04/16 15:29; Admin Dose 10 ML; Start 12/03/16 at 12:00 Sodium Chloride (NS) 1,000 ml @ 50 mls/hr Q20H ONCE IV ; Start 12/04/16 at 16:30 ; Stop 12/05/16 at 12:29 Metoprolol Tartrate (Lopressor) 50 mg BID PO ; Start 12/04/16 at 21:00 MELVIN MARROQUIN Dec 04, 2016 18:42
--- NOTE | 2016-12-04 18:57 | RADRPT ---
PROCEDURE: X-ray Chest. CLINICAL INDICATION: Pulmonary vascular congestion. TECHNIQUE: Single view chest x-ray. COMPARISON: Exam dated 11/29/2016. FINDINGS: There are atherosclerotic changes of the aorta. The cardiomediastinal silhouette is withi n normal limits. There is left perihilar subsegmental atelectasis. The lungs are otherwise clear wit hout focal consolidation, effusion, or pneumothorax. There are no acute osseous abnormalities. IMPRESSION: 1. No acute cardiopulmonary abnormality. 2. Vascular calcifications consistent with atherosclerosis. RPTAT: HLBP .Khang Haywood MD, MD Date Time Electronically viewed and signed by .Khang Haywood MD, MD on 12/04/2016 18:56 .P/
[2016-12-04] MEDS: MONTELUKAST 10 MG TAB PO SCH (21:21)
[2016-12-05] MEDS: ALBUTEROL/IPRATROPIUM (NEB) 3 ML AMP HHN SCH ×4 (01:49→20:05)
[2016-12-05 02:00] VITALS: BP 145/63; RESP 19
[2016-12-05] MEDS: LEVOFLOXACIN 250 MG TAB PO SCH (06:03)
[2016-12-05] MEDS: METHYLPREDNISOLONE 40 MG INJ IV SCH ×3 (06:03→21:08)
[2016-12-05] MEDS: PANTOPRAZOLE (EC) 40 MG TAB PO SCH (06:04)
[2016-12-05] MEDS: LEVOTHYROXINE 50 MCG TAB PO SCH (06:05)
[2016-12-05 06:54] LABS: BASOPHILS % 0.1 % (0.0-2.0); HEMOGLOBIN 11.3 g/dl (14.0-18.0); LYMPHOCYTES # 0.8 10^3/ul (0.8-2.9); LYMPHOCYTES % 10.3 % (15.0-51.0); MEAN CORPUSCULAR HEMOGLOBIN 31.9 pg (29.0-33.0); MEAN CORPUSCULAR HGB CONC 35.3 g/dl (32.0-37.0); MEAN CORPUSCULAR VOLUME 90.4 fl (82.0-101.0); MEAN PLATELET VOLUME 11.4 fl (7.4-10.4); MONOCYTE # 0.5 10^3/ul (0.3-0.9); MONOCYTES % 6.8 % (0.0-11.0); NEUTROPHILS % 80.3 % (39.0-77.0); PLATELET COUNT 188 10^3/UL (140-415); RED BLOOD COUNT 3.54 10^6/ul (4.70-6.10); RED CELL DISTRIBUTION WIDTH 12.3 % (11.5-14.5); WHITE BLOOD COUNT 7.6 10^3/ul (4.8-10.8)
[2016-12-05 07:09] LABS: CREATININE 1.8 mg/dl (0.61-1.24); POTASSIUM 5.6 mmol/L (3.5-5.1)
[2016-12-05 08:12] VITALS: BP 147/65; RESP 16
[2016-12-05] MEDS: NAPROXEN 250 MG TAB PO SCH ×2 (09:19→21:07)
[2016-12-05] MEDS: METOPROLOL 25 MG TAB PO SCH ×2 (09:19→21:08)
[2016-12-05] MEDS: ASPIRIN (EC) 81 MG TAB PO SCH (09:19)
[2016-12-05] MEDS: DOCUSATE SODIUM 100 MG CAP PO SCH ×2 (09:19→21:07)
[2016-12-05] MEDS: ISOSORBIDE DINITRATE 10 MG TAB PO SCH ×3 (09:19→21:08)
[2016-12-05] MEDS: MINOXIDIL 2.5 MG TAB PO SCH ×2 (09:20→21:07)
[2016-12-05] MEDS: ENOXAPARIN 30 MG/0.3 ML SYG SC SCH (09:20)
--- NOTE | 2016-12-05 11:35 | CONS ---
Date/Time of Note Date/Time of Note DATE: 12/05/16 TIME: 11:34 Consult Date/Type/Reason Admit Date/Time Nov 29, 2016 at 17:53 Initial Consult Date 11/30/16 Type of Consultation: Pulmonary Ordering Provider: JONAS CALDERON MD Subjective Stable this morning. Objective Vital Signs Date Time Temp Pulse Resp B/P Pulse Ox O2 Delivery O2 Flow Rate FiO2 12/05/16 08:12 98.0 72 16 147/65 94 12/05/16 08:02 21 Intake and Output 12/04/16 12/04/16 12/05/16 15:00 23:00 07:00 Intake Total 675 ml 880 ml Output Total 1050 ml Balance 675 ml -170 ml Exam Exam GENERAL: Elderly gentleman comfortable at rest no acute distress VITAL SIGNS: per chart NECK: Supple. No JVD or lymphadenopathy. CARDIAC EXAM: S1, S2. No added sounds or murmurs. CHEST: Bilateral expiratory wheezing. ABDOMEN: Soft, nontender. No guarding or rebound. EXTREMITIES: No cyanosis, clubbing or edema. NEUROLOGIC: Generalized weakness. No focal deficits. Results/Medications Result Diagram: 12/05/16 0548 12/05/16 0548 Results 24 hrs Laboratory Tests Test 12/05/16 05:48 White Blood Count 7.6 Red Blood Count 3.54 L Hemoglobin 11.3 L Hematocrit 32.0 L Mean Corpuscular Volume 90.4 Mean Corpuscular Hemoglobin 31.9 Mean Corpuscular Hemoglobin Concent 35.3 Red Cell Distribution Width 12.3 Platelet Count 188 Mean Platelet Volume 11.4 H Neutrophils % 80.3 H Lymphocytes % 10.3 L Monocytes % 6.8 Eosinophils % 0.0 Basophils % 0.1 Nucleated Red Blood Cells % 0.0 Neutrophils # (Manual) 6.1 Lymphocytes # 0.8 Monocytes # 0.5 Eosinophils # 0.0 Basophils # 0.0 Nucleated Red Blood Cells # 0.0 Sodium Level 133 L Potassium Level 5.6 H Chloride Level 101 Carbon Dioxide Level 22 Anion Gap 16 Blood Urea Nitrogen 58 H Creatinine 1.80 H Glucose Level 121 Calcium Level 9.0 B-Type Natriuretic Peptide 1010 H Medications Current Medications Aspirin (Halfprin) 81 mg DAILY PO Last administered on 12/05/16t 09:19; Admin Dose 81 MG; Start 11/30/16 at 09:00 Montelukast Sodium (Singulair) 10 mg QHS PO Last administered on 12/04/16 21:21 ; Admin Dose 10 MG; Start 11/30/16 at 21:00 Naproxen (Naprosyn) 250 mg BID PO Last administered on 12/05/16 09:19; Admin Dose 250 MG; Start 11/30/16 at 09:00 Pantoprazole (Protonix Tab) 40 mg DAILY@06 PO Last administered on 12/05/16 06: 04; Admin Dose 40 MG; Start 11/30/16 at 06:00 Hydralazine HCl (Apresoline) 10 mg Q6 PRN IV ELEVATED BLOOD PRESSURE Last administered on 11/30/16 08:49; Admin Dose 10 MG; Start 11/29/16 at 21:30 Enoxaparin Sodium (Lovenox) 30 mg DAILY SC Last administered on 12/05/16 09:20 ; Admin Dose 30 MG; Start 11/30/16 at 09:00 Acetaminophen (Tylenol Tab) 650 mg Q4H PRN PO PAIN AND OR ELEVATED TEMP Last administered on 12/02/16 16:27; Admin Dose 650 MG; Start 11/30/16 at 06:47 Isosorbide Dinitrate (Isordil) 10 mg TID PO Last administered on 12/05/16 09:19 ; Admin Dose 10 MG; Start 11/30/16 at 14:00 Minoxidil (Loniten) 5 mg BID PO Last administered on 12/05/16 09:20; Admin Dose 5 MG; Start 12/01/16 at 21:00 Methylprednisolone Sodium Succinate (Solu-Medrol) 20 mg Q8 IV Last administered on 12/05/16 06:03; Admin Dose 20 MG; Start 12/01/16 at 22:00 Hydralazine HCl (Apresoline) 50 mg Q8 PO Last administered on 12/03/16 05:35; Admin Dose 50 MG; Start 12/02/16 at 14:00; Status Future Hold Levofloxacin (Levaquin) 250 mg DAILY@06 PO Last administered on 12/05/16 06:03 ; Admin Dose 250 MG; Start 12/04/16 at 06:00 Docusate Sodium (Colace) 100 mg BID PO Last administered on 12/05/16 09:19; Admin Dose 100 MG; Start 12/03/16 at 12:00 Lactulose (Enulose) 20 gm DAILY PRN PO CONSTIPATION Last administered on 08:03; Admin Dose 20 GM; Start 12/03/16 at 12:00 Guaifenesin/ Codeine Phosphate 10 ml 10 ml Q6 PRN PO COUGH Last administered on 12/04/16 15:29; Admin Dose 10 ML; Start 12/03/16 at 12:00 Sodium Chloride (NS) 1,000 ml @ 50 mls/hr Q20H ONCE IV Last administered on 21:23; Admin Dose 50 MLS/HR; Start 12/04/16 at 16:30; Stop 12/05/16 at 12: 29 Metoprolol Tartrate (Lopressor) 50 mg BID PO Last administered on 12/05/16 09: 19; Admin Dose 50 MG; Start 12/04/16 at 21:00 Assessment/Plan Chief Complaint/Hosp Course Assessment 1. Acute tracheobronchitis improved. 2. Hypoxemic respiratory distress improved. 3. History of hypothyroidism 4. Mild renal insufficiency 5. Doubt ACS. 6. Hyperkalemia Plan 1. Continue bronchodilators 2. Continue steroid taper 3. Continue to encourage out of bed 4. K per pmd Problems: [facility], [facility] Dec 05, 2016 11:35
--- NOTE | 2016-12-05 11:41 | PN ---
Date/Time of Note Date/Time of Note DATE: 12/05/16 TIME: 11:41 Assessment/Plan VTE Prophylaxis VTE Prophylaxis Intervention: other Lines/Catheters IV Catheter Type (from [facility], [place]): Saline Lock Assessment/Plan Chief Complaint/Hosp Course - COPD with acute exacerbation, tinea breathing treatment steroids and oxygen supplementation. - per pulmonary - Acute tracheobronchitis, continue Levaquin - Rule out acute coronary syndrome. Dr. Vazquez is following in cardiology consultation. -Acute kidney injury- Creatinine is elevation - Dr. Bernstein is following in nephrology consultation. - Hyperkalemia, s/p Kayexalate, continue to monitor electrolytes - Hypertension, continue metoprolol - Hypothyroidism, TSH is within normal limits, continue current dose of Synthroid Problems: Subjective 24 Hr Interval Summary Free Text/Dictation Patient has no complaints Exam/Review of Systems Vital Signs Vitals Vital Signs Date Time Temp Pulse Resp B/P Pulse Ox O2 Delivery O2 Flow Rate FiO2 12/05/16 08:12 98.0 72 16 147/65 94 12/05/16 08:02 21 Intake and Output 12/04/16 12/04/16 12/05/16 14:59 22:59 06:59 Intake Total 675 ml 880 ml Output Total 1050 ml Balance 675 ml -170 ml Exam Constitutional: well developed Head: atraumatic, normocephalic Neck: supple Respiratory: diminished breath sounds Cardiovascular: regular rate and rhythm Gastrointestinal: non-tender, soft Extremities: normal pulses Results Result Diagram: 12/05/16 0548 12/05/16 0548 Results 24 hrs Laboratory Tests Test 12/05/16 05:48 White Blood Count 7.6 Red Blood Count 3.54 L Hemoglobin 11.3 L Hematocrit 32.0 L Mean Corpuscular Volume 90.4 Mean Corpuscular Hemoglobin 31.9 Mean Corpuscular Hemoglobin Concent 35.3 Red Cell Distribution Width 12.3 Platelet Count 188 Mean Platelet Volume 11.4 H Neutrophils % 80.3 H Lymphocytes % 10.3 L Monocytes % 6.8 Eosinophils % 0.0 Basophils % 0.1 Nucleated Red Blood Cells % 0.0 Neutrophils # (Manual) 6.1 Lymphocytes # 0.8 Monocytes # 0.5 Eosinophils # 0.0 Basophils # 0.0 Nucleated Red Blood Cells # 0.0 Sodium Level 133 L Potassium Level 5.6 H Chloride Level 101 Carbon Dioxide Level 22 Anion Gap 16 Blood Urea Nitrogen 58 H Creatinine 1.80 H Glucose Level 121 Calcium Level 9.0 B-Type Natriuretic Peptide 1010 H Medications Medications Current Medications Aspirin (Halfprin) 81 mg DAILY PO Last administered on 12/05/16 09:19; Admin Dose 81 MG; Start 11/30/16 at 09:00 Montelukast Sodium (Singulair) 10 mg QHS PO Last administered on 12/04/16 21:21 ; Admin Dose 10 MG; Start 11/30/16 at 21:00 Naproxen (Naprosyn) 250 mg BID PO Last administered on 12/05/16 09:19; Admin Dose 250 MG; Start 11/30/16 at 09:00 Pantoprazole (Protonix Tab) 40 mg DAILY@06 PO Last administered on 12/05/16 06: 04; Admin Dose 40 MG; Start 11/30/16 at 06:00 Hydralazine HCl (Apresoline) 10 mg Q6 PRN IV ELEVATED BLOOD PRESSURE Last administered on 11/30/16 08:49; Admin Dose 10 MG; Start 11/29/16 at 21:30 Enoxaparin Sodium (Lovenox) 30 mg DAILY SC Last administered on 12/05/16 09:20 ; Admin Dose 30 MG; Start 11/30/16 at 09:00 Acetaminophen (Tylenol Tab) 650 mg Q4H PRN PO PAIN AND OR ELEVATED TEMP Last administered on 12/02/16 16:27; Admin Dose 650 MG; Start 11/30/16 at 06:47 Isosorbide Dinitrate (Isordil) 10 mg TID PO Last administered on 12/05/16 09:19 ; Admin Dose 10 MG; Start 11/30/16 at 14:00 Minoxidil (Loniten) 5 mg BID PO Last administered on 12/05/16 09:20; Admin Dose 5 MG; Start 12/01/16 at 21:00 Methylprednisolone Sodium Succinate (Solu-Medrol) 20 mg Q8 IV Last administered on 12/05/16 06:03; Admin Dose 20 MG; Start 12/01/16 at 22:00 Hydralazine HCl (Apresoline) 50 mg Q8 PO Last administered on 12/03/16 05:35; Admin Dose 50 MG; Start 12/02/16 at 14:00; Status Future Hold Levofloxacin (Levaquin) 250 mg DAILY@06 PO Last administered on 12/05/16 06:03 ; Admin Dose 250 MG; Start 12/04/16 at 06:00 Docusate Sodium (Colace) 100 mg BID PO Last administered on 12/05/16 09:19; Admin Dose 100 MG; Start 12/03/16 at 12:00 Lactulose (Enulose) 20 gm DAILY PRN PO CONSTIPATION Last administered on 08:03; Admin Dose 20 GM; Start 12/03/16 at 12:00 Guaifenesin/ Codeine Phosphate 10 ml 10 ml Q6 PRN PO COUGH Last administered on 12/04/16 15:29; Admin Dose 10 ML; Start 12/03/16 at 12:00 Sodium Chloride (NS) 1,000 ml @ 50 mls/hr Q20H ONCE IV Last administered on 21:23; Admin Dose 50 MLS/HR; Start 12/04/16 at 16:30; Stop 12/05/16 at 12: 29 Metoprolol Tartrate (Lopressor) 50 mg BID PO Last administered on 12/05/16 09: 19; Admin Dose 50 MG; Start 12/04/16 at 21:00 MALU MCKEON Dec 05, 2016 11:41
[2016-12-05] MEDS ORDERED: NA POLYST SULFON 15 GM/60 ML BTL PO ONE (12:00)
[2016-12-05 12:10] VITALS: BP 128/73
--- NOTE | 2016-12-05 12:58 | CONS ---
Date/Time of Note Date/Time of Note DATE: 12/05/16 TIME: 12:52 Assessment/Plan Assessment/Plan Additional Assessment/Plan 1. acute kidney injury due to prerenal azotemia, Cr elevating persistently- 1.80 today 2. Hyponatremia due to hypovolemic hyponatremia- improving 3. acute COPD exacerbation 4. HTN- well controlled 128/73 today 5. Hypothyroidism 6. Hyperkalemia 5.6 today - Kayexalate 30 mg x1 po given Plan: - IV levaquin- renally dose, BUN 55, Cr 1.80- cont IVF - Na improved to 133 today- sp Albumin 25% 100ml IV x 1 followed by NS at 50 cc/hr x 1 liter - IV solumedrol- change to Q 8 hr -continue to hold lisinopril due to rising creatiine, monitor K , -now BP more stable today -will follow up. -FLORINA joyner/staff Consultation Date/Type/Reason Admit Date/Time Nov 29, 2016 at 17:53 Initial Consult Date 11/30/16 Type of Consultation: Pulmonary Referring Provider: JONAS CALDERON MD 24 HR Interval Summary Free Text/Dictation sitting up in bed, having lunch, denies any complaints. Cr elevated today, Dw staff Constitutional: improved Detailed Summary Respiratory: no complaints Cardiovascular: no complaints Gastrointestinal: no complaints Genitourinary: no complaints Musculoskeletal: no complaints Skin: no complaints Exam/Review of Systems Vital Signs Vitals Vital Signs Date Time Temp Pulse Resp B/P Pulse Ox O2 Delivery O2 Flow Rate FiO2 12/05/16 12:10 128/73 12/05/16 08:12 98.0 72 16 94 12/05/16 08:02 21 Intake and Output 12/04/16 12/04/16 12/05/16 15:00 23:00 07:00 Intake Total 675 ml 880 ml Output Total 1050 ml Balance 675 ml -170 ml Exam Constitutional: alert, oriented, well developed Respiratory: clear to auscultation, normal air movement Cardiovascular: nl pulses, regular rate and rhythm Gastrointestinal: non-tender, soft Musculoskeletal: nl extremities to inspection Extremities: normal pulses Neurological: nl mental status, nl speech Results Result Diagram: 12/05/16 0548 12/05/16 0548 Results 24 hrs Laboratory Tests Test 12/05/16 05:48 White Blood Count 7.6 Red Blood Count 3.54 L Hemoglobin 11.3 L Hematocrit 32.0 L Mean Corpuscular Volume 90.4 Mean Corpuscular Hemoglobin 31.9 Mean Corpuscular Hemoglobin Concent 35.3 Red Cell Distribution Width 12.3 Platelet Count 188 Mean Platelet Volume 11.4 H Neutrophils % 80.3 H Lymphocytes % 10.3 L Monocytes % 6.8 Eosinophils % 0.0 Basophils % 0.1 Nucleated Red Blood Cells % 0.0 Neutrophils # (Manual) 6.1 Lymphocytes # 0.8 Monocytes # 0.5 Eosinophils # 0.0 Basophils # 0.0 Nucleated Red Blood Cells # 0.0 Sodium Level 133 L Potassium Level 5.6 H Chloride Level 101 Carbon Dioxide Level 22 Anion Gap 16 Blood Urea Nitrogen 58 H Creatinine 1.80 H Glucose Level 121 Calcium Level 9.0 B-Type Natriuretic Peptide 1010 H Medications Medications Current Medications Aspirin (Halfprin) 81 mg DAILY PO Last administered on 12/05/16 09:19; Admin Dose 81 MG; Start 11/30/16 at 09:00 Montelukast Sodium (Singulair) 10 mg QHS PO Last administered on 12/04/16 21:21 ; Admin Dose 10 MG; Start 11/30/16 at 21:00 Naproxen (Naprosyn) 250 mg BID PO Last administered on 12/05/16 09:19; Admin Dose 250 MG; Start 11/30/16 at 09:00 Pantoprazole (Protonix Tab) 40 mg DAILY@06 PO Last administered on 12/05/16 06: 04; Admin Dose 40 MG; Start 11/30/16 at 06:00 Hydralazine HCl (Apresoline) 10 mg Q6 PRN IV ELEVATED BLOOD PRESSURE Last administered on 11/30/16 08:49; Admin Dose 10 MG; Start 11/29/16 at 21:30 Enoxaparin Sodium (Lovenox) 30 mg DAILY SC Last administered on 12/05/16 09:20 ; Admin Dose 30 MG; Start 11/30/16 at 09:00 Acetaminophen (Tylenol Tab) 650 mg Q4H PRN PO PAIN AND OR ELEVATED TEMP Last administered on 12/02/16 16:27; Admin Dose 650 MG; Start 11/30/16 at 06:47 Isosorbide Dinitrate (Isordil) 10 mg TID PO Last administered on 12/05/16 12:10 ; Admin Dose 10 MG; Start 11/30/16 at 14:00 Minoxidil (Loniten) 5 mg BID PO Last administered on 12/05/16 09:20; Admin Dose 5 MG; Start 12/01/16 at 21:00 Methylprednisolone Sodium Succinate (Solu-Medrol) 20 mg Q8 IV Last administered on 12/05/16 06:03; Admin Dose 20 MG; Start 12/01/16 at 22:00 Hydralazine HCl (Apresoline) 50 mg Q8 PO Last administered on 12/03/16 05:35; Admin Dose 50 MG; Start 12/02/16 at 14:00; Status Future Hold Levofloxacin (Levaquin) 250 mg DAILY@06 PO Last administered on 12/05/16 06:03 ; Admin Dose 250 MG; Start 12/04/16 at 06:00 Docusate Sodium (Colace) 100 mg BID PO Last administered on 12/05/16 09:19; Admin Dose 100 MG; Start 12/03/16 at 12:00 Lactulose (Enulose) 20 gm DAILY PRN PO CONSTIPATION Last administered on 08:03; Admin Dose 20 GM; Start 12/03/16 at 12:00 Guaifenesin/ Codeine Phosphate (Robitussin Ac Liquid Cup) 10 ml Q6 PRN PO COUGH Last administered on 12/04/16 15:29; Admin Dose 10 ML; Start 12/03/16 at 12:00 Metoprolol Tartrate (Lopressor) 50 mg BID PO Last administered on 12/05/16 09: 19; Admin Dose 50 MG; Start 12/04/16 at 21:00 MELVIN MARROQUIN Dec 05, 2016 12:58
[2016-12-05 14:48] VITALS: BP 127/63; RESP 19
[2016-12-05 20:00] VITALS: BP 176/73; RESP 18
[2016-12-05] MEDS: MONTELUKAST 10 MG TAB PO SCH (21:08)
[2016-12-05 23:00] VITALS: BP 115/58; RESP 18
[2016-12-06] MEDS: ALBUTEROL/IPRATROPIUM (NEB) 3 ML AMP HHN SCH ×3 (01:58→13:39)
[2016-12-06 02:00] VITALS: BP 122/58; RESP 18
[2016-12-06] MEDS: LEVOTHYROXINE 50 MCG TAB PO SCH (06:06)
[2016-12-06] MEDS: METHYLPREDNISOLONE 40 MG INJ IV SCH (06:06)
[2016-12-06] MEDS: LEVOFLOXACIN 250 MG TAB PO SCH (06:06)
[2016-12-06] MEDS: PANTOPRAZOLE (EC) 40 MG TAB PO SCH (06:06)
[2016-12-06 06:10] LABS: BASOPHILS % 0.1 % (0.0-2.0); HEMATOCRIT 30.7 % (42.0-52.0); HEMOGLOBIN 10.9 g/dl (14.0-18.0); LYMPHOCYTES # 0.9 10^3/ul (0.8-2.9); LYMPHOCYTES % 9.8 % (15.0-51.0); MEAN CORPUSCULAR HEMOGLOBIN 32.2 pg (29.0-33.0); MEAN CORPUSCULAR HGB CONC 35.5 g/dl (32.0-37.0); MEAN CORPUSCULAR VOLUME 90.6 fl (82.0-101.0); MEAN PLATELET VOLUME 11.3 fl (7.4-10.4); MONOCYTE # 0.5 10^3/ul (0.3-0.9); MONOCYTES % 5.9 % (0.0-11.0); NEUTROPHILS % 81.7 % (39.0-77.0); PLATELET COUNT 189 10^3/UL (140-415); RED BLOOD COUNT 3.39 10^6/ul (4.70-6.10); RED CELL DISTRIBUTION WIDTH 12.5 % (11.5-14.5); WHITE BLOOD COUNT 8.7 10^3/ul (4.8-10.8)
[2016-12-06 06:32] LABS: CALCIUM 8.5 mg/dl (8.4-10.2); CREATININE 1.62 mg/dl (0.61-1.24); MAGNESIUM 1.9 mg/dl (1.7-2.5); PHOSPHORUS 5.4 mg/dl (2.5-4.9); POTASSIUM 4.1 mmol/L (3.5-5.1)
[2016-12-06 07:50] VITALS: BP 154/70; RESP 16
[2016-12-06] MEDS: MINOXIDIL 2.5 MG TAB PO SCH (09:38)
[2016-12-06] MEDS: DOCUSATE SODIUM 100 MG CAP PO SCH (09:38)
[2016-12-06] MEDS: GUAIFENESIN/CODEINE 5ML CUP PO PRN (09:38)
--- NOTE | 2016-12-06 09:38 | CONS ---
Date/Time of Note Date/Time of Note DATE: 12/06/16 TIME: 09:37 Consult Date/Type/Reason Admit Date/Time Nov 29, 2016 at 17:53 Initial Consult Date 11/30/16 Type of Consultation: Pulmonary Ordering Provider: JONAS CALDERON MD Subjective Comfortable. Objective Vital Signs Date Time Temp Pulse Resp B/P Pulse Ox O2 Delivery O2 Flow Rate FiO2 12/06/16 07:54 84 16 95 21 12/06/16 07:50 98.0 154/70 Intake and Output 12/05/16 12/05/16 12/06/16 15:00 23:00 07:00 Intake Total 1980 ml 350 ml Output Total 1200 ml Balance 780 ml 350 ml Exam GENERAL: Elderly gentleman comfortable at rest no acute distress VITAL SIGNS: per chart NECK: Supple. No JVD or lymphadenopathy. CARDIAC EXAM: S1, S2. No added sounds or murmurs. CHEST: Bilateral expiratory wheezing. ABDOMEN: Soft, nontender. No guarding or rebound. EXTREMITIES: No cyanosis, clubbing or edema. NEUROLOGIC: Generalized weakness. No focal deficits. Results/Medications Result Diagram: 12/06/16 0501 12/06/16 0501 Results 24 hrs Laboratory Tests Test 12/06/16 05:01 White Blood Count 8.7 Red Blood Count 3.39 L Hemoglobin 10.9 L Hematocrit 30.7 L Mean Corpuscular Volume 90.6 Mean Corpuscular Hemoglobin 32.2 Mean Corpuscular Hemoglobin Concent 35.5 Red Cell Distribution Width 12.5 Platelet Count 189 Mean Platelet Volume 11.3 H Neutrophils % 81.7 H Lymphocytes % 9.8 L Monocytes % 5.9 Eosinophils % 0.0 Basophils % 0.1 Nucleated Red Blood Cells % 0.0 Neutrophils # (Manual) 7.1 Lymphocytes # 0.9 Monocytes # 0.5 Eosinophils # 0.0 Basophils # 0.0 Nucleated Red Blood Cells # 0.0 Sodium Level 134 L Potassium Level 4.1 Chloride Level 101 Carbon Dioxide Level 23 Anion Gap 14 Blood Urea Nitrogen 59 H Creatinine 1.62 H Glucose Level 128 Calcium Level 8.5 Phosphorus Level 5.4 H Magnesium Level 1.9 Medications Current Medications Aspirin (Halfprin) 81 mg DAILY PO Last administered on 12/05/16t 09:19; Admin Dose 81 MG; Start 11/30/16 at 09:00 Montelukast Sodium (Singulair) 10 mg QHS PO Last administered on 12/05/16 21:08 ; Admin Dose 10 MG; Start 11/30/16 at 21:00 Naproxen (Naprosyn) 250 mg BID PO Last administered on 12/05/16 21:07; Admin Dose 250 MG; Start 11/30/16 at 09:00 Pantoprazole (Protonix Tab) 40 mg DAILY@06 PO Last administered on 12/06/16 06: 06; Admin Dose 40 MG; Start 11/30/16 at 06:00 Hydralazine HCl (Apresoline) 10 mg Q6 PRN IV ELEVATED BLOOD PRESSURE Last administered on 11/30/16 08:49; Admin Dose 10 MG; Start 11/29/16 at 21:30 Enoxaparin Sodium (Lovenox) 30 mg DAILY SC Last administered on 12/05/16 09:20 ; Admin Dose 30 MG; Start 11/30/16 at 09:00 Acetaminophen (Tylenol Tab) 650 mg Q4H PRN PO PAIN AND OR ELEVATED TEMP Last administered on 12/02/16 16:27; Admin Dose 650 MG; Start 11/30/16 at 06:47 Isosorbide Dinitrate (Isordil) 10 mg TID PO Last administered on 12/05/16 21:08 ; Admin Dose 10 MG; Start 11/30/16 at 14:00 Minoxidil (Loniten) 5 mg BID PO Last administered on 12/05/16 21:07; Admin Dose 5 MG; Start 12/01/16 at 21:00 Methylprednisolone Sodium Succinate (Solu-Medrol) 20 mg Q8 IV Last administered on 12/06/16 06:06; Admin Dose 20 MG; Start 12/01/16 at 22:00 Hydralazine HCl (Apresoline) 50 mg Q8 PO Last administered on 12/03/16 05:35; Admin Dose 50 MG; Start 12/02/16 at 14:00; Status Future Hold Levofloxacin (Levaquin) 250 mg DAILY@06 PO Last administered on 12/06/16 06:06 ; Admin Dose 250 MG; Start 12/04/16 at 06:00 Docusate Sodium (Colace) 100 mg BID PO Last administered on 12/05/16 21:07; Admin Dose 100 MG; Start 12/03/16 at 12:00 Lactulose (Enulose) 20 gm DAILY PRN PO CONSTIPATION Last administered on 08:03; Admin Dose 20 GM; Start 12/03/16 at 12:00 Guaifenesin/ Codeine Phosphate (Robitussin Ac Liquid Cup) 10 ml Q6 PRN PO COUGH Last administered on 12/04/16 15:29; Admin Dose 10 ML; Start 12/03/16 at 12:00 Metoprolol Tartrate (Lopressor) 50 mg BID PO Last administered on 12/05/16 21: 08; Admin Dose 50 MG; Start 12/04/16 at 21:00 Assessment/Plan Chief Complaint/Hosp Course Assessment 1. Acute tracheobronchitis improved. 2. Hypoxemic respiratory distress improved. 3. History of hypothyroidism 4. Mild renal insufficiency 5. Doubt ACS. 6. Hyperkalemia improved. Plan 1. Continue bronchodilators 2. Continue steroid taper 3. Continue to encourage out of bed Dc planning. ? Problems: ISABEL DONG MD, [facility] Dec 06, 2016 09:38
[2016-12-06] MEDS: NAPROXEN 250 MG TAB PO SCH (09:39)
[2016-12-06] MEDS: ASPIRIN (EC) 81 MG TAB PO SCH (09:39)
[2016-12-06] MEDS: ISOSORBIDE DINITRATE 10 MG TAB PO SCH ×2 (09:39→13:05)
[2016-12-06] MEDS: METOPROLOL 25 MG TAB PO SCH (09:39)
[2016-12-06] MEDS: ENOXAPARIN 30 MG/0.3 ML SYG SC SCH (09:42)
--- NOTE | 2016-12-06 13:41 | CONS ---
Date/Time of Note Date/Time of Note DATE: 12/06/16 TIME: 13:19 Assessment/Plan Assessment/Plan Additional Assessment/Plan 1. acute kidney injury due to prerenal azotemia, Cr elevating persistently- 1.62 today 2. Hyponatremia due to hypovolemic hyponatremia- improving 134 today 3. acute COPD exacerbation 4. HTN- well controlled 154/70 today 5. Hypothyroidism 6. Hyperkalemia - resolved Plan: - IV Levaquin- renally dose, BUN 55, Cr 1.62- cont IVF - Na improved to 134 today- sp Albumin, NS x 1 liter - IV solumedrol- change to Q 8 hr - continue to hold lisinopril due to rising creatinine, monitor K , -now BP more stable today -will follow up. - Going home today -FLORINA joyner/staff Consultation Date/Type/Reason Admit Date/Time Nov 29, 2016 at 17:53 Initial Consult Date 11/30/16 Type of Consultation: Pulmonary Referring Provider: JONAS CALDERON MD 24 HR Interval Summary Free Text/Dictation nad, wants to go home , K is normal. dw staff Detailed Summary Respiratory: no complaints Cardiovascular: no complaints Gastrointestinal: no complaints Genitourinary: no complaints Musculoskeletal: no complaints Skin: no complaints Exam/Review of Systems Vital Signs Vitals Vital Signs Date Time Temp Pulse Resp B/P Pulse Ox O2 Delivery O2 Flow Rate FiO2 12/06/16 07:54 84 16 95 21 12/06/16 07:50 98.0 154/70 Intake and Output 12/05/16 12/05/16 12/06/16 15:00 23:00 07:00 Intake Total 1980 ml 350 ml Output Total 1200 ml Balance 780 ml 350 ml Exam Constitutional: alert, oriented Respiratory: clear to auscultation Cardiovascular: nl pulses, regular rate and rhythm Gastrointestinal: non-tender, soft Musculoskeletal: nl extremities to inspection Extremities: normal pulses Neurological: nl mental status, nl speech Results Result Diagram: 12/06/16 0501 12/06/16 0501 Results 24 hrs Laboratory Tests Test 12/06/16 05:01 White Blood Count 8.7 Red Blood Count 3.39 L Hemoglobin 10.9 L Hematocrit 30.7 L Mean Corpuscular Volume 90.6 Mean Corpuscular Hemoglobin 32.2 Mean Corpuscular Hemoglobin Concent 35.5 Red Cell Distribution Width 12.5 Platelet Count 189 Mean Platelet Volume 11.3 H Neutrophils % 81.7 H Lymphocytes % 9.8 L Monocytes % 5.9 Eosinophils % 0.0 Basophils % 0.1 Nucleated Red Blood Cells % 0.0 Neutrophils # (Manual) 7.1 Lymphocytes # 0.9 Monocytes # 0.5 Eosinophils # 0.0 Basophils # 0.0 Nucleated Red Blood Cells # 0.0 Sodium Level 134 L Potassium Level 4.1 Chloride Level 101 Carbon Dioxide Level 23 Anion Gap 14 Blood Urea Nitrogen 59 H Creatinine 1.62 H Glucose Level 128 Calcium Level 8.5 Phosphorus Level 5.4 H Magnesium Level 1.9 Medications Medications Current Medications Aspirin (Halfprin) 81 mg DAILY PO Last administered on 12/06/16 09:39; Admin Dose 81 MG; Start 11/30/16 at 09:00 Montelukast Sodium (Singulair) 10 mg QHS PO Last administered on 12/05/16 21:08 ; Admin Dose 10 MG; Start 11/30/16 at 21:00 Naproxen (Naprosyn) 250 mg BID PO Last administered on 12/06/16 09:39; Admin Dose 250 MG; Start 11/30/16 at 09:00 Pantoprazole (Protonix Tab) 40 mg DAILY@06 PO Last administered on 12/06/16 06: 06; Admin Dose 40 MG; Start 11/30/16 at 06:00 Hydralazine HCl (Apresoline) 10 mg Q6 PRN IV ELEVATED BLOOD PRESSURE Last administered on 11/30/16 08:49; Admin Dose 10 MG; Start 11/29/16 at 21:30 Enoxaparin Sodium (Lovenox) 30 mg DAILY SC Last administered on 12/06/16 09:42 ; Admin Dose 30 MG; Start 11/30/16 at 09:00 Acetaminophen (Tylenol Tab) 650 mg Q4H PRN PO PAIN AND OR ELEVATED TEMP Last administered on 12/02/16 16:27; Admin Dose 650 MG; Start 11/30/16 at 06:47 Isosorbide Dinitrate (Isordil) 10 mg TID PO Last administered on 12/06/16 13:05 ; Admin Dose 10 MG; Start 11/30/16 at 14:00 Minoxidil (Loniten) 5 mg BID PO Last administered on 12/06/16 09:38; Admin Dose 5 MG; Start 12/01/16 at 21:00 Hydralazine HCl (Apresoline) 50 mg Q8 PO Last administered on 12/03/16 05:35; Admin Dose 50 MG; Start 12/02/16 at 14:00; Status Future Hold Levofloxacin (Levaquin) 250 mg DAILY@06 PO Last administered on 12/06/16 06:06 ; Admin Dose 250 MG; Start 12/04/16 at 06:00 Docusate Sodium (Colace) 100 mg BID PO Last administered on 12/06/16 09:38; Admin Dose 100 MG; Start 12/03/16 at 12:00 Lactulose (Enulose) 20 gm DAILY PRN PO CONSTIPATION Last administered on 08:03; Admin Dose 20 GM; Start 12/03/16 at 12:00 Guaifenesin/ Codeine Phosphate (Robitussin Ac Liquid Cup) 10 ml Q6 PRN PO COUGH Last administered on 12/06/16 09:38; Admin Dose 10 ML; Start 12/03/16 at 12:00 Metoprolol Tartrate (Lopressor) 50 mg BID PO Last administered on 12/06/16 09: 39; Admin Dose 50 MG; Start 12/04/16 at 21:00 Prednisone (Prednisone) 40 mg DAILY PO ; Start 12/07/16 at 09:00 MELVIN MARROQUIN Dec 06, 2016 13:29
[2016-12-06 14:00] VITALS: BP 136/62; RESP 16
[2016-12-07] MEDS ORDERED: predniSONE 20 MG TAB PO SCH (09:00)
== END 2016-12-06 14:25 | disposition home or self-care (01) | DRG 191 ==
LOC: E/R 11:55 → PP2 17:53
PROVIDERS: ADMIT Internal Medicine; ATTEND Internal Medicine
DX: J44.0 Chronic obstructive pulmonary disease with (acute) lower respiratory infection (principal); N17.9 Acute kidney failure, unspecified; E87.5 Hyperkalemia; E87.1 Hypo-osmolality and hyponatremia; D64.9 Anemia, unspecified; I16.1 Hypertensive emergency; J44.1 Chronic obstructive pulmonary disease with (acute) exacerbation; J20.9 Acute bronchitis, unspecified; I10 Essential (primary) hypertension; E03.9 Hypothyroidism, unspecified; R09.02 Hypoxemia; R07.9 Chest pain, unspecified
CPT/HCPCS: 36415; 71010; 80048; 80061; 82550; 82553; 83735; 83880; 84100; 84439; 84443; 84484; 85025; 85610; 85730; 87081; 93005; 93306; 94640; 94664; 96374; 96375; J0360; J1650; J1956; J2920; J2930; J7030; P9047

== ENCOUNTER 2017-03-12 12:27 | Emergency (ER) | payer OTHER ==
[~2017-03-12] VITALS: Ht 167.6 cm; Wt 93.6 kg
[2017-03-12 12:32] VITALS: Ht 167.6 cm; Wt 93.6 kg
[2017-03-12] MEDS ORDERED: ALBUTEROL 0.5% (NEB) 2.5 MG/0.5 ML AMP NEB STA (13:35)
[2017-03-12] MEDS ORDERED: predniSOLONE (3 MG/ML) CUP PO STA (13:35)
[2017-03-12] MEDS ORDERED: IPRATROPIUM (NEB) 0.5 MG/2.5 ML AMP NEB STA (13:35)
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
[2017-03-12] MEDS ORDERED: AZIT250T94 PO (14:36)
[2017-03-12] MEDS ORDERED: FLUT12HF IH (14:36)
[2017-03-12] MEDS ORDERED: PRED20TA PO (14:36)
[2017-03-12] MEDS ORDERED: ALBU2.5V3 NEB (14:54)
[2017-03-12 15:00] VITALS: BP 166/67; PULSE 87; RESP 20; TEMP 98.3
== END 2017-03-12 15:00 | disposition home or self-care (01) ==
LOC: FTE 12:27
DX: J44.9 Chronic obstructive pulmonary disease, unspecified (principal); J20.9 Acute bronchitis, unspecified; J45.909 Unspecified asthma, uncomplicated; I10 Essential (primary) hypertension; E03.9 Hypothyroidism, unspecified; Z79.82 Long term (current) use of aspirin
CPT/HCPCS: 94644; J7510; Z7502; Z7610

== ENCOUNTER 2017-08-30 06:06 | Emergency (ER) | END 2017-08-30 09:48 | disposition home or self-care (01) ==

== ENCOUNTER 2017-09-18 11:14 | Inpatient (IN) | END 2017-10-01 19:32 | disposition home or self-care (01) | DRG 190 ==

== ENCOUNTER 2017-12-30 18:00 | Inpatient (IN) | END 2018-02-04 19:24 | disposition home health service (06) | DRG 291 ==